=== PATIENT | female | born 1950 | race Caucasian/White ===

== ENCOUNTER 2017-06-08 11:15 | Inpatient (IN) ==
[2017-06-08] MEDS ORDERED: 0.9 % Sodium Chloride 500 ML IVC ONE (11:37)
--- NOTE | 2017-06-08 11:42 | Emergency Department Note ---
Disposition Clinical Impression: Dysphagia Qualifiers: Dysphagia type: unspecified Qualified Code(s): R13.10 - Dysphagia, unspecified Pneumonia Qualifiers: Pneumonia type: due to unspecified organism Laterality: right Lung location: lower lobe of lung Qualified Code(s): J18.1 - Lobar pneumonia, unspecified organism Protein calorie malnutrition Qualifiers: Protein-calorie malnutrition severity: unspecified severity Qualified Code(s): E46 - Unspecified protein-calorie malnutrition Failure to thrive Qualifiers: Failure to thrive age range: in adult Qualified Code(s): R62.7 - Adult failure to thrive Disposition: Admitted As Inpatient Condition: Fair Referrals: Natalya Vasquez MD [Primary Care Provider] - Forms: ED Satisfaction Letter, Work/School Release General Adult HPI - General Chief complaint: ED General Medical Stated complaint: Hypotension Time Seen by Provider: 06/08/17 11:20 Source: patient Limitations: no limitations Nursing Notes Reviewed: Yes Vital Signs Reviewed: Yes - History of Present Illness HPI Narrative: 67 year old female with a past medical history of COPD. She reports generalized fatigue and difficulty swallowing and significant weight loss over the last multiple months. She reports it is getting especially severe and that she had difficulty getting out of her chair today because of her fatigue. She has a long history of smoking and has had a chronic cough now for some time. She reports that when she is tries to swallow things she regurgitates it back up into her nose. Due to this she says that she is not eating. She denies any area of pain aside from a small part of her right upper back where some ribs are now sticking out that are uncomfortable to lay on. She denies any known fever. Her cough is nonproductive. She has lost over 50 pounds over the last few months. She does not have a history of cancer that she is aware of. She does not have any abdominal pain. She reports that she took her blood pressure home yesterday and that her systolic blood pressure was 90. Pain Scale: 0 Improves with: nothing Worsens with: nothing Associated symptoms: Reports: denies other symptoms Treatments Prior to Arrival: none - Related Data Home Medications Medication Instructions Recorded Confirmed Albuterol Neb [Proventil Neb] 2.5 mg IH Q4H PRN 12/22/15 07/23/16 Albuterol Sulfate [Proair Hfa] 2 puff IH Q4H PRN 12/22/15 07/23/16 Fluticasone/Salmeterol [Advair 1 puff IH BID 12/22/15 07/23/16 250-50 Diskus] Tiotropium [Spiriva] 18 mcg IH 0700 12/22/15 07/23/16 Previous Rx's Medication Instructions Recorded Lactobacillus [Culturelle] 1 each PO BID #6 cap.sprink 07/26/16 Loratadine [Claritin] 10 mg PO DAILY PRN #0 07/26/16 Allergies Allergy/AdvReac Type Severity Reaction Status Date / Time NSAIDS (Non-Steroidal AdvReac unknown Verified 06/08/17 13:26 Anti-Inflamma All systems ED: reviewed and negative except as stated. Constitutional: Denies: fever ENT ED: Denies: throat pain Cardiovascular: Denies: chest pain Respiratory: Reports: cough, dyspnea Musculoskeletal: Reports: back pain (right upper back) Neurological: Denies: headache Endocrine: Reports: fatigue Past Medical History - Past Medical History Attestation: Yes The following information was validated with the patient. Source: patient Medical history: Reports: non-contributory Surgical history: Reports: other Psychiatric history: Reports: anxiety [employer] history: Reports: bilateral tubal ligation - Social History Smoking Status: Current every day smoker Smokeless Tobacco Status: No Alcohol use: Reports: none Drug use: Reports: none Physical Exam - General Limitations: no limitations General appearance: alert, in no apparent distress, cachectic - Head Head exam: atraumatic - Eye Eye exam: Present: normal appearance, PERRL - ENT ENT exam: normal exam - Neck Neck exam: Present: normal inspection - Chest Chest inspection: Present: normal inspection, other (Posterior ribs are very prominent. The angles of rib on the right side is more prominent in the angle rib on the left which is the area that she says is uncomfortable to lay on. No gross deformity is noted). Absent: rash - Respiratory Respiratory exam: Present: other (diminished breath sounds throughout. Mild occasional wheezes present) - Cardiovascular Cardiovascular exam: Present: regular rate, normal rhythm - Abdominal Exam Abdominal exam: Present: soft, Non-Tender - Extremities Exam Extremities exam: Present: normal inspection - Neurological Exam Neurological exam: Present: alert, oriented X3 - Psychiatric Psychiatric exam: Present: normal affect, normal mood - Skin Skin exam: Present: warm, dry Course Course Narrative: No mass is seen on imaging. CT abdomen shows nothing acute. CTA chest shows pneumonia. CT neck negative. Will give antibiotics and IVF and admit. Pre- albumin is low. Unclear etiology of difficulty swallowing. Vital Signs Temperature 98.6 F 06/08/17 11:16 Pulse Rate 106 06/08/17 11:16 Respiratory Rate 16 06/08/17 11:16 Blood Pressure 126/83 06/08/17 11:16 O2 Sat by Pulse Oximetry 98 06/08/17 11:16 Temperature 98.6 F 06/08/17 11:16 Pulse Rate 97 06/08/17 14:42 Respiratory Rate 20 06/08/17 14:42 Blood Pressure 125/79 06/08/17 14:42 O2 Sat by Pulse Oximetry 92 06/08/17 14:42 Oxygen Delivery Oxygen Delivery Nasal Cannula Medical Decision Making - Medical Records Medical records reviewed: Yes I reviewed the patient's medical records. - Lab Data Lab results reviewed: Yes I reviewed the patient's lab results. Result diagrams: 06/08/17 12:00 06/08/17 12:00 Lab Results 06/08/17 06/08/17 06/08/17 Range/Units 12:00 12:00 12:00 WBC 12.1 H (4.3-11.1) K/mcL RBC 5.22 H (3.82-4.97) M/mcL Hgb 17.0 H (11.5-15.4) g/dL Hct 48.8 H (35.3-44.9) % MCV 93.5 (83.0-100.0) fL MCH 32.6 (28.0-33.3) pg MCHC 34.8 (31.6-35.5) g/dL RDW 12.2 (11.5-14.5) % Plt Count 150 (140-400) K/mcL MPV 10.0 (9.4-12.4) fL Immature Gran % 0.6 (0-4) % Seg Neutrophils % 82.5 % Lymphocytes % 12.1 % Monocytes % 4.6 % Eosinophils % 0.0 % Basophils % 0.2 % Neutrophils # 9.9 H (1.6-8.9) K/mcL Lymphocytes # 1.5 (0.6-4.6) K/mcL Monocytes # 0.6 (0.0-1.3) K/mcL Eosinophils # 0.0 (0.0-0.6) K/mcL Basophils # 0.0 (0.0-0.2) K/mcL Sodium 133 L (136-145) mEq/L Potassium 4.2 (3.5-5.1) mEq/L Chloride 99 (98-107) mEq/L Carbon Dioxide 28 (23-29) mEq/L BUN 8 (8-23) mg/dL Creatinine 0.49 L (0.60-1.20) mg/dL Est GFR ( Amer) > 60 (> 60) Est GFR (Non-Af Amer) > 60 (> 60) BUN/Creatinine Ratio 16 (6-26) Glucose 118 H (70-105) mg/dL Calculated Osmolality 275 L (280-300) Calcium 9.5 (8.6-10.3) mg/dL Phosphorus 3.7 (2.7-4.5) mg/dL Magnesium 1.8 (1.6-2.6) mg/dL Total Bilirubin 0.8 (0.3-1.0) mg/dL Direct Bilirubin 0.2 (0.0-0.2) mg/dL Indirect Bilirubin 0.6 (0.0-1.2) mg/dL AST 23 (13-39) Units/L ALT 19 (7-52) Units/L Alkaline Phosphatase 78 (34-104) Units/L Troponin I (< 0.04) ng/mL Serum Total Protein 7.1 (6.4-8.9) g/dL Albumin 3.8 (3.5-5.7) g/dL Globulin 3.3 (2.4-3.5) g/dL Albumin/Globulin Ratio 1.2 (1.1-2.2) Prealbumin 8.6 L (17.0-34.0) mg/dL Lipase 3 L (11-82) Units/L TSH (0.340-5.600) mcIU/mL Urine Color (Yellow) Urine Clarity (Clear) Urine pH (5.0-8.0) pH Units Ur Specific [place] (1.010-1.025) Urine Protein (Neg-Trace) mg/dL Urine Glucose (UA) (Normal) mg/dL Urine Ketones (Negative) mg/dL Urine Blood (Negative) Urine Nitrite (Negative) Urine Bilirubin (Negative) Urine Urobilinogen (Normal) mg/dL Ur Leukocyte Esterase (Negative) Ur Culture Indicated? (NO) 06/08/17 06/08/17 06/08/17 Range/Units 12:00 12:00 14:45 WBC (4.3-11.1) K/mcL RBC (3.82-4.97) M/mcL Hgb (11.5-15.4) g/dL Hct (35.3-44.9) % MCV (83.0-100.0) fL MCH (28.0-33.3) pg MCHC (31.6-35.5) g/dL RDW (11.5-14.5) % Plt Count (140-400) K/mcL MPV (9.4-12.4) fL Immature Gran % (0-4) % Seg Neutrophils % % Lymphocytes % % Monocytes % % Eosinophils % % Basophils % % Neutrophils # (1.6-8.9) K/mcL Lymphocytes # (0.6-4.6) K/mcL Monocytes # (0.0-1.3) K/mcL Eosinophils # (0.0-0.6) K/mcL Basophils # (0.0-0.2) K/mcL Sodium (136-145) mEq/L Potassium (3.5-5.1) mEq/L Chloride (98-107) mEq/L Carbon Dioxide (23-29) mEq/L BUN (8-23) mg/dL Creatinine (0.60-1.20) mg/dL Est GFR ( Amer) (> 60) Est GFR (Non-Af Amer) (> 60) BUN/Creatinine Ratio (6-26) Glucose (70-105) mg/dL Calculated Osmolality (280-300) Calcium (8.6-10.3) mg/dL Phosphorus (2.7-4.5) mg/dL Magnesium (1.6-2.6) mg/dL Total Bilirubin (0.3-1.0) mg/dL Direct Bilirubin (0.0-0.2) mg/dL Indirect Bilirubin (0.0-1.2) mg/dL AST (13-39) Units/L ALT (7-52) Units/L Alkaline Phosphatase (34-104) Units/L Troponin I 0.03 (< 0.04) ng/mL Serum Total Protein (6.4-8.9) g/dL Albumin (3.5-5.7) g/dL Globulin (2.4-3.5) g/dL Albumin/Globulin Ratio (1.1-2.2) Prealbumin (17.0-34.0) mg/dL Lipase (11-82) Units/L TSH 1.113 (0.340-5.600) mcIU/mL Urine Color Yellow (Yellow) Urine Clarity Clear (Clear) Urine pH 7.0 (5.0-8.0) pH Units Ur Specific [place] 1.021 (1.010-1.025) Urine Protein Negative (Neg-Trace) mg/dL Urine Glucose (UA) Normal (Normal) mg/dL Urine Ketones Negative (Negative) mg/dL Urine Blood Negative (Negative) Urine Nitrite Negative (Negative) Urine Bilirubin Negative (Negative) Urine Urobilinogen Normal (Normal) mg/dL Ur Leukocyte Esterase Negative (Negative) Ur Culture Indicated? NO (NO) - Radiology Data Radiology results reviewed: Yes I reviewed the patient's radiology results. - EKG Data EKG #1 EKG attestation: Yes I reviewed and interpreted this EKG. EKG shows normal: sinus rhythm Rate: normal Rhythm: NSR [place]/QRS: normal Interpretation: no acute changes Attestation Statement - Attestation Attestation: I, Liban Hopkins, examined this patient and my medical decision-making was reviewed with the CUSTOMER SERVICE SALES CONSULTANT/PA/Advanced Practice Nurse/Resident Physician. I agree with the documented findings, disposition and treatment plan as described except to the extent set forth below. 67-year-old female presents emergency Department with concerns of difficulty swallowing. Patient spoke with her PCP over the phone this morning who recommended she be evaluated in emergency department. Patient states she has difficulty swallowing solids and liquids over the past few weeks. She has had a significant amount of weight loss over the past 2 months. Patient states she feels fatigued and dehydrated with a very dry tongue. Denies other recent trauma, chest pain, shortness of breath. Evaluation in the emergency Department she had O2 saturation of 90% on room air. Patient will be evaluated for possible cancer secondary to weight loss and dysphagia. CTA ordered to eval for cancer as well as to rule out PE.
[2017-06-08 12:38] LABS: Basophils % 0.2 %; Hematocrit 48.8 % (35.3-44.9); Immature Granulocytes % 0.6 % (0-4); Lymphocytes # 1.5 K/mcL (0.6-4.6); Lymphocytes % 12.1 %; Mean Corpuscular HGB Conc 34.8 g/dL (31.6-35.5); Mean Corpuscular Hemoglobin 32.6 pg (28.0-33.3); Mean Corpuscular Volume 93.5 fL (83.0-100.0); Monocytes # 0.6 K/mcL (0.0-1.3); Monocytes % 4.6 %; Neutrophils # 9.9 K/mcL (1.6-8.9); Platelet Count 150 K/mcL (140-400); Red Blood Count 5.22 M/mcL (3.82-4.97); Red Cell Distribution Width 12.2 % (11.5-14.5); Segmented Neutrophils % 82.5 %
[2017-06-08 13:33] LABS: Alanine Aminotransferase 19 Units/L (7-52); Albumin 3.8 g/dL (3.5-5.7); Albumin/Globulin Ratio 1.2 (1.1-2.2); Alkaline Phosphatase 78 Units/L (34-104); Aspartate Amino Transferase 23 Units/L (13-39); BUN/Creatinine Ratio 16 (6-26); Bilirubin,Direct 0.2 mg/dL (0.0-0.2); Bilirubin,Indirect 0.6 mg/dL (0.0-1.2); Bilirubin,Total 0.8 mg/dL (0.3-1.0); Blood Urea Nitrogen 8 mg/dL (8-23); Calcium 9.5 mg/dL (8.6-10.3); Carbon Dioxide 28 mEq/L (23-29); Chloride 99 mEq/L (98-107); Globulin 3.3 g/dL (2.4-3.5); Glucose 118 mg/dL (70-105); Lipase 3 Units/L (11-82); Magnesium 1.8 mg/dL (1.6-2.6); Osmolality,Calculated 275 (280-300); Phosphorous 3.7 mg/dL (2.7-4.5); Potassium 4.2 mEq/L (3.5-5.1); Sodium 133 mEq/L (136-145); Total Protein 7.1 g/dL (6.4-8.9); eGFR For African Americans > 60 (> 60); eGFR For Non-African Americans > 60 (> 60)
[2017-06-08] MEDS ORDERED: Levofloxacin 750 MG/150 ML 750 MG/150 ML BAG IVPB ONE (15:05)
[2017-06-08 15:09] LABS: Bilirubin,Urine Negative (Negative); Blood,Urine Negative (Negative); Clarity,Urine Clear (Clear); Color,Urine Yellow (Yellow); Glucose,Urine (UA) Normal (Normal); Ketones,Urine Negative (Negative); Leukocyte Esterase,Urine Negative (Negative); Nitrite,Urine Negative (Negative); Protein,Urine Negative (Neg-Trace); Specific Gravity,Urine 1.021 (1.010-1.025); Urobilinogen,Urine Normal (Normal)
[2017-06-08] MEDS ORDERED: *HR* HYDROcodone/Acet 5/325 mg TABLET PO PRN (21:12)
[2017-06-08] MEDS ORDERED: Acetaminophen 325 MG TABLET PO PRN (21:12)
[2017-06-08] MEDS ORDERED: Ondansetron ODT 4 MG TAB.RAPDIS SL PRN (21:12)
[2017-06-08] MEDS ORDERED: Naloxone 0.4 MG/ML INJ IVP PRN (21:12)
--- NOTE | 2017-06-08 22:09 | Internal Med History&Physical ---
<Devin Elam - Last Filed: 06/08/17 23:21> Date of Encounter: 06/08/17 Time of Encounter: 21:30 Assessment and Plan (1) Aspiration pneumonia Current visit: Yes Status: Acute History of oropharyngeal dysphagia with aspiration involves RML & RLL Patient on 2LpM O2 via NC Orders for IS, nebs, & Zosyn Further work up for oropharyngeal dysphagia as below Qualifiers: Aspiration pneumonia type: unspecified Laterality: right Lung location: unspecified part of lung Qualified Code(s): J69.0 - Pneumonitis due to inhalation of food and vomit (2) Oropharyngeal dysphagia Current visit: Yes Status: Acute significant weight loss concerning for underlying malignancy though can be attributed to the poor intake DDx includes malignancy, Sjogren's failed RN bedside swallow study will pursue further work up including ST swallow study, barium swallow, SSA-SSB- RF, and GI consult for consideration of EGD will keep patient NPO in the meantime with IVF (3) Failure to thrive Current visit: Yes Status: Acute secondary to dysphagia and markedly reduce PO intake consider nutrition consult once patient is no longer NPO Qualifiers: Failure to thrive age range: in adult Qualified Code(s): R62.7 - Adult failure to thrive (4) Xerostomia Current visit: Yes Status: Acute plan as above (5) Xerophthalmia Current visit: Yes Status: Acute artificial tears ordered (6) COPD (chronic obstructive pulmonary disease) Current visit: No Status: Chronic PRN O2 & neb tx ordered do not suspect acute exacerbation due to lack of wheezing or sputum Qualifiers: COPD type: unspecified COPD Qualified Code(s): J44.9 - Chronic obstructive pulmonary disease, unspecified (7) Tobacco abuse Current visit: No Status: Chronic nicotine patch TD (8) DVT prophylaxis Current visit: Yes Status: Acute SCDs, ambulate with assist, subQ heparin Internal Medicine - H&P: HPI Admitted From: Home Plans for Post Hospital Care: Home History of present illness: Ms. Lindo is a 67 year old female with history of COPD (non-O2 dependent) who presents to the ED today with CC of SOA, fatigue, and ongoing weight loss. These problems have been gradual and ongoing for several months. Patient also cites dry eyes, dry mouth, difficulty swallowing stating food gift, and her throat, and about a 50 pound weight loss over the last for 5 months. When asked specifically whether probation in today, patient tells me that she felt like she was so weak today that if she just stated that she would . Patient states that when she eats, she feels like the food gets tracking the throat and she often costs immediately after eating or drinking anything. Patient states that if she takes her time, she is able to swallow food it does not have any trouble keeping it down; specifically, patient is not have any regurgitation when she swallows passed her throat. Patient states that her eyes are often dry and that when she sleeps, she will wake up with her tongue feeling like the skin of an elephant. Denies any swelling and tenderness in her cheeks, changes in her voice, or throat pain. Patient also elaborates on a tension that she feels in her neck that spreads up into her bilateral ears, but has difficulty specifically characterizing beyond to say that much. Patient denies any other known medical conditions beside COPD. Patient does smoke a significant amount of tobacco rolling her own cigarettes, and does drink alcohol but denies any street drugs. No new medications recently. No fevers, syncope, lightheadedness, visual disturbances, confusion, chest pain, worsening cough or sputum production, nausea, vomiting, diarrhea, constipation, blood in stool, melena, dysuria, vaginal bleeding, or like swelling. Emergency department workup was overall normal with the exception of mild hyponatremia, mild leukocytosis, and chest imaging which revealed right middle lobe right lower lobe consolidation consistent with multi-lobular pneumonia. CTA was done and negative. All other labs were virtually within normal limits; borderline hemoconcentration on CBC is noted as well. Past Med Surg Social Fam HX - Past Medical History Attestation: Yes The following information was validated with the patient. Medical history: non-contributory, COPD Psychiatric history: anxiety - Past Surgical History Surgical History: other - Social History Smoking Status: Current every day smoker Smokeless Tobacco Status: No Alcohol use: none, occasionally (Patient rolls are on cigarettes) Drug use: none Current living situation: Home - Independent, Home Activity Level: Independent ambulation Recent Out of Country Travel Within the Last 8 Weeks: No Exposure or Possible Exposure to Illness During Travel: No - Family History Mother Adopted: No Family Member Ethnicity: Non- Living Status: Still Living Hx Family Cardiac Disorders: Yes (Unknown) Hx Family Cancer: Yes (Uterine) Hx Family Endocrine Disorder: Yes Father Adopted: No Family Member Ethnicity: Non- Living Status: Hx Family Cardiac Disorders: Yes (Angina) Hx Family GI Disorders: Yes Hx Family Endocrine Disorder: Yes Hx Family Neuromuscular Disorders: Yes (Multiple Sclerosis) Hx Family Neurologic Disorders: Yes Internal Medicine - H&P: Meds Albuterol Neb [Proventil Neb] 2.5 mg IH Q4H PRN 12/22/15 [History] Albuterol Sulfate [Proair Hfa] 2 puff IH Q4H PRN 12/22/15 [History] Fluticasone/Salmeterol [Advair 250-50 Diskus] 1 puff IH BID 12/22/15 [History] Tiotropium [Spiriva] 18 mcg IH 0700 12/22/15 [History] Lactobacillus [Culturelle] 1 each PO BID #6 cap.sprink 07/26/16 [Rx] Loratadine [Claritin] 10 mg PO DAILY PRN #0 07/26/16 [Rx] 3 Allergy/AdvReac Type Severity Reaction Status Date / Time NSAIDS (Non-Steroidal AdvReac unknown Verified 06/08/17 13:26 Anti-Inflamma All Systems PM: A 10-system review of systems was performed and is negative for pertinent findings except as documented above in the HPI. Review of systems: As per HPI - Constitutional Vitals: Temp Pulse Resp BP Pulse Ox 98.1 F 105 15 130/91 96 06/08/17 17:49 06/08/17 17:49 06/08/17 17:49 06/08/17 17:49 06/08/17 18:22 Exam: CONSTITUTIONAL: Alert and oriented X3, on nasal O2, calm/conversational, significant thoracic kyphosis, mild-moderate cachexia HEAD: Normocephalic; atraumatic. EYES: PERRL, no scleral icterus, no drainage, no conjunctival injection NOSE: The nose is normal in appearance without rhinorrhea Oropharynx: dry mucosa without any apparent glandular swelling RESP: NRD without use of accessory musculature, CTA b/l with no wheezes/rales/ rhonchi CARD: Regular rhythm, without murmurs, rubs, or gallop ABD: grossly normal, soft, non-tender, no guarding/distention/rigidity SKIN: normal appearance, no pallor/diaphoresis,mottling,jaundice,cyanosis EXT: DP/Rad pulses 2+ and symmetrical; no pedal edema; no other lesions seen PSYCH: appropriate mood/affect Internal Med - H&P Results - Labs CBC & Chem 7: 06/08/17 12:00 06/08/17 12:00 <Martha Don - Last Filed: 06/09/17 05:38> Date of Encounter: 06/09/17 Internal Medicine - H&P: HPI History of present illness: Ms. Lindo is a 67 year old female All Systems PM: A 10-system review of systems was performed and is negative for pertinent findings except as documented above in the HPI. - Constitutional Vitals: Temp Pulse Resp BP Pulse Ox 97.4 F L 84 15 113/73 96 06/09/17 02:35 06/09/17 02:35 06/09/17 02:35 06/09/17 02:35 06/09/17 02:35 Internal Med - H&P Results - Labs CBC & Chem 7: 06/09/17 04:27 06/09/17 04:27 Labs: Short CBC 06/09/17 Range/Units 04:27 WBC 7.8 (4.3-11.1) K/mcL Hgb 14.6 D (11.5-15.4) g/dL Hct 43.3 (35.3-44.9) % Plt Count 146 (140-400) K/mcL Neutrophils # 5.4 (1.6-8.9) K/mcL BMP 06/09/17 04:27 Sodium 134 L Potassium 3.8 Chloride 103 Carbon Dioxide 30 H BUN 6 L Creatinine 0.45 L Glucose 99 Calcium 8.8 Liver Function 06/09/17 Range/Units 04:27 Total Bilirubin 0.7 (0.3-1.0) mg/dL AST 12 L (13-39) Units/L ALT 12 (7-52) Units/L Alkaline Phosphatase 52 (34-104) Units/L Albumin 3.1 L (3.5-5.7) g/dL - Attending Attestation I have seen and examined this patient independently. I have discussed with resident physician Dr. Elam regarding the management plan. Agree with the documentation.
[2017-06-08] MEDS ORDERED: Methocarbamol 500 MG TABLET PO PRN (22:16)
[2017-06-08] MEDS ORDERED: Albuterol 2.5 MG/3 ML NEBULIZER IH PRN (22:24)
[2017-06-08] MEDS ORDERED: Ipratropium/Albuterol Neb 3 ML IH PRN (22:24)
[2017-06-08] MEDS: *HR* LORazepam 2 MG/ML VIAL IVP PRN (22:41)
[2017-06-08] MEDS: *HR* Heparin 5,000 UNIT/ML VIAL SQ SCH (22:41)
[2017-06-08] MEDS: Nicotine 21 MG PATCH.TD24 TD SCH (22:41)
[2017-06-08] MEDS: 0.9 % Sodium Chloride 1,000 ML IVC SCH (23:22)
[2017-06-09] MEDS: Piperacillin/Tazobactam 3.375 GM/200 ML BAG IVPB SCH ×3 (01:58→17:08)
[2017-06-09 05:09] LABS: Basophils % 0.3 %; Eosinophils % 0.4 %; Hematocrit 43.3 % (35.3-44.9); Immature Granulocytes % 0.3 % (0-4); Lymphocytes # 1.9 K/mcL (0.6-4.6); Lymphocytes % 24.1 %; Mean Corpuscular HGB Conc 33.7 g/dL (31.6-35.5); Mean Corpuscular Hemoglobin 32.2 pg (28.0-33.3); Mean Corpuscular Volume 95.6 fL (83.0-100.0); Monocytes # 0.5 K/mcL (0.0-1.3); Monocytes % 5.9 %; Neutrophils # 5.4 K/mcL (1.6-8.9); Platelet Count 146 K/mcL (140-400); Red Blood Count 4.53 M/mcL (3.82-4.97); Red Cell Distribution Width 12.3 % (11.5-14.5)
[2017-06-09 05:15] LABS: Hemoglobin 14.6 g/dL (11.5-15.4)
[2017-06-09 05:27] LABS: Alanine Aminotransferase 12 Units/L (7-52); Albumin 3.1 g/dL (3.5-5.7); Albumin/Globulin Ratio 1.2 (1.1-2.2); Alkaline Phosphatase 52 Units/L (34-104); Aspartate Amino Transferase 12 Units/L (13-39); BUN/Creatinine Ratio 13 (6-26); Bilirubin,Total 0.7 mg/dL (0.3-1.0); Blood Urea Nitrogen 6 mg/dL (8-23); Calcium 8.8 mg/dL (8.6-10.3); Carbon Dioxide 30 mEq/L (23-29); Chloride 103 mEq/L (98-107); Globulin 2.6 g/dL (2.4-3.5); Glucose 99 mg/dL (70-105); Osmolality,Calculated 276 (280-300); Potassium 3.8 mEq/L (3.5-5.1); Sodium 134 mEq/L (136-145); Total Protein 5.7 g/dL (6.4-8.9); eGFR For African Americans > 60 (> 60); eGFR For Non-African Americans > 60 (> 60)
[2017-06-09] MEDS: *HR* Heparin 5,000 UNIT/ML VIAL SQ SCH ×2 (05:30→17:12)
[2017-06-09] MEDS: Nicotine 21 MG PATCH.TD24 TD SCH (07:59)
[2017-06-09] MEDS: 0.9 % Sodium Chloride 1,000 ML IVC SCH (08:58)
--- NOTE | 2017-06-09 10:09 | Internal Med Progress Note ---
Date of Encounter: 06/09/17 Time of Encounter: 10:07 - Assessment and plan (1) Aspiration pneumonia Current Visit: Yes Status: Acute Assessment and plan: Continue with antibiotics with Zosyn. Follow up on cultures. Continue with IV fluids. Nebs treatments. Check urine strep and Legionella. Check sputum cultures. Qualifiers: Aspiration pneumonia type: unspecified Laterality: right Lung location: unspecified part of lung Qualified Code(s): J69.0 - Pneumonitis due to inhalation of food and vomit (2) Dysphagia Current Visit: Yes Status: Acute Assessment and plan: This is causing weight loss. She has other symptoms including dry eyes dry mouth. TSH is normal. Antibodies for Sjogren's syndrome has been sent. Speech to see. GI evaluation. Nothing by mouth. Qualifiers: Dysphagia type: oropharyngeal phase Qualified Code(s): R13.12 - Dysphagia, oropharyngeal phase (3) COPD (chronic obstructive pulmonary disease) Current Visit: No Status: Chronic Assessment and plan: 9 exacerbation. Continue inhalers. Qualifiers: COPD type: unspecified COPD Qualified Code(s): J44.9 - Chronic obstructive pulmonary disease, unspecified (4) Xerostomia Current Visit: Yes Status: Acute Assessment and plan: Symptomatic treatment. (5) Xerophthalmia Current Visit: Yes Status: Acute Assessment and plan: Symptomatic treatment. (6) Tobacco abuse Current Visit: No Status: Chronic Assessment and plan: Nicotine patch (7) DVT prophylaxis Current Visit: Yes Status: Acute Assessment and plan: Heparin subcutaneous - Subjective Interval history: Patient was seen and examined. She was admitted yesterday with multiple complaints. She is being treated for aspiration pneumonia here. Says that she has been losing weight and has been troubled with swallowing difficulties causing weight loss. She does mention dry eyes, dry mouth, and fatigue. She has been afebrile - Constitutional Vitals: Temp Pulse Resp BP Pulse Ox 97.8 F 90 16 133/80 93 06/09/17 07:16 06/09/17 07:16 06/09/17 07:16 06/09/17 07:16 06/09/17 07:16 Exam: GEN: NAD CVS: RRR. S1, S2, No m/r/g RESP: Diminished. Coarse breath sounds at the bases. ABD: Soft, NT, ND, +BS EXT: No edema. 2+ DP. No rashes NEURO: Nonfocal Internal Medicine: Result - Labs CBC & Chem 7: 06/09/17 04:27 06/09/17 04:27 Consult Discharge Plan - Plan Referrals: Natalya Vasquez MD [Primary Care Provider] -
[2017-06-09] MEDS: *HR* LORazepam 2 MG/ML VIAL IVP PRN (20:44)
[2017-06-10] MEDS: Piperacillin/Tazobactam 3.375 GM/200 ML BAG IVPB SCH ×2 (00:53→09:50)
[2017-06-10] MEDS: OxyCODONE CONC 5 MG/0.25 ML ORAL.SYG PO PRN ×2 (03:32→22:02)
[2017-06-10] MEDS: *HR* Heparin 5,000 UNIT/ML VIAL SQ SCH ×2 (03:33→18:41)
[2017-06-10 07:59] LABS: BUN/Creatinine Ratio 9 (6-26); Blood Urea Nitrogen 5 mg/dL (8-23); Calcium 8.9 mg/dL (8.6-10.3); Carbon Dioxide 29 mEq/L (23-29); Chloride 104 mEq/L (98-107); Glucose 97 mg/dL (70-105); Osmolality,Calculated 279 (280-300); Sodium 136 mEq/L (136-145); eGFR For African Americans > 60 (> 60); eGFR For Non-African Americans > 60 (> 60)
[2017-06-10 08:01] LABS: Basophils % 0.3 %; Eosinophils # 0.1 K/mcL (0.0-0.6); Eosinophils % 1.2 %; Hematocrit 48.8 % (35.3-44.9); Immature Granulocytes % 0.3 % (0-4); Lymphocytes # 1.5 K/mcL (0.6-4.6); Lymphocytes % 24.8 %; Mean Corpuscular HGB Conc 33.4 g/dL (31.6-35.5); Mean Corpuscular Hemoglobin 31.8 pg (28.0-33.3); Mean Corpuscular Volume 95.3 fL (83.0-100.0); Mean Platelet Volume 9.3 fL (9.4-12.4); Monocytes # 0.4 K/mcL (0.0-1.3); Platelet Count 171 K/mcL (140-400); Red Blood Count 5.12 M/mcL (3.82-4.97); Segmented Neutrophils % 67.4 %
[2017-06-10 08:04] LABS: Hemoglobin 16.3 g/dL (11.5-15.4)
--- NOTE | 2017-06-10 09:04 | Electrocardiograph Report ---
[facility] Test Date: 2017-06-08 Pat Name: Denise Lindo Department: 102 Room: 2A33 Gender: F Cooper Helper: Elizabeth : 1950 Requested By: William Camejo Order Number: [id number] Reading MD: Enrique Desir DO Measurements Intervals [place] Rate: 105 P: 64 AR: 164 QRS: 23 QRSD: 71 T: 51 QT: 310 QTc: 371 Interpretive Statements SINUS TACHYCARDIA LOW QRS VOLTAGE IN EXTREMITY LEADS [QRS DEFLECTION < 0.5 mV IN LIMB LEADS] SEPTAL MYOCARDIAL INFARCTION [40+ ms Q WAVE IN V1/V2], PROBABLY OLD Electronically Signed On 06-10-2017 9:03:28 EST by Enrique Desir DO
[2017-06-10] MEDS: Nicotine 21 MG PATCH.TD24 TD SCH (09:50)
--- NOTE | 2017-06-10 12:06 | Internal Med Progress Note ---
Date of Encounter: 06/10/17 Time of Encounter: 12:04 - Assessment and plan (1) Aspiration pneumonia Current Visit: Yes Status: Acute Assessment and plan: Change antibiotics to Unasyn. Nebs treatments. Wean down oxygen as tolerated. Negative urine strep and Legionella.. Sputum cultures pending. Qualifiers: Aspiration pneumonia type: unspecified Laterality: right Lung location: unspecified part of lung Qualified Code(s): J69.0 - Pneumonitis due to inhalation of food and vomit (2) Dysphagia Current Visit: Yes Status: Acute Assessment and plan: This is causing weight loss. She has other symptoms including dry eyes dry mouth. TSH is normal. Antibodies for Sjogren's syndrome has been sent. MBS ordered. On Modify diet. GI evaluation. Nothing by mouth after midnight in case GI decides to do an EGD Qualifiers: Dysphagia type: oropharyngeal phase Qualified Code(s): R13.12 - Dysphagia, oropharyngeal phase (3) COPD (chronic obstructive pulmonary disease) Current Visit: No Status: Chronic Assessment and plan: Not an exacerbation. Continue inhalers. Qualifiers: COPD type: unspecified COPD Qualified Code(s): J44.9 - Chronic obstructive pulmonary disease, unspecified (4) Xerostomia Current Visit: Yes Status: Acute Assessment and plan: Symptomatic treatment. (5) Xerophthalmia Current Visit: Yes Status: Acute Assessment and plan: Symptomatic treatment. (6) Tobacco abuse Current Visit: No Status: Chronic Assessment and plan: Nicotine patch (7) DVT prophylaxis Current Visit: Yes Status: Acute Assessment and plan: Heparin subcutaneous - Subjective Interval history: Patient was seen and examined. No acute events. She is feeling better. Afebrile. She was admitted with multiple complaints. She is being treated for aspiration pneumonia here. Has been losing weight and has been troubled with swallowing difficulties causing weight loss. She does mention dry eyes, dry mouth, and fatigue. She has been afebrile - Constitutional Vitals: Temp Pulse Resp BP Pulse Ox 98.1 F 97 16 131/81 98 06/10/17 10:57 06/10/17 10:57 06/10/17 10:57 06/10/17 10:57 06/10/17 10:57 Exam: GEN: NAD CVS: RRR. S1, S2, No m/r/g RESP: Diminished. Coarse breath sounds at the bases. ABD: Soft, NT, ND, +BS EXT: No edema. 2+ DP. No rashes NEURO: Nonfocal Internal Medicine: Result - Labs CBC & Chem 7: 06/10/17 07:31 06/10/17 07:31 Labs: Short CBC 06/10/17 Range/Units 07:31 WBC 5.9 (4.3-11.1) K/mcL Hgb 16.3 H D (11.5-15.4) g/dL Hct 48.8 H (35.3-44.9) % Plt Count 171 (140-400) K/mcL Neutrophils # 4.0 (1.6-8.9) K/mcL BMP 06/10/17 07:31 Sodium 136 Potassium 4.0 Chloride 104 Carbon Dioxide 29 BUN 5 L Creatinine 0.53 L Glucose 97 Calcium 8.9 Consult Discharge Plan - Plan Referrals: Natalya Vasquez MD [Primary Care Provider] -
[2017-06-10] MEDS: Ampicillin/Sulbactam 3,000 MG in 0.9 % Sodium Chloride Mini Bag 100 ML IVPB SCH (18:41)
[2017-06-10] MEDS: *HR* LORazepam 2 MG/ML VIAL IVP PRN (22:02)
[2017-06-11] MEDS: Ampicillin/Sulbactam 3,000 MG in 0.9 % Sodium Chloride Mini Bag 100 ML IVPB SCH ×4 (00:33→18:10)
[2017-06-11] MEDS: *HR* Heparin 5,000 UNIT/ML VIAL SQ SCH ×2 (05:58→17:59)
--- NOTE | 2017-06-11 11:29 | Gastroenterology Consult Note ---
Date of Encounter: 06/11/17 Time of Encounter: 10:15 - Assessment and plan (1) Dysphagia Current Visit: Yes Status: Acute Assessment and plan: Barium swallow completed today, deep penetration was seen without evidence of aspiration, reflux of contrast was noted into the nasal cavity. Encourage fluid intake today. Plan for EGD tomorrow with possible dilation, keep NPO at midnight. Qualifiers: Dysphagia type: oropharyngeal phase Qualified Code(s): R13.12 - Dysphagia, oropharyngeal phase (2) Weight loss Current Visit: Yes Status: Acute Assessment and plan: Weight over the past year: 98.1 lbs on 06/10/2017 98.2 lbs on 04/30/2017 111.6 lbs on 11/30/2016 110 lbs on 11/02/2016 110 lbs on 08/09/2016 Plan for EGD tomorrow. - Time Spent With Patient Total time spent is greater than 50% in coordination of care (as documented) at patient's floor/unit and/or counseling patient: GI History of Present Illness - Data of Consult Patient: new to practice Consult date: 06/11/17 Requesting Physician: Josef Austin - Consult Narrative Reason for consult: Dysphagia, weight loss History of present illness: Ms. Lindo is a 67 year old female with PMHx of COPD who presented to the ED with difficulty swallowing and reports weight loss of 50 lbs over the last few months. Patient states that when she eats, she feels like the food gets stuck in the throat and she often coughs immediately after eating or drinking anything. Patient states that if she takes her time, she is able to swallow food and does not have any trouble keeping it down. CT A/P with no acute process , chest CTA showed pneumonia, and CT neck was negative. She denies fever, chills , chest pain, nausea, vomiting, constipation, diarrhea, melena, or hematochezia. Procedures: None NSAIDs: None Anticoagulation: None Past Med Surg Social Fam HX - Past Medical History Medical history: non-contributory, COPD Psychiatric history: anxiety - Past Surgical History Surgical History: other - Social History Smoking Status: Current every day smoker Smokeless Tobacco Status: No Alcohol use: none, occasionally (Patient rolls are on cigarettes) Drug use: none - Family History Mother Adopted: No Family Member Ethnicity: Non- Living Status: Still Living Hx Family Cardiac Disorders: Yes (Unknown) Hx Family Cancer: Yes (Uterine) Hx Family Endocrine Disorder: Yes Father Adopted: No Family Member Ethnicity: Non- Living Status: Hx Family Cardiac Disorders: Yes (Angina) Hx Family GI Disorders: Yes Hx Family Endocrine Disorder: Yes Hx Family Neuromuscular Disorders: Yes (Multiple Sclerosis) Hx Family Neurologic Disorders: Yes - Gastrointestinal Gastrointestinal: Present: as per HPI - Constitutional Constitutional: as per HPI - EENT Eyes: as per HPI Ears: Present: as per HPI Nose, mouth and throat: Present: as per HPI - Cardiovascular Cardiovascular ROS: Present: as per HPI - Respiratory Respiratory IM: Present: as per HPI - Genitourinary Genitourinary: Absent: change in color, Urinary frequency - Neurological ROS Neurological GI: Present: as per HPI - Hematologic/Lymphatic Hematologic/Lymphatic pediatric: Present: as per HPI - Musculoskeletal Musculoskeletal ROS GI: Present: as per HPI - Integumentary Integumentary GI: Present: as per HPI - Psychiatric ROS Psychiatric GI: Present: as per HPI - Endocrine Endocrine IM: Present: as per HPI - Constitutional Vitals: Temp Pulse Resp BP Pulse Ox 98.0 F 93 17 132/81 99 06/11/17 08:49 06/11/17 08:49 06/11/17 08:49 06/11/17 08:49 06/11/17 08:49 General appearance: Present: cooperative, A&O X 3, no acute distress, answers questions appropriately - Head Head exam: Present: atraumatic, normocephalic - Eye Eye exam: Present: normal appearance, sclera anicteric - ENT ENT exam: Present: mucous membranes dry - Neck Neck exam general surgery: Present: normal inspection, trachea midline - Respiratory Respiratory exam: Present: decreased breath sounds, CTAB. Absent: rales, rhonchi - Cardiovascular Cardiovascular exam: Present: RRR, +S1, +S2 - GI/Abdominal GI/Abdominal exam: Present: soft, no peritoneal signs. Absent: distended, firm , guarding, tenderness - Rectal Rectal exam: Present: deferred - Extremities Exam Extremities exam: Present: warm - Neurological Exam Neurological exam: Present: no focal deficits - Psychiatric Psychiatric exam: Present: normal affect, normal mood - Skin Skin exam: Present: dry, intact, normal color, warm Results - Labs CBC & Chem 7: 01/21/18 07:31 06/10/17 07:31 Labs: Last Result Calcium 8.9 mg/dL (8.6-10.3) 06/10/17 07:31 Troponin I 0.03 ng/mL (< 0.04) 06/08/17 12:00 Entire Visit Hgb 16.3 g/dL (11.5-15.4) H D 06/10/17 07:31 Hct 48.8 % (35.3-44.9) H 06/10/17 07:31 Total Bilirubin 0.7 mg/dL (0.3-1.0) 06/09/17 04:27 AST 12 Units/L (13-39) L 06/09/17 04:27 ALT 12 Units/L (7-52) 06/09/17 04:27 Lipase 3 Units/L (11-82) L 06/08/17 12:00 - Impressions Impressions Videofluoroscopic Swallow 06/11/17 17:07 IMPRESSION: 1. Deep penetration without evidence of aspiration. Please see separate speech pathology report for full discussion of findings and recommendations. D/ / 06/11/2017 09:30:39 Danie Felipe MD / cristiano Interpreting Provider: Danie Felipe MD Consult Discharge Plan - Plan Referrals: Natalya Vasquez MD [Primary Care Provider] -
[2017-06-11] MEDS: Nicotine 21 MG PATCH.TD24 TD SCH (13:09)
--- NOTE | 2017-06-11 13:19 | Internal Med Progress Note ---
Date of Encounter: 06/11/17 Time of Encounter: 11:25 - Assessment and plan (1) Aspiration pneumonia Current Visit: Yes Status: Acute Assessment and plan: Continue with Unasyn. Nebs treatments. Wean down oxygen as tolerated. Negative urine strep and Legionella.. Sputum cultures pending. Qualifiers: Aspiration pneumonia type: unspecified Laterality: right Lung location: unspecified part of lung Qualified Code(s): J69.0 - Pneumonitis due to inhalation of food and vomit (2) Dysphagia Current Visit: Yes Status: Acute Assessment and plan: This is causing weight loss. She has other symptoms including dry eyes dry mouth. TSH is normal. Antibodies for Sjogren's syndrome has been sent. MBS ordered. On Modify diet. I spoke to GI will plan on doing an EGD this afternoon. She failed swallow study. Qualifiers: Dysphagia type: oropharyngeal phase Qualified Code(s): R13.12 - Dysphagia, oropharyngeal phase (3) COPD (chronic obstructive pulmonary disease) Current Visit: No Status: Chronic Assessment and plan: Not an exacerbation. Continue inhalers. Qualifiers: COPD type: unspecified COPD Qualified Code(s): J44.9 - Chronic obstructive pulmonary disease, unspecified (4) Xerostomia Current Visit: Yes Status: Acute Assessment and plan: Symptomatic treatment. (5) Xerophthalmia Current Visit: Yes Status: Acute Assessment and plan: Symptomatic treatment. (6) Tobacco abuse Current Visit: No Status: Chronic Assessment and plan: Nicotine patch (7) Severe protein-calorie malnutrition Current Visit: Yes Status: Acute Assessment and plan: Diabetes consulted. (8) DVT prophylaxis Current Visit: Yes Status: Acute Assessment and plan: Heparin subcutaneous - Subjective Interval history: Patient was seen and examined. No acute events. She failed barium swallow study. Continues to feel lethargic. Afebrile. She was admitted with multiple complaints. She is being treated for aspiration pneumonia here. Has been losing weight and has been troubled with swallowing difficulties causing weight loss. She does mention dry eyes, dry mouth, and fatigue. She has been afebrile - Constitutional Vitals: Temp Pulse Resp BP Pulse Ox 97.6 F 87 18 124/77 97 06/11/17 12:35 06/11/17 12:35 06/11/17 12:35 06/11/17 12:35 06/11/17 12:35 Exam: GEN: NAD CVS: RRR. S1, S2, No m/r/g RESP: Diminished. Coarse breath sounds at the bases. ABD: Soft, NT, ND, +BS EXT: No edema. 2+ DP. No rashes NEURO: Nonfoc Internal Medicine: Result - Labs CBC & Chem 7: 06/10/17 07:31 06/10/17 07:31 - Impressions Impressions Videofluoroscopic Swallow 06/11/17 17:07 IMPRESSION: 1. Deep penetration without evidence of aspiration. Please see separate speech pathology report for full discussion of findings and recommendations. D/ / 06/11/2017 09:30:39 Danie Felipe MD / cristiano Interpreting Provider: Danie Felipe MD Consult Discharge Plan - Plan Referrals: Natalya Vasquez MD [Primary Care Provider] -
[2017-06-11] MEDS: *HR* LORazepam 2 MG/ML VIAL IVP PRN (21:59)
[2017-06-12] MEDS: Ampicillin/Sulbactam 3,000 MG in 0.9 % Sodium Chloride Mini Bag 100 ML IVPB SCH ×4 (00:15→17:31)
[2017-06-12] MEDS: 0.9 % Sodium Chloride 1,000 ML IVC SCH ×2 (01:18→12:24)
[2017-06-12 04:50] LABS: Basophils % 0.7 %; Eosinophils # 0.1 K/mcL (0.0-0.6); Eosinophils % 2.9 %; Hematocrit 49.1 % (35.3-44.9); Hemoglobin 16.3 g/dL (11.5-15.4); Immature Granulocytes % 0.5 % (0-4); Lymphocytes # 1.5 K/mcL (0.6-4.6); Lymphocytes % 37.5 %; Mean Corpuscular HGB Conc 33.2 g/dL (31.6-35.5); Mean Corpuscular Hemoglobin 31.6 pg (28.0-33.3); Mean Corpuscular Volume 95.2 fL (83.0-100.0); Mean Platelet Volume 9.2 fL (9.4-12.4); Monocytes # 0.4 K/mcL (0.0-1.3); Platelet Count 200 K/mcL (140-400); Red Blood Count 5.16 M/mcL (3.82-4.97); Red Cell Distribution Width 11.9 % (11.5-14.5); Segmented Neutrophils % 48.4 %
[2017-06-12 04:51] LABS: BUN/Creatinine Ratio 9 (6-26); Blood Urea Nitrogen 4 mg/dL (8-23); Calcium 9.2 mg/dL (8.6-10.3); Carbon Dioxide 34 mEq/L (23-29); Chloride 102 mEq/L (98-107); Glucose 103 mg/dL (70-105); Osmolality,Calculated 285 (280-300); Potassium 4.3 mEq/L (3.5-5.1); Sodium 139 mEq/L (136-145); eGFR For African Americans > 60 (> 60); eGFR For Non-African Americans > 60 (> 60)
[2017-06-12 05:17] LABS: Platelet Estimate Normal (Normal); Reactive Lymphocytes Present (Not Present)
[2017-06-12] MEDS: *HR* Heparin 5,000 UNIT/ML VIAL SQ SCH ×2 (06:10→18:44)
[2017-06-12 08:31] LABS: SSA 52 (Anti-RO) Antibody 2 AU/mL (0-40); SSA 60 (Anti-RO) Antibody 0 AU/mL (0-40)
[2017-06-12] MEDS: Nicotine 21 MG PATCH.TD24 TD SCH (10:00)
--- NOTE | 2017-06-12 12:50 | Anesthesia Evaluation PreOp ---
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 HX Other Medical History: Denies Any Significant HX Anesthesia History: No Prior Anesthetic Complications, Past Anesthesia ( Exploratory Lap, Tubal) : No Alcohol Use: none, heavy (3 "tall boys" daily) Drug use: none Medications and Allergies Albuterol Neb [Proventil Neb] 2.5 mg IH Q4H PRN 12/22/15 [History] Albuterol Sulfate [Proair Hfa] 2 puff IH Q4H PRN 12/22/15 [History] Fluticasone/Salmeterol [Advair 250-50 Diskus] 1 puff IH BID 12/22/15 [History] Tiotropium [Spiriva] 18 mcg IH 0700 12/22/15 [History] Lactobacillus [Culturelle] 1 each PO BID #6 cap.sprink 07/26/16 [Rx] Loratadine [Claritin] 10 mg PO DAILY PRN #0 07/26/16 [Rx] 3 Allergy/AdvReac Type Severity Reaction Status Date / Time NSAIDS (Non-Steroidal AdvReac unknown Verified 06/08/17 13:26 Anti-Inflamma - Meds/Allergy Pre-op Review Medications Reviewed: Yes Allergies Reviewed: Yes Beta Blockers on Current Med List: No Anesthesia Results - Labs 06/12/17 04:08 06/12/17 04:08 Anesthesia Exam Vital Signs/O2 Sat, Most Current Temp Pulse Resp BP Pulse Ox 97.8 F 94 16 134/81 91 06/12/17 11:46 06/12/17 11:46 06/12/17 11:46 06/12/17 11:46 06/12/17 11:46 NPO (# of Hours): > 8 Hrs Pain Scale: 0 Pain Scale Used: Numeric (1 - 10) - HEENT Pupil (Motor): Pupils equal, EOMI Mallampati: II Teeth: Edentulous Oral Opening: Greater than 3 - 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
--- NOTE | 2017-06-12 13:48 | Internal Med Progress Note ---
Date of Encounter: 06/12/17 Time of Encounter: 13:45 - Assessment and plan (1) Aspiration pneumonia Current Visit: Yes Status: Acute Assessment and plan: Continue with Unasyn. Nebs treatments. Wean down oxygen as tolerated. Negative urine strep and Legionella. Sputum cultures negative Qualifiers: Aspiration pneumonia type: unspecified Laterality: right Lung location: unspecified part of lung Qualified Code(s): J69.0 - Pneumonitis due to inhalation of food and vomit (2) Dysphagia Current Visit: Yes Status: Acute Assessment and plan: This is causing weight loss. She has other symptoms including dry eyes dry mouth. TSH is normal. Antibodies for Sjogren's syndrome negative. Failed MBS. EGD could not be done yesterday as there was contrast from the MBS. This is planned for today now. Speech and nutrition are consulted Qualifiers: Dysphagia type: oropharyngeal phase Qualified Code(s): R13.12 - Dysphagia, oropharyngeal phase (3) COPD (chronic obstructive pulmonary disease) Current Visit: No Status: Chronic Assessment and plan: Not an exacerbation. Continue inhalers. Qualifiers: COPD type: unspecified COPD Qualified Code(s): J44.9 - Chronic obstructive pulmonary disease, unspecified (4) Xerostomia Current Visit: Yes Status: Acute Assessment and plan: Symptomatic treatment. (5) Xerophthalmia Current Visit: Yes Status: Acute Assessment and plan: Symptomatic treatment. (6) Tobacco abuse Current Visit: No Status: Chronic Assessment and plan: Nicotine patch (7) Severe protein-calorie malnutrition Current Visit: Yes Status: Acute Assessment and plan: Diabetes consulted. (8) DVT prophylaxis Current Visit: Yes Status: Acute Assessment and plan: Heparin subcutaneous - Subjective Interval history: Patient was seen and examined. No acute events. She failed barium swallow study with plans for EGD today.. Continues to feel lethargic. Afebrile. She was admitted with multiple complaints. She is being treated for aspiration pneumonia here. Has been losing weight and has been troubled with swallowing difficulties causing weight loss. She does mention dry eyes, dry mouth, and fatigue. - Constitutional Vitals: Temp Pulse Resp BP Pulse Ox 97.8 F 94 16 134/81 91 06/12/17 11:46 06/12/17 11:46 06/12/17 11:46 06/12/17 11:46 06/12/17 11:46 Internal Medicine: Result - Labs CBC & Chem 7: 06/12/17 04:08 06/12/17 04:08 Labs: Short CBC 06/12/17 Range/Units 04:08 WBC 4.1 L (4.3-11.1) K/mcL Hgb 16.3 H (11.5-15.4) g/dL Hct 49.1 H (35.3-44.9) % Plt Count 200 (140-400) K/mcL Neutrophils # 2.0 (1.6-8.9) K/mcL BMP 06/12/17 04:08 Sodium 139 Potassium 4.3 Chloride 102 Carbon Dioxide 34 H BUN 4 L Creatinine 0.44 L Glucose 103 Calcium 9.2 Consult Discharge Plan - Plan Referrals: Natalya Vasquez MD [Primary Care Provider] -
[2017-06-13] MEDS: Ampicillin/Sulbactam 3,000 MG in 0.9 % Sodium Chloride Mini Bag 100 ML IVPB SCH ×5 (00:45→23:34)
[2017-06-13] MEDS: *HR* LORazepam 2 MG/ML VIAL IVP PRN ×2 (00:45→22:11)
[2017-06-13 04:56] LABS: Basophils % 0.4 %; Eosinophils # 0.1 K/mcL (0.0-0.6); Eosinophils % 1.8 %; Hematocrit 43.9 % (35.3-44.9); Hemoglobin 14.8 g/dL (11.5-15.4); Immature Granulocytes % 0.6 % (0-4); Lymphocytes # 1.4 K/mcL (0.6-4.6); Lymphocytes % 25.3 %; Mean Corpuscular HGB Conc 33.7 g/dL (31.6-35.5); Mean Corpuscular Hemoglobin 31.6 pg (28.0-33.3); Mean Corpuscular Volume 93.8 fL (83.0-100.0); Mean Platelet Volume 9.2 fL (9.4-12.4); Monocytes # 0.4 K/mcL (0.0-1.3); Monocytes % 7.6 %; Neutrophils # 3.5 K/mcL (1.6-8.9); Platelet Count 199 K/mcL (140-400); Red Blood Count 4.68 M/mcL (3.82-4.97); Red Cell Distribution Width 11.9 % (11.5-14.5); Segmented Neutrophils % 64.3 %
[2017-06-13 05:38] LABS: BUN/Creatinine Ratio 9 (6-26); Blood Urea Nitrogen 3 mg/dL (8-23); Calcium 8.7 mg/dL (8.6-10.3); Carbon Dioxide 33 mEq/L (23-29); Chloride 102 mEq/L (98-107); Glucose 92 mg/dL (70-105); Osmolality,Calculated 284 (280-300); Potassium 3.2 mEq/L (3.5-5.1); Sodium 139 mEq/L (136-145); eGFR For African Americans > 60 (> 60); eGFR For Non-African Americans > 60 (> 60)
[2017-06-13] MEDS: 0.9 % Sodium Chloride 1,000 ML IVC SCH ×2 (06:24→18:05)
[2017-06-13] MEDS: *HR* Heparin 5,000 UNIT/ML VIAL SQ SCH ×2 (06:27→18:14)
[2017-06-13] MEDS: Nicotine 21 MG PATCH.TD24 TD SCH (08:51)
--- NOTE | 2017-06-13 13:23 | Anesthesia Evaluation PreOp ---
Date of Encounter: 06/13/17 Time of Encounter: 13:21 - Past History Planned Operation: PEG Cardiac History: Denies any Significant Hx, Angina (reports occasional chest discomfort at night 2-3x/month that comes/goes without any precipitating factors. 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: Denies Any Significant HX Other Medical History: Denies Any Significant HX Anesthesia History: No Prior Anesthetic Complications, Past Anesthesia (Tubal, Expl Lap) Alcohol Use: none, heavy (3 "tall boys" daily) Drug use: none Medications and Allergies Albuterol Neb [Proventil Neb] 2.5 mg IH Q4H PRN 12/22/15 [History] Albuterol Sulfate [Proair Hfa] 2 puff IH Q4H PRN 12/22/15 [History] Fluticasone/Salmeterol [Advair 250-50 Diskus] 1 puff IH BID 12/22/15 [History] Tiotropium [Spiriva] 18 mcg IH 0700 12/22/15 [History] Lactobacillus [Culturelle] 1 each PO BID #6 cap.sprink 07/26/16 [Rx] Loratadine [Claritin] 10 mg PO DAILY PRN #0 07/26/16 [Rx] 3 Allergy/AdvReac Type Severity Reaction Status Date / Time NSAIDS (Non-Steroidal AdvReac unknown Verified 06/08/17 13:26 Anti-Inflamma - Meds/Allergy Pre-op Review Medications Reviewed: Yes Allergies Reviewed: Yes Beta Blockers on Current Med List: No Anesthesia Results - Labs 06/13/17 04:20 06/13/17 04:20 Laboratory Results WBC 5.4 K/mcL (4.3-11.1) 06/13/17 04:20 RBC 4.68 M/mcL (3.82-4.97) 06/13/17 04:20 Hgb 14.8 g/dL (11.5-15.4) D 06/13/17 04:20 Hct 43.9 % (35.3-44.9) 06/13/17 04:20 MCV 93.8 fL (83.0-100.0) 06/13/17 04:20 MCH 31.6 pg (28.0-33.3) 06/13/17 04:20 MCHC 33.7 g/dL (31.6-35.5) 06/13/17 04:20 RDW 11.9 % (11.5-14.5) 06/13/17 04:20 Plt Count 199 K/mcL (140-400) 06/13/17 04:20 MPV 9.2 fL (9.4-12.4) L 06/13/17 04:20 Immature Gran % 0.6 % (0-4) 06/13/17 04:20 Seg Neutrophils % 64.3 % 06/13/17 04:20 Lymphocytes % 25.3 % 06/13/17 04:20 Monocytes % 7.6 % 06/13/17 04:20 Eosinophils % 1.8 % 06/13/17 04:20 Basophils % 0.4 % 06/13/17 04:20 Neutrophils # 3.5 K/mcL (1.6-8.9) 06/13/17 04:20 Lymphocytes # 1.4 K/mcL (0.6-4.6) 06/13/17 04:20 Monocytes # 0.4 K/mcL (0.0-1.3) 06/13/17 04:20 Eosinophils # 0.1 K/mcL (0.0-0.6) 06/13/17 04:20 Basophils # 0.0 K/mcL (0.0-0.2) 06/13/17 04:20 Reactive Lymphocytes Present (Not Present) A 06/12/17 04:08 Platelet Estimate Normal (Normal) 06/12/17 04:08 Sodium 139 mEq/L (136-145) 06/13/17 04:20 Potassium 3.2 mEq/L (3.5-5.1) L 06/13/17 04:20 Chloride 102 mEq/L (98-107) 06/13/17 04:20 Carbon Dioxide 33 mEq/L (23-29) H 06/13/17 04:20 BUN 3 mg/dL (8-23) L 06/13/17 04:20 Creatinine 0.33 mg/dL (0.60-1.20) L 06/13/17 04:20 Est GFR ( Amer) > 60 (> 60) 06/13/17 04:20 Est GFR (Non-Af Amer) > 60 (> 60) 06/13/17 04:20 BUN/Creatinine Ratio 9 (6-26) 06/13/17 04:20 Glucose 92 mg/dL (70-105) 06/13/17 04:20 POC Glucose 99 (58-89) H 06/13/17 07:05 Calculated Osmolality 284 (280-300) 06/13/17 04:20 Calcium 8.7 mg/dL (8.6-10.3) 06/13/17 04:20 Phosphorus 3.7 mg/dL (2.7-4.5) 06/08/17 12:00 Magnesium 1.7 mg/dL (1.6-2.6) 06/12/17 04:08 Total Bilirubin 0.7 mg/dL (0.3-1.0) 06/09/17 04:27 Direct Bilirubin 0.2 mg/dL (0.0-0.2) 06/08/17 12:00 Indirect Bilirubin 0.6 mg/dL (0.0-1.2) 06/08/17 12:00 AST 12 Units/L (13-39) L 06/09/17 04:27 ALT 12 Units/L (7-52) 06/09/17 04:27 Alkaline Phosphatase 52 Units/L (34-104) 06/09/17 04:27 Troponin I 0.03 ng/mL (< 0.04) 06/08/17 12:00 Serum Total Protein 5.7 g/dL (6.4-8.9) L 06/09/17 04:27 Albumin 3.1 g/dL (3.5-5.7) L 06/09/17 04:27 Globulin 2.6 g/dL (2.4-3.5) 06/09/17 04:27 Albumin/Globulin Ratio 1.2 (1.1-2.2) 06/09/17 04:27 Prealbumin 8.6 mg/dL (17.0-34.0) L 06/08/17 12:00 Lipase 3 Units/L (11-82) L 06/08/17 12:00 TSH 1.113 mcIU/mL (0.340-5.600) 06/08/17 12:00 Urine Color Yellow (Yellow) 06/08/17 14:45 Urine Clarity Clear (Clear) 06/08/17 14:45 Urine pH 7.0 pH Units (5.0-8.0) 06/08/17 14:45 Ur Specific [place] 1.021 (1.010-1.025) 06/08/17 14:45 Urine Protein Negative mg/dL (Neg-Trace) 06/08/17 14:45 Urine Glucose (UA) Normal mg/dL (Normal) 06/08/17 14:45 Urine Ketones Negative mg/dL (Negative) 06/08/17 14:45 Urine Blood Negative (Negative) 06/08/17 14:45 Urine Nitrite Negative (Negative) 06/08/17 14:45 Urine Bilirubin Negative (Negative) 06/08/17 14:45 Urine Urobilinogen Normal mg/dL (Normal) 06/08/17 14:45 Ur Leukocyte Esterase Negative (Negative) 06/08/17 14:45 Ur Culture Indicated? NO (NO) 06/08/17 14:45 Rheumatoid Factor 14 IU/mL (Less than 14) H 06/09/17 04:27 SS-A/Ro 52 kDa Ab 2 AU/mL (0-40) 06/09/17 04:27 SS-A Ro 60 kDa Ab 0 AU/mL (0-40) 06/09/17 04:27 SS-B/La Antibody 1 AU/mL (0-40) 06/09/17 04:27 Impressions Abdomen/Pelvis CT 06/08/17 12:05 IMPRESSION: 1. No acute abdominopelvic process demonstrated 2. Cholelithiasis 3. Distention of the urinary bladder should be correlated with any history of difficulty voiding D/ / Oscar Mc MD / Oscar Mc MD Interpreting Provider: Oscar Mc MD Soft Tissue Neck CT 06/08/17 12:05 IMPRESSION: No acute abnormality of the soft tissue structures of the neck. D/ / 06/08/2017 14:42:13 Gonzales Munoz MD / trip Interpreting Provider: Gonzales Munoz MD Chest CTA 06/08/17 12:09 IMPRESSION: No evidence of acute pulmonary embolism. Patchy airspace disease in the right middle and lower lobes consistent with pneumonia. There is opacification of right lower lobe airways, indicating mucous plugging or possibly aspiration. Right hilar and subcarinal adenopathy, progressed from 2017 may be reactive. Near complete interval clearing of previously demonstrated right upper lobe consolidation. D/ / Luke Hinton MD / Luke Hinton MD Interpreting Provider: Luke Hinton MD Videofluoroscopic Swallow 06/11/17 17:07 IMPRESSION: 1. Deep penetration without evidence of aspiration. Please see separate speech pathology report for full discussion of findings and recommendations. D/ / 06/11/2017 09:30:39 Danie Felipe MD / cristiano Interpreting Provider: Danie Felipe MD - Imaging EKG: image reviewed (EKG dated 06/08/2017 - 105bpm ST. SINUS TACHYCARDIA LOW QRS VOLTAGE IN EXTREMITY LEADS [QRS DEFLECTION < 0.5 mV IN LIMB LEADS] SEPTAL MYOCARDIAL INFARCTION [40+ ms Q WAVE IN V1/V2], PROBABLY OLD Electronically Signed On 06-10-2017 9:03:28 EST by Enrique Desir DO) Anesthesia Exam Vital Signs Temp Pulse Resp BP Pulse Ox 06/13/17 11:10 97.6 F 83 18 134/85 98 06/13/17 07:09 97.7 F 86 18 137/82 99 06/13/17 04:30 98.8 F 84 18 134/86 100 06/13/17 00:53 97.6 F 86 16 138/85 98 06/12/17 19:39 97.9 F 80 16 134/83 98 06/12/17 16:10 98.0 F 85 16 135/84 99 Intake and Output 06/12/17 06/13/1706/13/18 23:59 07:59 15:59 Intake Total 1100 / 1100 200 / 200 100 / 100 Output Total 200 / 200 150 / 150 Balance 900 / 900 200 / 200 -50 / -50 Intake: IV Fluids 1100 / 1100 200 / 200 100 / 100 0.9 % Sodium Chloride 1,000 ML 1000 / 1000 @ 100 mls/hr IVC .Q10H [facility] Rx#: [id number] Unasyn 3,000 MG In 0.9 % Sodium 100 / 100 200 / 200 Chloride (Mini-Bag +) 100 ML @ 200 mls/hr IVPB Q6HR [facility] Rx#: [id number] Potassium Chloride 10 mEq/100mL 100 / 100 10 meq In 100 ml @ 100 mls/hr IVPB Q1H [facility] Rx#:[id number] Output: Urine 200 / 200 150 / 150 Other: Meal NPO NPO Percent of Meal Consumed 0% 0% # Voids 1 # Urine Diapers 1 Weight 43.1 kg Blood Glucose* 94 99 84 Patient Weight 06/13/17 23:59 Weight 43.1 kg Height: 5'3" Weight: 95# BMI = 17 NPO (# of Hours): Mn[place] - HEENT Pupil (Motor): Pupils equal, EOMI Mallampati: II Teeth: Edentulous Oral Opening: Greater than 3 - BIOLOGY TUTOR LOC: Oriented BIOLOGY TUTOR Motor: Normal RUE, Normal LUE, Normal RLE, Normal LLE, Normal Face BIOLOGY TUTOR Sensory: Normal: RUE, LUE, RLE, LLE, Face - Cardiac Rhythm: Regular Murmur: None - Pulmonary Breath Sounds: bilateral Clear Respiratory Effort: Symmetrical Anesthesia Assess/Plan ASA Score: 3 (Failure to thrive, Smoker, COPD, EtOH) Modified Shakila Scale for Level of Consciousness: Cooperative, oriented, and tranquil Anesthetic Plan: MAC Monitoring Plan: Standard Monitors Recovery Plan: Other Anes Supervising Prov Stmt: Pt seen/evaluated, R&B Discussed, questions answered and consent obtained. Eugenie Serrano MD
[2017-06-13] MEDS ORDERED: Propofol 500 MG/50 ML INFUS..BTL ONE (14:08)
[2017-06-13] MEDS ORDERED: Lidocaine -MPF 2% 2 ML VIAL ONE (14:08)
[2017-06-13] MEDS ORDERED: Tetracaine/Benzocaine/Butamben 200MG/SPRAY (100SPY/BOT) MM ONE (14:26)
--- NOTE | 2017-06-13 15:58 | Internal Med Progress Note ---
Date of Encounter: 06/13/17 Time of Encounter: 14:45 - Assessment and plan (1) Pneumonia Current Visit: Yes Status: Acute Assessment and plan: Presented with dysphagia, weight loss, noted to have mild leukocytosis. CT angiogram chest showed right middle and lower lobe patchy opacities along with mucus plugging suggestive of aspiration. Continue IV Unasyn for possible aspiration pneumonia. Aspiration precautions. Received PEG tube placement today. Continue supplemental oxygen and supportive care. Sputum culture with no significant growth. Urine Legionella and strep pneumoniae antigen negative. Qualifiers: Pneumonia type: aspiration pneumonia Aspiration pneumonia type: unspecified Laterality: right Lung location: lower lobe of lung Qualified Code(s): J69.0 - Pneumonitis due to inhalation of food and vomit (2) Tobacco abuse Current Visit: Yes Status: Chronic (3) COPD (chronic obstructive pulmonary disease) Current Visit: Yes Status: Chronic Assessment and plan: Does not appear to be in acute exacerbation. Continue when necessary bronchodilators and supplemental oxygen. Qualifiers: COPD type: unspecified COPD Qualified Code(s): J44.9 - Chronic obstructive pulmonary disease, unspecified (4) Dysphagia Current Visit: Yes Status: Acute Assessment and plan: Patient failed bedside swallow evaluation. Modified barium swallow showed no aspiration, deep penetration, large amount of vallecular residue, aspiration into nasal cavity; GI consulted, patient underwent EGD today, showed normal esophagus and stomach, nonbleeding cratered duodenal ulcer, received externally removable PEG tube; Fountain Worker on board to initiate tube feeding; free water tonight; aspiration precautions, supportive care. Qualifiers: Dysphagia type: oropharyngeal phase Qualified Code(s): R13.12 - Dysphagia, oropharyngeal phase (5) Protein calorie malnutrition Current Visit: Yes Status: Chronic Assessment and plan: Secondary to dysphagia and poor oral intake. Qualifiers: Protein-calorie malnutrition severity: severe Qualified Code(s): E43 - Unspecified severe protein-calorie malnutrition - Subjective Interval history: Returned from PEG tube placement. Reports pain at the site of PEG tube placement. Noted to have a moist cough. No chest pain, fever, chills, difficulty breathing. - Constitutional Vitals: Temp Pulse Resp BP Pulse Ox 97.6 F 82 18 146/90 100 06/13/17 14:00 06/13/17 15:31 06/13/17 15:31 06/13/17 15:31 06/13/17 15:31 General appearance: Present: cachectic, A&O X 3 (Chronically ill) - Respiratory Respiratory exam: Present: CTAB (Coarse breath sounds bilaterally). Absent: accessory muscle use, rales, rhonchi, wheezes - Cardiovascular Cardiovascular exam: Present: RRR, +S1, +S2. Absent: diastolic murmur, gallop, rubs, systolic murmur - GI/Abdominal GI/Abdominal exam: Present: normal bowel sounds, soft (PEG tube in place in left upper abdomen, no bleeding), no peritoneal signs. Absent: distended, tenderness - Extremities Exam Extremities exam: Present: full ROM, warm, radial pulses palpable and symmetrical. Absent: calf tenderness, cyanotic, pedal edema Internal Medicine: Result - Labs CBC & Chem 7: 06/13/17 04:20 06/13/17 04:20 Labs: Short CBC 06/13/17 Range/Units 04:20 WBC 5.4 (4.3-11.1) K/mcL Hgb 14.8 D (11.5-15.4) g/dL Hct 43.9 (35.3-44.9) % Plt Count 199 (140-400) K/mcL Neutrophils # 3.5 (1.6-8.9) K/mcL BMP 06/13/17 04:20 Sodium 139 Potassium 3.2 L Chloride 102 Carbon Dioxide 33 H BUN 3 L Creatinine 0.33 L Glucose 92 Calcium 8.7 - Impressions Impressions Videofluoroscopic Swallow 06/11/17 17:07 IMPRESSION: 1. Deep penetration without evidence of aspiration. Please see separate speech pathology report for full discussion of findings and recommendations. D/ / 06/11/2017 09:30:39 Danie Felipe MD / cristiano Interpreting Provider: Danie Felipe MD Consult Discharge Plan - Plan Referrals: Natalya Vasquez MD [Primary Care Provider] -
[2017-06-13] MEDS: OxyCODONE CONC 5 MG/0.25 ML ORAL.SYG PO PRN (23:46)
[2017-06-14] MEDS: Ampicillin/Sulbactam 3,000 MG in 0.9 % Sodium Chloride Mini Bag 100 ML IVPB SCH ×5 (06:03→23:50)
[2017-06-14] MEDS: *HR* Heparin 5,000 UNIT/ML VIAL SQ SCH ×2 (06:06→17:55)
[2017-06-14] MEDS: 0.9 % Sodium Chloride 1,000 ML IVC SCH (07:55)
[2017-06-14] MEDS: Nicotine 21 MG PATCH.TD24 TD SCH (07:56)
[2017-06-14 09:00] LABS: Basophils # 0.1 K/mcL (0.0-0.2); Basophils % 0.8 %; Eosinophils # 0.2 K/mcL (0.0-0.6); Eosinophils % 2.3 %; Hematocrit 47.8 % (35.3-44.9); Immature Granulocytes % 0.8 % (0-4); Lymphocytes # 1.2 K/mcL (0.6-4.6); Lymphocytes % 18.6 %; Mean Corpuscular HGB Conc 33.5 g/dL (31.6-35.5); Mean Corpuscular Hemoglobin 31.5 pg (28.0-33.3); Mean Corpuscular Volume 94.1 fL (83.0-100.0); Mean Platelet Volume 9.4 fL (9.4-12.4); Monocytes # 0.4 K/mcL (0.0-1.3); Monocytes % 5.6 %; Neutrophils # 4.8 K/mcL (1.6-8.9); Nucleated Red Blood Cells 0.3 /100 WBC (0); Platelet Count 220 K/mcL (140-400); Red Blood Count 5.08 M/mcL (3.82-4.97); Red Cell Distribution Width 11.9 % (11.5-14.5); Segmented Neutrophils % 71.9 %
[2017-06-14 09:26] LABS: Potassium 4.2 mEq/L (3.5-5.1)
[2017-06-14 09:30] LABS: BUN/Creatinine Ratio 10 (6-26); Blood Urea Nitrogen 4 mg/dL (8-23); Calcium 8.8 mg/dL (8.6-10.3); Carbon Dioxide 27 mEq/L (23-29); Chloride 101 mEq/L (98-107); Glucose 69 mg/dL (70-105); Magnesium 1.6 mg/dL (1.6-2.6); Osmolality,Calculated 279 (280-300); Sodium 137 mEq/L (136-145); eGFR For African Americans > 60 (> 60); eGFR For Non-African Americans > 60 (> 60)
--- NOTE | 2017-06-14 11:31 | Event Note ---
<Colt Farrar - Last Filed: 06/14/17 11:27> Date of Encounter: 06/14/17 Time of Encounter: 11:15 PEG tube site checked. PEG tube moves in/out and spins without difficulty. <Ann Jama - Last Filed: 06/14/17 14:49> Date of Encounter: 06/14/17 Time of Encounter: 14:15 Patient seen at the bedside PEG tube site checked. No exudate or discharge. Impression: Dysphagia status post PEG placement. Patient has been started on PEG tube feeds and she is tolerating them well. Rec; patient will need to continue speach therapy treatment to help with her oropharyngeal dysphagia
[2017-06-14] MEDS: Budesonide/Formoterol 80/4.5 MDI IH SCH (13:03)
[2017-06-14] MEDS: *HR* Morphine 2 MG/ML SYRINGE IVP PRN ×2 (13:26→20:22)
--- NOTE | 2017-06-14 13:57 | Internal Med Progress Note ---
Date of Encounter: 06/14/17 Time of Encounter: 13:57 - Assessment and plan (1) Dysphagia Current Visit: Yes Status: Acute Assessment and plan: Patient failed bedside swallow evaluation. Modified barium swallow showed no aspiration, deep penetration, large amount of vallecular residue, aspiration into nasal cavity; GI consulted, patient underwent EGD, showed normal esophagus and stomach, nonbleeding cratered duodenal ulcer, received externally removable PEG tube; Veneer Jointer Helper on board, started tube feeding and free water; hold IV hydration. aspiration precautions, supportive care. Physical and occupational therapy; to continue speech therapy as outpatient; Qualifiers: Dysphagia type: oropharyngeal phase Qualified Code(s): R13.12 - Dysphagia, oropharyngeal phase (2) Pneumonia Current Visit: Yes Status: Acute Assessment and plan: Presented with dysphagia, weight loss, noted to have mild leukocytosis. CT angiogram chest showed right middle and lower lobe patchy opacities along with mucus plugging suggestive of aspiration. Continue IV Unasyn- day 5, for possible aspiration pneumonia. Aspiration precautions. Continue supplemental oxygen and supportive care. Sputum culture with no significant growth. Urine Legionella and strep pneumoniae antigen negative. Qualifiers: Pneumonia type: aspiration pneumonia Aspiration pneumonia type: unspecified Laterality: right Lung location: lower lobe of lung Qualified Code(s): J69.0 - Pneumonitis due to inhalation of food and vomit (3) Tobacco abuse Current Visit: Yes Status: Chronic (4) COPD (chronic obstructive pulmonary disease) Current Visit: Yes Status: Chronic Assessment and plan: Does not appear to be in acute exacerbation. Continue when necessary bronchodilators and supplemental oxygen. Qualifiers: COPD type: unspecified COPD Qualified Code(s): J44.9 - Chronic obstructive pulmonary disease, unspecified (5) Protein calorie malnutrition Current Visit: Yes Status: Chronic Assessment and plan: plan as above; Qualifiers: Protein-calorie malnutrition severity: severe Qualified Code(s): E43 - Unspecified severe protein-calorie malnutrition - Subjective Interval history: Feels better; improved abdominal pain; no nausea, vomiting, diarrhea; started on tube feeds today; - Constitutional Vitals: Temp Pulse Resp BP Pulse Ox 98.3 F 81 16 138/86 96 06/14/17 11:17 06/14/17 11:17 06/14/17 13:10 06/14/17 11:17 06/14/17 13:10 General appearance: Present: cachectic, A&O X 3, answers questions appropriately - Respiratory Respiratory exam: Present: CTAB. Absent: accessory muscle use, rales, rhonchi, wheezes - Cardiovascular Cardiovascular exam: Present: RRR, +S1, +S2. Absent: diastolic murmur, gallop, rubs, systolic murmur - GI/Abdominal GI/Abdominal exam: Present: normal bowel sounds, soft (PEG in place), no peritoneal signs. Absent: distended, tenderness Internal Medicine: Result - Labs CBC & Chem 7: 06/14/17 08:24 06/14/17 08:24 Labs: Short CBC 06/14/17 Range/Units 08:24 WBC 6.6 (4.3-11.1) K/mcL Hgb 16.0 H (11.5-15.4) g/dL Hct 47.8 H (35.3-44.9) % Plt Count 220 (140-400) K/mcL Neutrophils # 4.8 (1.6-8.9) K/mcL BMP 06/14/17 08:24 Sodium 137 Potassium 4.2 Chloride 101 Carbon Dioxide 27 BUN 4 L Creatinine 0.39 L Glucose 69 L Calcium 8.8 Consult Discharge Plan - Plan Referrals: Natalya Vasquez MD [Primary Care Provider] -
[2017-06-14] MEDS ORDERED: Saliva Stimulant 100ml BOTTLE PO PRN (16:39)
[2017-06-14] MEDS: *HR* LORazepam 2 MG/ML VIAL IVP PRN (20:22)
[2017-06-15] MEDS: Budesonide/Formoterol 80/4.5 MDI IH SCH ×3 (05:41→21:27)
[2017-06-15] MEDS: *HR* Heparin 5,000 UNIT/ML VIAL SQ SCH ×2 (06:14→16:32)
[2017-06-15] MEDS: Ampicillin/Sulbactam 3,000 MG in 0.9 % Sodium Chloride Mini Bag 100 ML IVPB SCH ×3 (06:15→16:30)
[2017-06-15] MEDS: Tiotropium 18 MCG inhalation IH SCH (08:03)
[2017-06-15] MEDS: Nicotine 21 MG PATCH.TD24 TD SCH (08:17)
[2017-06-15] MEDS: *HR* LORazepam 2 MG/ML VIAL IVP PRN ×2 (08:18→21:16)
[2017-06-15] MEDS: OxyCODONE CONC 5 MG/0.25 ML ORAL.SYG PO PRN (08:37)
[2017-06-15] MEDS ORDERED: Saliva Stimulant 100ml BOTTLE PO SCH (13:45)
[2017-06-15] MEDS ORDERED: Ondansetron ODT 4 MG TAB.RAPDIS GTUBE PRN (16:00)
[2017-06-15] MEDS ORDERED: Docusate Oral Soln 100 MG/10 ML UDC PO PRN (16:02)
[2017-06-15] MEDS ORDERED: Methocarbamol 500 MG TABLET GTUBE PRN (16:03)
[2017-06-15] MEDS ORDERED: Saliva Stimulant 100ml BOTTLE PO PRN (16:19)
--- NOTE | 2017-06-15 17:46 | Internal Med Progress Note ---
Date of Encounter: 06/15/17 Time of Encounter: 13:30 - Assessment and plan (1) Dysphagia Current Visit: Yes Status: Acute Assessment and plan: Patient failed bedside swallow evaluation. Modified barium swallow showed no aspiration, deep penetration, large amount of vallecular residue, aspiration into nasal cavity; GI consulted, patient underwent EGD, showed normal esophagus and stomach, nonbleeding cratered duodenal ulcer, received externally removable PEG tube; Car Pick Up Driver on board, continue tube feeding and free water, increase rate as tolerated, now at 40cc/hr; aspiration precautions, supportive care. Physical and occupational therapy pending; to continue speech therapy as outpatient; Medically stable for discharge; Qualifiers: Dysphagia type: oropharyngeal phase Qualified Code(s): R13.12 - Dysphagia, oropharyngeal phase (2) Pneumonia Current Visit: Yes Status: Acute Assessment and plan: Improving clinically. CT angiogram chest showed right middle and lower lobe patchy opacities along with mucus plugging suggestive of aspiration. Continue IV Unasyn- day 6, for possible aspiration pneumonia. Aspiration precautions. Continue supplemental oxygen and supportive care. Sputum culture with no significant growth. Urine Legionella and strep pneumoniae antigen negative. Qualifiers: Pneumonia type: aspiration pneumonia Aspiration pneumonia type: unspecified Laterality: right Lung location: lower lobe of lung Qualified Code(s): J69.0 - Pneumonitis due to inhalation of food and vomit (3) Tobacco abuse Current Visit: Yes Status: Chronic Assessment and plan: Nicotine patch (4) COPD (chronic obstructive pulmonary disease) Current Visit: Yes Status: Chronic Assessment and plan: Does not appear to be in acute exacerbation. Continue when necessary bronchodilators and supplemental oxygen. Qualifiers: COPD type: unspecified COPD Qualified Code(s): J44.9 - Chronic obstructive pulmonary disease, unspecified (5) Protein calorie malnutrition Current Visit: Yes Status: Chronic Qualifiers: Protein-calorie malnutrition severity: severe Qualified Code(s): E43 - Unspecified severe protein-calorie malnutrition - Subjective Interval history: Feels better; has generalized weakness; tolerates tube feeds well; reports bowel movements; PT pending; no nausea, vomiting, improving abdominal pain; - Constitutional Vitals: Temp Pulse Resp BP Pulse Ox 98.3 F 90 16 145/91 93 06/15/17 17:40 06/15/17 17:40 06/15/17 17:40 06/15/17 17:40 06/15/17 17:40 General appearance: Present: cachectic, A&O X 3, answers questions appropriately - Respiratory Respiratory exam: Present: CTAB (B/L anterolaterally). Absent: accessory muscle use, rales, rhonchi, wheezes - Cardiovascular Cardiovascular exam: Present: RRR, +S1, +S2. Absent: diastolic murmur, gallop, rubs, systolic murmur - GI/Abdominal GI/Abdominal exam: Present: normal bowel sounds, soft (PEG tube in place, site clean and dry), no peritoneal signs. Absent: distended, tenderness - Extremities Exam Extremities exam: Present: full ROM, warm, radial pulses palpable and symmetrical. Absent: calf tenderness, cyanotic, pedal edema Internal Medicine: Result - Labs CBC & Chem 7: 06/14/17 08:24 06/16/17 03:33 Consult Discharge Plan - Plan Referrals: Natalya Vasquez MD [Primary Care Provider] -
[2017-06-16] MEDS: Ampicillin/Sulbactam 3,000 MG in 0.9 % Sodium Chloride Mini Bag 100 ML IVPB SCH ×5 (00:14→23:45)
[2017-06-16] MEDS: OxyCODONE CONC 5 MG/0.25 ML ORAL.SYG GTUBE PRN ×3 (00:21→19:56)
[2017-06-16 04:43] LABS: BUN/Creatinine Ratio 13 (6-26); Blood Urea Nitrogen 6 mg/dL (8-23); Calcium 9.1 mg/dL (8.6-10.3); Carbon Dioxide 38 mEq/L (23-29); Chloride 101 mEq/L (98-107); Glucose 109 mg/dL (70-105); Osmolality,Calculated 292 (280-300); Phosphorous 4.5 mg/dL (2.7-4.5); Potassium 4.6 mEq/L (3.5-5.1); Sodium 142 mEq/L (136-145); eGFR For African Americans > 60 (> 60); eGFR For Non-African Americans > 60 (> 60)
[2017-06-16] MEDS: *HR* Heparin 5,000 UNIT/ML VIAL SQ SCH ×2 (04:50→19:01)
[2017-06-16] MEDS: *HR* LORazepam 2 MG/ML VIAL IVP PRN ×2 (09:16→19:57)
[2017-06-16] MEDS: Nicotine 21 MG PATCH.TD24 TD SCH (09:22)
[2017-06-16] MEDS: Budesonide/Formoterol 80/4.5 MDI IH SCH ×2 (11:11→21:44)
[2017-06-16] MEDS: Tiotropium 18 MCG inhalation IH SCH (11:11)
--- NOTE | 2017-06-16 17:07 | Internal Med Progress Note ---
Date of Encounter: 06/16/17 Time of Encounter: 17:07 - Assessment and plan (1) Dysphagia Current Visit: Yes Status: Acute Assessment and plan: Patient failed bedside swallow evaluation. Modified barium swallow showed no aspiration, deep penetration, large amount of vallecular residue, aspiration into nasal cavity; GI consulted, patient underwent EGD, showed normal esophagus and stomach, nonbleeding cratered duodenal ulcer, received externally removable PEG tube; Journeyman Welder on board, continue tube feeding and free water; aspiration precautions , supportive care. Physical and occupational therapy evaluation noted- recommend ECF placement; to continue speech therapy as outpatient; Medically stable for discharge; awaiting delinquency prevention social worker evaluation and placement; Qualifiers: Dysphagia type: oropharyngeal phase Qualified Code(s): R13.12 - Dysphagia, oropharyngeal phase (2) Pneumonia Current Visit: Yes Status: Acute Assessment and plan: Improving clinically. CT angiogram chest showed right middle and lower lobe patchy opacities along with mucus plugging suggestive of aspiration. Continue IV Unasyn- day 7, for possible aspiration pneumonia. Aspiration precautions. Continue supplemental oxygen and supportive care. Sputum culture with no significant growth. Urine Legionella and strep pneumoniae antigen negative. Qualifiers: Pneumonia type: aspiration pneumonia Aspiration pneumonia type: unspecified Laterality: right Lung location: lower lobe of lung Qualified Code(s): J69.0 - Pneumonitis due to inhalation of food and vomit (3) Tobacco abuse Current Visit: Yes Status: Chronic (4) COPD (chronic obstructive pulmonary disease) Current Visit: Yes Status: Chronic Assessment and plan: Does not appear to be in acute exacerbation. Continue when necessary bronchodilators and supplemental oxygen. Qualifiers: COPD type: unspecified COPD Qualified Code(s): J44.9 - Chronic obstructive pulmonary disease, unspecified (5) Protein calorie malnutrition Current Visit: Yes Status: Chronic Qualifiers: Protein-calorie malnutrition severity: severe Qualified Code(s): E43 - Unspecified severe protein-calorie malnutrition - Subjective Interval history: Feels better; has generalized weakness; tolerates tube feeds well; reports dry mouth; no nausea, vomiting; no bowel movements yet; - Constitutional Vitals: Temp Pulse Resp BP Pulse Ox 98 F 81 16 144/89 93 06/16/17 14:57 06/16/17 14:57 06/16/17 14:57 06/16/17 14:57 06/16/17 14:57 General appearance: Present: cachectic, A&O X 3, answers questions appropriately - Respiratory Respiratory exam: Present: CTAB. Absent: accessory muscle use, rales, rhonchi, wheezes - Cardiovascular Cardiovascular exam: Present: RRR, +S1, +S2. Absent: diastolic murmur, gallop, rubs, systolic murmur - GI/Abdominal GI/Abdominal exam: Present: normal bowel sounds, soft (PEG in place, no bleeding ), no peritoneal signs. Absent: distended, tenderness Internal Medicine: Result - Labs CBC & Chem 7: 06/14/17 08:24 06/16/17 03:33 Labs: BMP 06/16/17 03:33 Sodium 142 Potassium 4.6 Chloride 101 Carbon Dioxide 38 H BUN 6 L Creatinine 0.48 L Glucose 109 H Calcium 9.1 Consult Discharge Plan - Plan Referrals: Natalya Vasquez MD [Primary Care Provider] -
[2017-06-17] MEDS: Ampicillin/Sulbactam 3,000 MG in 0.9 % Sodium Chloride Mini Bag 100 ML IVPB SCH ×2 (05:14→12:40)
[2017-06-17] MEDS: *HR* Heparin 5,000 UNIT/ML VIAL SQ SCH ×2 (05:14→17:45)
[2017-06-17] MEDS: Tiotropium 18 MCG inhalation IH SCH (07:54)
[2017-06-17] MEDS: Budesonide/Formoterol 80/4.5 MDI IH SCH ×2 (07:54→21:44)
[2017-06-17] MEDS: Nicotine 21 MG PATCH.TD24 TD SCH (10:04)
[2017-06-17] MEDS: *HR* LORazepam 2 MG/ML VIAL IVP PRN ×2 (10:05→21:24)
[2017-06-17] MEDS: OxyCODONE CONC 5 MG/0.25 ML ORAL.SYG GTUBE PRN ×2 (10:05→21:23)
[2017-06-17] MEDS: Lacri-Lube 3.5 GM TUBE BOTH EYES PRN ×2 (16:29→21:24)
--- NOTE | 2017-06-17 17:18 | Internal Med Progress Note ---
Date of Encounter: 06/17/17 Time of Encounter: 12:00 - Assessment and plan (1) Dysphagia Current Visit: Yes Status: Acute Assessment and plan: Patient failed bedside swallow evaluation. Modified barium swallow showed no aspiration, deep penetration, large amount of vallecular residue, aspiration into nasal cavity; GI consulted, patient underwent EGD, showed normal esophagus and stomach, nonbleeding cratered duodenal ulcer, received externally removable PEG tube; Senior Technical Support Analyst on board, continue tube feeding and free water; aspiration precautions , supportive care. Will start Senna plus and PRN Miralax for constipation; Physical and occupational therapy evaluation noted- recommend ECF placement; to continue speech therapy as outpatient; Medically stable for discharge; awaiting social work therapist evaluation and placement; Qualifiers: Dysphagia type: oropharyngeal phase Qualified Code(s): R13.12 - Dysphagia, oropharyngeal phase (2) Pneumonia Current Visit: Yes Status: Acute Assessment and plan: Improving clinically. CT angiogram chest showed right middle and lower lobe patchy opacities along with mucus plugging suggestive of aspiration. Continue IV Unasyn- day 8, for possible aspiration pneumonia. Completed 8 days, will discontinue antibiotics after today's dose. Aspiration precautions. Continue supplemental oxygen and supportive care. Sputum culture with no significant growth. Urine Legionella and strep pneumoniae antigen negative. Qualifiers: Pneumonia type: aspiration pneumonia Aspiration pneumonia type: unspecified Laterality: right Lung location: lower lobe of lung Qualified Code(s): J69.0 - Pneumonitis due to inhalation of food and vomit (3) Tobacco abuse Current Visit: Yes Status: Chronic (4) COPD (chronic obstructive pulmonary disease) Current Visit: Yes Status: Chronic Qualifiers: COPD type: unspecified COPD Qualified Code(s): J44.9 - Chronic obstructive pulmonary disease, unspecified (5) Protein calorie malnutrition Current Visit: Yes Status: Chronic Qualifiers: Protein-calorie malnutrition severity: severe Qualified Code(s): E43 - Unspecified severe protein-calorie malnutrition - Subjective Interval history: Feels better; has generalized weakness; tolerates tube feeds well; no nausea, vomiting; no bowel movements yet; - Constitutional Vitals: Temp Pulse Resp BP Pulse Ox 98.2 F 97 16 144/94 93 06/17/17 15:32 06/17/17 15:32 06/17/17 15:32 06/17/17 15:32 06/17/17 15:32 General appearance: Present: cachectic, A&O X 3, answers questions appropriately - Respiratory Respiratory exam: Present: CTAB. Absent: accessory muscle use, rales, rhonchi, wheezes - Cardiovascular Cardiovascular exam: Present: RRR, +S1, +S2. Absent: diastolic murmur, gallop, rubs, systolic murmur - GI/Abdominal GI/Abdominal exam: Present: normal bowel sounds, soft, no peritoneal signs. Absent: distended, tenderness Internal Medicine: Result - Labs CBC & Chem 7: 06/14/17 08:24 06/16/17 03:33 Consult Discharge Plan - Plan Referrals: Natalya Vasquez MD [Primary Care Provider] -
[2017-06-17] MEDS: Sennosides/Docusate Sodium TABLET PO SCH (21:23)
[2017-06-18] MEDS: *HR* Heparin 5,000 UNIT/ML VIAL SQ SCH ×2 (04:51→17:24)
[2017-06-18] MEDS: Nicotine 21 MG PATCH.TD24 TD SCH (08:01)
[2017-06-18] MEDS: Sennosides/Docusate Sodium TABLET PO SCH ×2 (08:03→21:46)
[2017-06-18] MEDS: OxyCODONE CONC 5 MG/0.25 ML ORAL.SYG GTUBE PRN ×2 (08:05→17:25)
[2017-06-18] MEDS: *HR* LORazepam 2 MG/ML VIAL IVP PRN ×2 (08:18→21:45)
[2017-06-18] MEDS ORDERED: *HR* OxyCODONE Immed Rel 5 MG TABLET PO PRN (10:00)
[2017-06-18] MEDS: Budesonide/Formoterol 80/4.5 MDI IH SCH ×2 (10:39→22:00)
[2017-06-18] MEDS: Tiotropium 18 MCG inhalation IH SCH (10:44)
[2017-06-18] MEDS: Lacri-Lube 3.5 GM TUBE BOTH EYES PRN (11:59)
--- NOTE | 2017-06-18 17:39 | Discharge Summary ---
Date of Encounter: 06/18/17 Time of Encounter: 15:00 - Discharge Diagnosis (1) Dysphagia Priority: Primary Status: Acute Qualifiers: Dysphagia type: oropharyngeal phase Qualified Code(s): R13.12 - Dysphagia, oropharyngeal phase (2) Pneumonia Priority: Primary Status: Acute Qualifiers: Pneumonia type: aspiration pneumonia Aspiration pneumonia type: unspecified Laterality: right Lung location: lower lobe of lung Qualified Code(s): J69.0 - Pneumonitis due to inhalation of food and vomit (3) Tobacco abuse Priority: Secondary Status: Chronic (4) COPD (chronic obstructive pulmonary disease) Priority: Secondary Status: Chronic Qualifiers: COPD type: unspecified COPD Qualified Code(s): J44.9 - Chronic obstructive pulmonary disease, unspecified (5) Protein calorie malnutrition Priority: Primary Status: Chronic Qualifiers: Protein-calorie malnutrition severity: severe Qualified Code(s): E43 - Unspecified severe protein-calorie malnutrition - Discharge Medications Prescriptions: OxyCODONE CONC 5 mg GTUBE Q6HR PRN 10 Days oral.syg PRN Reason: Moderate to Severe Pain (4-10) Polyvinyl Alcohol [Artificial Tears] 15 ml OP Q4H 10 Days drops Home Medications: Albuterol Neb [Proventil Neb] 2.5 mg IH Q4H PRN 12/22/15 [History] Albuterol Sulfate [Proair Hfa] 2 puff IH Q4H PRN 12/22/15 [History] Fluticasone/Salmeterol [Advair 250-50 Diskus] 1 puff IH BID 12/22/15 [History] Tiotropium [Spiriva] 18 mcg IH 0700 12/22/15 [History] Lactobacillus [Culturelle] 1 each PO BID #6 cap.sprink 07/26/16 [Rx] Loratadine [Claritin] 10 mg PO DAILY PRN #0 07/26/16 [Rx] Acetaminophen [Tylenol] 650 mg PO Q6HR PRN tablet 06/18/17 [Rx] Ipratropium/Albuterol Neb [Duoneb] 3 ml IH [id number] PRN inhsol 06/18/17 [Rx] Metoprolol [Lopressor] 12.5 mg GTUBE BID tablet 06/18/17 [Rx] Nicotine Patch [Nicoderm] 21 mg TD DAILY patch.td24 06/18/17 [Rx] OxyCODONE CONC 5 mg GTUBE Q6HR PRN 10 Days oral.syg 06/18/17 [Rx] Polyethylene Glycol 3350 [MiraLAX] 17 gm PO DAILY PRN powd.pack 06/18/17 [Rx] Polyvinyl Alcohol [Artificial Tears] 15 ml OP Q4H 10 Days drops 06/18/17 [Rx] Saliva Stimulant [Biotene Moisturizing Rinse] 1 spray PO Q2H PRN bottle [Rx] Sennosides/Docusate Sodium [Senna Plus] 1 each PO BID tablet 06/18/17 [Rx] Allergies/Adverse Reactions: 3 Allergy/AdvReac Type Severity Reaction Status Date / Time NSAIDS (Non-Steroidal AdvReac unknown Verified 06/08/17 13:26 Anti-Inflamma Date of admission: 06/09/17 06:06 Primary care physician: Natalya Vasquez Consults: 06/09/17 10:22 Consult to Speech Therapy [CONS] Routine Comment: Evaluate, develop and implement POC Reason for Consult: swallow eval Call Completed: No 06/14/17 13:55 Consult to Occupational Therapy [CONS] Routine Comment: Evaluate, develop and implement POC Reason for Consult: Generalized weakness, PEG placement Consult to Physical Therapy [CONS] Routine Comment: Evaluate, develop and implement POC Reason for Consult: Generalized weakness, PEG placement 06/16/17 16:54 Consult to [place] [CONS] Routine Reason for SW Consult: ECF placement Discharging clinician: Martha Andrews Anticipated date of discharge: 06/18/17 - Patient Status Disposition: Transfer SNF Condition: Fair Functional capacity at discharge: uses cane/walker Overall status at discharge: patient is progressing back to baseline - Discharge Instructions Follow Up With: Natalya Vasquez MD [Primary Care Provider] - Forms: Inpatient Work/School Release Additional Instructions: F/up with PCP in 1-2 weeks - Diet and Activity Activity: as per physical therapy Diet: other (tube feeds with Jevity 1.2) Hospital course: Ms. Lindo is a 67 year old female with the above medical problems, who was admitted with dysphagia, shortness of breath. CT angiogram chest showed right middle and lower lobe patchy opacities along with mucus plugging suggestive of aspiration. She was started on IV Unasyn for possible aspiration Pneumonia. Blood cultures remained negative. Due to dysphagia, PASTING INSPECTOR was consulted, Patient failed bedside swallow evaluation. Modified barium swallow showed no aspiration, deep penetration, large amount of vallecular residue, aspiration into nasal cavity- oropharyngeal dysphagia; GI consulted, patient underwent EGD, showed normal esophagus and stomach, nonbleeding cratered duodenal ulcer, received externally removable PEG tube; Aviation Safety Technician has been on board and patient was started on continuous tube feeds with Jevity 1.5 and free water. PT/OT evaluation recommend ECF placement and patient is currently medically stable for this transfer, pending rehab placement. She will also work with speech therapy as an outpatient to improve dysphagia. - Time Spent with Patient Total time spent providing and/or coordinating discharge services: Greater than 30 minutes (45 min) - Constitutional Vitals: Temp Pulse Resp BP Pulse Ox 97.8 F 97 15 158/85 92 06/18/17 16:44 06/18/17 16:44 06/18/17 16:44 06/18/17 16:44 06/18/17 16:44 General appearance: Present: cachectic, A&O X 3, answers questions appropriately - Respiratory Respiratory exam: Present: CTAB. Absent: accessory muscle use, rales, rhonchi, wheezes
--- NOTE | 2017-06-18 17:49 | Physician Discharge Referral ---
ExtendedCare Referral Info Transfer To: [place] Provider in Charge: Martha Andrews Provider in Charge after Transfer: PCP Institutional Level of Care: Skilled - Diagnosis (1) Dysphagia Priority: Primary Status: Acute (2) Pneumonia Priority: Primary Status: Acute (3) Tobacco abuse Priority: Secondary Status: Chronic (4) COPD (chronic obstructive pulmonary disease) Priority: Secondary Status: Chronic (5) Protein calorie malnutrition Priority: Primary Status: Chronic Expected Duration of Placement: 3 weeks Prognosis: Fair Aware of Diagnosis: Patient Aware of Prognosis: Patient - Transfer Medications Prescriptions: OxyCODONE CONC 5 mg GTUBE Q6HR PRN 10 Days oral.syg PRN Reason: Moderate to Severe Pain (4-10) Polyvinyl Alcohol [Artificial Tears] 15 ml OP Q4H 10 Days drops Home Medications: Albuterol Neb [Proventil Neb] 2.5 mg IH Q4H PRN 12/22/15 [History] Albuterol Sulfate [Proair Hfa] 2 puff IH Q4H PRN 12/22/15 [History] Fluticasone/Salmeterol [Advair 250-50 Diskus] 1 puff IH BID 12/22/15 [History] Tiotropium [Spiriva] 18 mcg IH 0700 12/22/15 [History] Lactobacillus [Culturelle] 1 each PO BID #6 cap.sprink 07/26/16 [Rx] Loratadine [Claritin] 10 mg PO DAILY PRN #0 07/26/16 [Rx] Acetaminophen [Tylenol] 650 mg PO Q6HR PRN tablet 06/18/17 [Rx] Ipratropium/Albuterol Neb [Duoneb] 3 ml IH [id number] PRN inhsol 06/18/17 [Rx] Metoprolol [Lopressor] 12.5 mg GTUBE BID tablet 06/18/17 [Rx] Nicotine Patch [Nicoderm] 21 mg TD DAILY patch.td24 06/18/17 [Rx] OxyCODONE CONC 5 mg GTUBE Q6HR PRN 10 Days oral.syg 06/18/17 [Rx] Polyethylene Glycol 3350 [MiraLAX] 17 gm PO DAILY PRN powd.pack 06/18/17 [Rx] Polyvinyl Alcohol [Artificial Tears] 15 ml OP Q4H 10 Days drops 06/18/17 [Rx] Saliva Stimulant [Biotene Moisturizing Rinse] 1 spray PO Q2H PRN bottle [Rx] Sennosides/Docusate Sodium [Senna Plus] 1 each PO BID tablet 06/18/17 [Rx] Allergies/Adverse Reactions: 3 Allergy/AdvReac Type Severity Reaction Status Date / Time NSAIDS (Non-Steroidal AdvReac unknown Verified 06/08/17 13:26 Anti-Inflamma - Respiratory Orders Smoking Cessation: Smoking cessation has been advised. For more information, call the [place] Tobacco Quit Line at 7-968-RBZTNOW. - Advance Directives Code Status: Full Code - Rehabiliation Orders Rehab Potential: Fair Rehab Orders: ROM Exercises, Evaluation for Physical Therapy, Evaluation for Occupational Therapy, Evaluation for Speech Therapy - Diet Orders Tube Feedings (type/amount/rate): Jevity 1.5 continuous, at 40cc/hr Free water 150cc Q6hrly CERTIFICATION: I certify that the transfer of the above named patient to an Extended Care Facility is necessary for the continuing treatment of the diagnosis listed. The above information is true and accurate reflection of patient's current condition. Confidential - Redisclosure prohibited without a patient's written consent.
[2017-06-18] MEDS: *HR* OxyCODONE Immed Rel 5 MG TABLET GTUBE PRN (21:47)
[2017-06-19] MEDS: *HR* Heparin 5,000 UNIT/ML VIAL SQ SCH ×2 (06:03→18:16)
[2017-06-19] MEDS: Sennosides/Docusate Sodium TABLET PO SCH ×2 (08:56→20:45)
[2017-06-19] MEDS: Nicotine 21 MG PATCH.TD24 TD SCH (08:56)
[2017-06-19] MEDS: Budesonide/Formoterol 80/4.5 MDI IH SCH ×2 (09:01→21:46)
[2017-06-19] MEDS: Tiotropium 18 MCG inhalation IH SCH (09:01)
[2017-06-19] MEDS: *HR* OxyCODONE Oral Soln 5 MG/5 ML UD.LIQ GTUBE PRN ×2 (09:09→20:45)
[2017-06-19] MEDS: Lacri-Lube 3.5 GM TUBE BOTH EYES PRN ×2 (09:56→22:40)
[2017-06-19] MEDS: *HR* LORazepam 0.5 MG TABLET PO PRN ×2 (09:56→22:36)
--- NOTE | 2017-06-19 15:46 | Internal Med Progress Note ---
Date of Encounter: 06/19/17 Time of Encounter: 10:10 - Assessment and plan (1) Dysphagia Current Visit: Yes Status: Acute Assessment and plan: Patient failed bedside swallow evaluation. Modified barium swallow showed no aspiration, deep penetration, large amount of vallecular residue, aspiration into nasal cavity; GI consulted, patient underwent EGD, showed normal esophagus and stomach, nonbleeding cratered duodenal ulcer, received externally removable PEG tube; Corporate Vp Advertising & Online on board, continue tube feeding and free water; aspiration precautions , supportive care. She denies abdominal pain. Continue stool softener and Miralax prn for constipation; Pt going to [facility] for rehab, continue to monitor. Currently waiting on insurance acceptance. Qualifiers: Dysphagia type: oropharyngeal phase Qualified Code(s): R13.12 - Dysphagia, oropharyngeal phase (2) Pneumonia Current Visit: Yes Status: Acute Assessment and plan: Per CTA chest on 06/08/17, patient had patchy airspace disease, right middle and lower lobes consistent with pneumonia. The patient was treated with Unasyn and Zosyn IV for 8 days. Lungs are clear and diminished throughout. She is in no distress is not requiring supplemental oxygen at this time. Sputum culture with no significant growth, urine Legionella and strep pneumo antigens are negative. Continue aspiration precautions O2 as needed to maintain sats greater than 92%. Qualifiers: Pneumonia type: aspiration pneumonia Aspiration pneumonia type: unspecified Laterality: right Lung location: lower lobe of lung Qualified Code(s): J69.0 - Pneumonitis due to inhalation of food and vomit (3) Severe protein-calorie malnutrition Current Visit: Yes Status: Acute Assessment and plan: He should have a PEG tube placement on 06/13. Continue Jevity 1.5 at 20 mL's per hour, increased by 10 pounds per hour every 12 until goal rate of 40 was achieved. (4) COPD (chronic obstructive pulmonary disease) Current Visit: Yes Status: Chronic Assessment and plan: No acute exacerbation. Lungs are clear and diminished throughout. Patient is on room air. Continue albuterol nebulizers, DuoNeb nebs, Symbicort, and Spiriva. Oxygen as needed to maintain sats greater than 92%. Qualifiers: COPD type: unspecified COPD Qualified Code(s): J44.9 - Chronic obstructive pulmonary disease, unspecified (5) Tobacco abuse Current Visit: Yes Status: Chronic Assessment and plan: Continue nicotine patch. (6) DVT prophylaxis Current Visit: Yes Status: Acute Assessment and plan: Heparin subcutaneous twice a day. - Time Spent With Patient less than 15 minutes - Subjective Interval history: Pt was seen and assessed at bedside at 1010 this a.m. She is alert and awake and states that she is ready to go to the ECF. She states that she is better and breathing more easily. She denies chest pain, sob, n/v, or headache. She is aware that we are waiting on insurance approval prior to sending her to ECF. - Constitutional Vitals: Temp Pulse Resp BP Pulse Ox 98.0 F 77 15 113/78 93 06/19/17 10:27 06/19/17 10:27 06/19/17 10:06/19/17 10:06/19/17 10:27 General appearance: Present: cachectic, cooperative, A&O X 3, pleasant, no acute distress, answers questions appropriately - Head Head exam: Present: atraumatic, normal inspection, normocephalic - Eye Eye exam: Present: normal appearance, conjuntiva pink, sclera anicteric - Neck Neck exam general surgery: Present: normal inspection, supple, trachea midline. Absent: lymphadenopathy, tenderness - Respiratory Respiratory exam: Present: chest wall tenderness, CTAB. Absent: accessory muscle use, rales, respiratory distress, rhonchi, wheezes - Cardiovascular Cardiovascular exam: Present: RRR, +S1, +S2. Absent: diastolic murmur, gallop, rubs, systolic murmur - GI/Abdominal GI/Abdominal exam: Present: normal bowel sounds, soft. Absent: distended, hepatomegaly, tenderness - Extremities Exam Extremities exam: Present: normal capillary refill, normal inspection, warm, radial pulses palpable and symmetrical. Absent: calf tenderness, cyanotic, pedal edema, tenderness - Neurological Exam Neurological exam: Present: alert, oriented X3, no focal deficits, strengths equal and symetr throughout, pronater drift. Absent: facial droop, speech deficit - Skin Skin exam: Present: dry, intact, normal color, warm. Absent: rash Internal Medicine: Result - Labs CBC & Chem 7: 06/14/17 08:24 06/16/17 03:33 Consult Discharge Plan - Plan Additional Instructions: F/up with PCP in 1-2 weeks Referrals: Natalya Vasquez MD [Primary Care Provider] - Prescriptions: OxyCODONE CONC 5 mg GTUBE Q6HR PRN 10 Days oral.syg PRN Reason: Moderate to Severe Pain (4-10) Polyvinyl Alcohol [Artificial Tears] 15 ml OP Q4H 10 Days drops
[2017-06-20] MEDS: *HR* Heparin 5,000 UNIT/ML VIAL SQ SCH ×2 (05:30→15:13)
[2017-06-20] MEDS: Sennosides/Docusate Sodium TABLET PO SCH ×2 (08:47→20:52)
[2017-06-20] MEDS: Lacri-Lube 3.5 GM TUBE BOTH EYES PRN ×2 (08:47→15:14)
[2017-06-20] MEDS: Nicotine 21 MG PATCH.TD24 TD SCH (08:48)
[2017-06-20] MEDS: *HR* OxyCODONE Immed Rel 5 MG TABLET GTUBE PRN (09:00)
[2017-06-20] MEDS: *HR* LORazepam 0.5 MG TABLET PO PRN ×2 (09:00→20:52)
[2017-06-20] MEDS: Budesonide/Formoterol 80/4.5 MDI IH SCH ×2 (11:45→21:42)
[2017-06-20] MEDS: Tiotropium 18 MCG inhalation IH SCH (11:46)
--- NOTE | 2017-06-20 17:29 | Internal Med Progress Note ---
Date of Encounter: 06/20/17 Time of Encounter: 15:10 - Assessment and plan (1) Dysphagia Current Visit: Yes Status: Acute Assessment and plan: Patient failed bedside swallow evaluation. Modified barium swallow showed no aspiration, deep penetration, large amount of vallecular residue, aspiration into nasal cavity; GI consulted, patient underwent EGD, showed normal esophagus and stomach, nonbleeding cratered duodenal ulcer, received externally removable PEG tube, feeding through PEG. Meteorological Observer on board, continue tube feeding and free water; aspiration precautions , supportive care. She denies abdominal pain. Continue stool softener and Miralax prn for constipation; Pt going to [facility] for rehab, continue to monitor. Currently waiting on insurance acceptance. Qualifiers: Dysphagia type: oropharyngeal phase Qualified Code(s): R13.12 - Dysphagia, oropharyngeal phase (2) Pneumonia Current Visit: Yes Status: Acute Assessment and plan: Per CTA chest on 06/08/17, patient had patchy airspace disease, right middle and lower lobes consistent with pneumonia. The patient was treated with Unasyn and Zosyn IV for 8 days, no antibiotics currently. Lungs are clear and diminished throughout. She is in no distress is not requiring supplemental oxygen at this time. Sputum culture with no significant growth, urine Legionella and strep pneumo antigens are negative. Continue aspiration precautions O2 as needed to maintain sats greater than 92%. Qualifiers: Pneumonia type: aspiration pneumonia Aspiration pneumonia type: unspecified Laterality: right Lung location: lower lobe of lung Qualified Code(s): J69.0 - Pneumonitis due to inhalation of food and vomit (3) Severe protein-calorie malnutrition Current Visit: Yes Status: Acute Assessment and plan: Pt has PEG tube. Continue Jevity 1.5 at 20 mL's per hour, increased by 10 pounds per hour every 12 until goal rate of 40 was achieved. (4) COPD (chronic obstructive pulmonary disease) Current Visit: Yes Status: Chronic Assessment and plan: No acute exacerbation. Lungs are clear and diminished throughout. Patient is on room air. Continue albuterol nebulizers, DuoNeb nebs, Symbicort, and Spiriva home doses. Oxygen if needed to maintain sats greater than 92%. Qualifiers: COPD type: unspecified COPD Qualified Code(s): J44.9 - Chronic obstructive pulmonary disease, unspecified (5) Tobacco abuse Current Visit: Yes Status: Chronic Assessment and plan: Pt has a nicotine patch in place. Continue. Rx for ECF. (6) DVT prophylaxis Current Visit: Yes Status: Acute Assessment and plan: Heparin subcutaneous BID. Pt has been [place] [facility] [place]. - Subjective Interval history: Pt was seen and assessed at bedside at 1510 this a.m. She is alert and awake and states that she is ready to go to the ECF and reports marcelino eye burning, no drainage or vision changes. She denies chest pain, sob, n/v, or headache, no abdominal pain, n/v/d, or dizziness. SW has not heard back from ECF regarding accepting pt, pt is aware. - Constitutional Vitals: Temp Pulse Resp BP Pulse Ox 98.3 F 85 17 105/87 91 06/20/17 15:57 06/20/17 15:57 06/20/17 15:57 06/20/17 15:57 06/20/17 15:57 General appearance: Present: cachectic, cooperative, A&O X 3, pleasant, no acute distress, answers questions appropriately - Head Head exam: Present: atraumatic, normal inspection, normocephalic - Eye Eye exam: Present: normal appearance, conjuntiva pink, sclera anicteric - Neck Neck exam general surgery: Present: normal inspection, supple, trachea midline. Absent: lymphadenopathy, tenderness - Respiratory Respiratory exam: Present: decreased breath sounds, CTAB. Absent: accessory muscle use, rales, rhonchi, wheezes - Cardiovascular Cardiovascular exam: Present: RRR, +S1, +S2. Absent: diastolic murmur, gallop, rubs, systolic murmur - GI/Abdominal GI/Abdominal exam: Present: normal bowel sounds, soft, no peritoneal signs. Absent: distended, hepatomegaly, tenderness - Extremities Exam Extremities exam: Present: normal capillary refill, normal inspection, warm, radial pulses palpable and symmetrical. Absent: calf tenderness, cyanotic, pedal edema, tenderness - Neurological Exam Neurological exam: Present: alert, oriented X3, no focal deficits. Absent: motor sensory deficit, facial droop, speech deficit - Skin Skin exam: Present: dry, intact, normal color, warm. Absent: rash Internal Medicine: Result - Labs CBC & Chem 7: 06/14/17 08:24 06/16/17 03:33 Consult Discharge Plan - Plan Additional Instructions: F/up with PCP in 1-2 weeks Referrals: Natalya Vasquez MD [Primary Care Provider] - Prescriptions: OxyCODONE CONC 5 mg GTUBE Q6HR PRN 10 Days oral.syg PRN Reason: Moderate to Severe Pain (4-10) Polyvinyl Alcohol [Artificial Tears] 15 ml OP Q4H 10 Days drops
[2017-06-21] MEDS: Lacri-Lube 3.5 GM TUBE BOTH EYES PRN (04:06)
[2017-06-21] MEDS: *HR* Heparin 5,000 UNIT/ML VIAL SQ SCH ×2 (04:09→17:06)
[2017-06-21] MEDS: Tiotropium 18 MCG inhalation IH SCH (08:05)
[2017-06-21] MEDS: Budesonide/Formoterol 80/4.5 MDI IH SCH ×2 (08:05→22:47)
[2017-06-21] MEDS: Sennosides/Docusate Sodium TABLET PO SCH ×2 (09:13→20:38)
[2017-06-21] MEDS: Nicotine 21 MG PATCH.TD24 TD SCH (09:13)
[2017-06-21] MEDS: *HR* LORazepam 0.5 MG TABLET PO PRN ×2 (09:20→17:07)
--- NOTE | 2017-06-21 15:14 | Discharge Summary ---
Date of Encounter: 06/21/17 Time of Encounter: 09:30 - Discharge Diagnosis (1) Dysphagia Priority: Primary Status: Acute Comments: Continue Jevity and free water via PEG tube. Continue aspiration precautions and supportive care. Her abdomen is soft and nontender, bowel sounds present. Continue stool softener and MiraLAX as needed for constipation. Qualifiers: Dysphagia type: oropharyngeal phase Qualified Code(s): R13.12 - Dysphagia, oropharyngeal phase (2) Pneumonia Priority: Secondary Status: Resolved Comments: Detected on chest CTA. Patient has completed her IV antibiotics. Her lungs are clear and diminished throughout. She is in no respiratory distress and is not requiring supplemental oxygen. Sputum culture, urine Legionella and strep pneumo antigens were negative. Continue aspiration precautions and add O2 and titrate as needed to maintain sats greater than 92%. Qualifiers: Pneumonia type: aspiration pneumonia Aspiration pneumonia type: unspecified Laterality: right Lung location: lower lobe of lung Qualified Code(s): J69.0 - Pneumonitis due to inhalation of food and vomit (3) Severe protein-calorie malnutrition Priority: Secondary Status: Acute Comments: Continue Jevity by PEG. (4) COPD (chronic obstructive pulmonary disease) Priority: Secondary Status: Chronic Comments: Patient no acute exacerbation. Lungs are clear no wheezing or rhonchi, no rales or respiratory distress. Patient is on room air not requiring supplemental oxygen. Continue nebulizers, Symbicort, and Spiriva 02 as needed to maintain sats > 92% Qualifiers: COPD type: unspecified COPD Qualified Code(s): J44.9 - Chronic obstructive pulmonary disease, unspecified (5) Tobacco abuse Priority: Secondary Status: Chronic Comments: Continue nicotine patches. (6) DVT prophylaxis Priority: Secondary Status: Acute Comments: Heparin SQ twice daily, pt is ambulatory in the room. - Discharge Medications Prescriptions: OxyCODONE CONC 5 mg GTUBE Q6HR PRN 10 Days oral.syg PRN Reason: Moderate to Severe Pain (4-10) Polyvinyl Alcohol [Artificial Tears] 15 ml OP Q4H 10 Days drops Home Medications: Albuterol Neb [Proventil Neb] 2.5 mg IH Q4H PRN 12/22/15 [History] Albuterol Sulfate [Proair Hfa] 2 puff IH Q4H PRN 12/22/15 [History] Fluticasone/Salmeterol [Advair 250-50 Diskus] 1 puff IH BID 12/22/15 [History] Tiotropium [Spiriva] 18 mcg IH 0700 12/22/15 [History] Lactobacillus [Culturelle] 1 each PO BID #6 cap.sprink 07/26/16 [Rx] Loratadine [Claritin] 10 mg PO DAILY PRN #0 07/26/16 [Rx] Acetaminophen [Tylenol] 650 mg PO Q6HR PRN tablet 06/18/17 [Rx] Ipratropium/Albuterol Neb [Duoneb] 3 ml IH [id number] PRN inhsol 06/18/17 [Rx] Metoprolol [Lopressor] 12.5 mg GTUBE BID tablet 06/18/17 [Rx] Nicotine Patch [Nicoderm] 21 mg TD DAILY patch.td24 06/18/17 [Rx] OxyCODONE CONC 5 mg GTUBE Q6HR PRN 10 Days oral.syg 06/18/17 [Rx] Polyethylene Glycol 3350 [MiraLAX] 17 gm PO DAILY PRN powd.pack 06/18/17 [Rx] Polyvinyl Alcohol [Artificial Tears] 15 ml OP Q4H 10 Days drops 06/18/17 [Rx] Saliva Stimulant [Biotene Moisturizing Rinse] 1 spray PO Q2H PRN bottle [Rx] Sennosides/Docusate Sodium [Senna Plus] 1 each PO BID tablet 06/18/17 [Rx] Allergies/Adverse Reactions: 3 Allergy/AdvReac Type Severity Reaction Status Date / Time NSAIDS (Non-Steroidal AdvReac unknown Verified 06/08/17 13:26 Anti-Inflamma Date of admission: 06/09/17 06:06 Primary care physician: Natalya Vasquez Consults: 06/09/17 10:22 Consult to Speech Therapy [CONS] Routine Comment: Evaluate, develop and implement POC Reason for Consult: swallow eval Call Completed: No 06/14/17 13:55 Consult to Occupational Therapy [CONS] Routine Comment: Evaluate, develop and implement POC Reason for Consult: Generalized weakness, PEG placement Consult to Physical Therapy [CONS] Routine Comment: Evaluate, develop and implement POC Reason for Consult: Generalized weakness, PEG placement 06/16/17 16:54 Consult to Technology Trainer [CONS] Routine Reason for SW Consult: ECF placement Discharging clinician: Lexi Bell Anticipated date of discharge: 06/21/17 - Patient Status Disposition: Transfer SNF Condition: Good Functional capacity at discharge: independent ambulation Overall status at discharge: patient is progressing back to baseline - Discharge Instructions Follow Up With: Natalya Vasquez MD [Primary Care Provider] - Forms: Inpatient Work/School Release Additional Instructions: F/up with PCP in 1-2 weeks - Diet and Activity Activity: as per physical therapy, increase activity as tolerated Hospital course: Ms. Lindo is a 67 year old female who is admitted with dysphagia, shortness of breath. CTA chest showed right middle and lower lobe patchy opacities along with mucus plugging suggestive of aspiration. Patient was started on IV Unasyn for possible aspiration pneumonia blood cultures remain negative. She had no signs of sepsis throughout the visit. Speech was consulted due to dysphasia, she failed a bedside swallow evaluation. The modified barium swallow showed no aspiration, GI was consultation patient underwent an EGD that showed normal esophagus and stomach, nonbleeding cratered duodenal ulcer and she recently received externally removable PEG tube. Dietitian has been on board and she has been started on Jevity 1.5 with free water. PT and OT have recommended ECF placement for rehabilitation, patient is currently stable and appropriate for discharge. We have been waiting multiple days for [facility] in insurance companies. Per health social work professor, patient will be ready to go either tonight or tomorrow morning. Labs and vitals are also stable and within normal limits. - Time Spent with Patient Total time spent providing and/or coordinating discharge services: - Constitutional Vitals: Temp Pulse Resp BP Pulse Ox 98.4 F 81 17 113/69 94 06/21/17 10:52 06/21/17 10:52 06/21/17 10:52 06/21/17 10:52 06/21/17 10:52 General appearance: Present: cachectic, cooperative, A&O X 3, pleasant, no acute distress, answers questions appropriately - Head Head exam: Present: atraumatic, normal inspection, normocephalic - Eye Eye exam: Present: normal appearance, conjuntiva pink, sclera anicteric - Neck Neck exam general surgery: Present: supple, trachea midline. Absent: lymphadenopathy, tenderness - Respiratory Respiratory exam: Present: CTAB. Absent: accessory muscle use, chest wall tenderness, decreased breath sounds, rales, rhonchi, wheezes - Cardiovascular Cardiovascular exam: Present: RRR, +S1, +S2. Absent: diastolic murmur, gallop, rubs, systolic murmur - GI/Abdominal GI/Abdominal exam: Present: normal bowel sounds, soft, no peritoneal signs. Absent: distended, hepatomegaly, tenderness - Extremities Exam Extremities exam: Present: normal capillary refill, normal inspection, warm, radial pulses palpable and symmetrical. Absent: calf tenderness, cyanotic, pedal edema, tenderness - Neurological Exam Neurological exam: Present: alert, oriented X3, no focal deficits. Absent: facial droop, speech deficit - Skin Skin exam: Present: dry, intact, normal color, warm. Absent: rash
[2017-06-21] MEDS: *HR* OxyCODONE Immed Rel 5 MG TABLET GTUBE PRN (17:07)
[2017-06-22] MEDS: *HR* OxyCODONE Oral Soln 5 MG/5 ML UD.LIQ GTUBE PRN (04:44)
[2017-06-22] MEDS: *HR* Heparin 5,000 UNIT/ML VIAL SQ SCH (04:44)
[2017-06-22 06:56] VITALS: BP 100/70
[2017-06-22] MEDS: Sennosides/Docusate Sodium TABLET PO SCH (08:15)
[2017-06-22] MEDS: Nicotine 21 MG PATCH.TD24 TD SCH (08:15)
[2017-06-22] MEDS: *HR* OxyCODONE Immed Rel 5 MG TABLET GTUBE PRN (08:19)
[2017-06-22] MEDS: Tiotropium 18 MCG inhalation IH SCH (08:40)
[2017-06-22] MEDS: Budesonide/Formoterol 80/4.5 MDI IH SCH (08:40)
--- NOTE | 2017-06-22 10:44 | Internal Med Progress Note ---
Date of Encounter: 06/22/17 Time of Encounter: 09:25 - Assessment and plan (1) Dysphagia Current Visit: Yes Status: Acute Assessment and plan: Patient failed bedside swallow evaluation. Modified barium swallow showed no aspiration, deep penetration, large amount of vallecular residue, aspiration into nasal cavity; GI consulted, patient underwent EGD, showed normal esophagus and stomach, nonbleeding cratered duodenal ulcer, received externally removable PEG tube, feeding through PEG. Hobbies [employer] Crafts Sales Representative on board, continue tube feeding and free water; aspiration precautions , supportive care. She denies abdominal pain. Continue stool softener and Miralax prn for constipation; Pt going to [facility] for rehab, continue to monitor. Currently waiting on insurance acceptance. Qualifiers: Dysphagia type: oropharyngeal phase Qualified Code(s): R13.12 - Dysphagia, oropharyngeal phase (2) Pneumonia Current Visit: Yes Status: Resolved Qualifiers: Pneumonia type: aspiration pneumonia Aspiration pneumonia type: unspecified Laterality: right Lung location: lower lobe of lung Qualified Code(s): J69.0 - Pneumonitis due to inhalation of food and vomit (3) Severe protein-calorie malnutrition Current Visit: Yes Status: Acute (4) COPD (chronic obstructive pulmonary disease) Current Visit: Yes Status: Chronic Qualifiers: COPD type: unspecified COPD Qualified Code(s): J44.9 - Chronic obstructive pulmonary disease, unspecified (5) Tobacco abuse Current Visit: Yes Status: Chronic (6) DVT prophylaxis Current Visit: Yes Status: Acute - Subjective Interval history: Pt was seen and assessed at bedside at 0925 this a.m. She is alert and awake, pleasant and conversive. She denies chest pain, sob, n/v, or headache, no abdominal pain, n/v/d, or dizziness. Pt has been accepted to [facility] and is ready for discharge. - Constitutional Vitals: Temp Pulse Resp BP Pulse Ox 97.8 F 83 16 100/70 93 06/22/17 06:54 06/22/17 06:54 06/22/17 08:43 06/22/17 06:54 06/22/17 08:43 General appearance: Present: cachectic, cooperative, A&O X 3, pleasant, no acute distress, answers questions appropriately - Head Head exam: Present: atraumatic, normal inspection, normocephalic - Eye Eye exam: Present: normal appearance, conjuntiva pink, sclera anicteric - Neck Neck exam general surgery: Present: supple, trachea midline. Absent: lymphadenopathy, tenderness - Respiratory Respiratory exam: Present: decreased breath sounds, CTAB. Absent: accessory muscle use, chest wall tenderness, rales, respiratory distress, rhonchi, wheezes - Cardiovascular Cardiovascular exam: Present: RRR, +S1, +S2. Absent: diastolic murmur, gallop, rubs, systolic murmur - GI/Abdominal GI/Abdominal exam: Present: normal bowel sounds, soft, no peritoneal signs. Absent: distended, hepatomegaly, tenderness - Extremities Exam Extremities exam: Present: normal capillary refill, normal inspection, warm, radial pulses palpable and symmetrical. Absent: calf tenderness, cyanotic, pedal edema, tenderness - Neurological Exam Neurological exam: Present: alert, oriented X3, no focal deficits. Absent: altered, facial droop, speech deficit - Skin Skin exam: Present: dry, intact, normal color, warm. Absent: rash Internal Medicine: Result - Labs CBC & Chem 7: 06/14/17 08:24 06/16/17 03:33 Consult Discharge Plan - Plan Additional Instructions: F/up with PCP in 1-2 weeks Referrals: Natalya Vasquez MD [Primary Care Provider] - Prescriptions: OxyCODONE CONC 5 mg GTUBE Q6HR PRN 10 Days oral.syg PRN Reason: Moderate to Severe Pain (4-10) Polyvinyl Alcohol [Artificial Tears] 15 ml OP Q4H 10 Days drops
== END 2017-06-22 13:00 | DRG 177 ==
LOC: 2ANU 11:15 → EMEROO 11:15 → 2ANU 17:27 → SUATTDRO 06-09 06:06 → 1NENUPED 06-11 09:49 → 3BNU 06-15 17:37
PROVIDERS: ADMIT Hospitalist; ATTEND Internal Medicine

== ENCOUNTER 2017-08-07 07:21 | Inpatient (IN) ==
[2017-08-07] MEDS ORDERED: 0.9 % Sodium Chloride 1,000 ML IVC ONE (07:33)
--- NOTE | 2017-08-07 07:56 | Emergency Department Note ---
Disposition Clinical Impression: Pneumonia Qualifiers: Pneumonia type: due to unspecified organism Laterality: unspecified laterality Lung location: unspecified part of lung Qualified Code(s): J18.9 - Pneumonia, unspecified organism Disposition: Admitted As Inpatient Condition: Fair Referrals: Natalya Vasquez MD [Primary Care Provider] - General Adult HPI - General Stated complaint: fever, "feeding tube infection" Time Seen by Provider: 08/07/17 07:30 Source: patient, family Mode of arrival: private vehicle Limitations: no limitations Nursing Notes Reviewed: Yes Vital Signs Reviewed: Yes - History of Present Illness Pt Subjective Complaint: Fever, weak and achey all over Onset (ago): week(s) (1) Location: other (generalized - "Achy all over") Radiation: non-radiation Pain Scale: 6 Quality: aching Consistency: intermittent Improves with: nothing Worsens with: nothing Associated symptoms: Reports: cough, fever/chills ("Low grade fevers all week." No chills), malaise. Denies: headaches, loss of appetite Treatments Prior to Arrival: none - Related Data Home Medications Medication Instructions Recorded Confirmed Albuterol Neb [Proventil Neb] 2.5 mg IH Q4H PRN 12/22/15 06/08/17 Albuterol Sulfate [Proair Hfa] 2 puff IH Q4H PRN 12/22/15 06/08/17 Fluticasone/Salmeterol [Advair 1 puff IH BID 12/22/15 06/08/17 250-50 Diskus] Tiotropium [Spiriva] 18 mcg IH 0700 12/22/15 06/08/17 LORazepam [Ativan] 0.5 mg GTUBE TID PRN 08/07/17 08/07/17 Loratadine [Claritin] 10 mg GTUBE DAILY PRN 08/07/17 08/07/17 Metoprolol [Lopressor] 25 mg GTUBE BID 08/07/17 08/07/17 Oxycodone HCl [Oxaydo] 5 mg GTUBE Q8H PRN 08/07/17 08/07/17 Polyethylene Glycol 3350 [MiraLAX] 17 gm GTUBE DAILY PRN 08/07/17 08/07/17 Polyvinyl Alcohol [Artificial 1 drop OP Q4H 08/07/17 08/07/17 Tears] Ranitidine HCl [Acid Inner Tube Inserter] 150 mg GTUBE BID 08/07/17 08/07/17 Sennosides/Docusate Sodium [Senna 1 tab GTUBE BID 08/07/17 08/07/17 Plus] Previous Rx's Medication Instructions Recorded Acetaminophen [Tylenol] 650 mg PO Q6HR PRN tablet 06/18/17 Ipratropium/Albuterol Neb [Duoneb] 3 ml IH [id number] PRN inhsol 06/18/17 Nicotine Patch [Nicoderm] 21 mg TD DAILY patch.td24 06/18/17 Allergies Allergy/AdvReac Type Severity Reaction Status Date / Time NSAIDS (Non-Steroidal AdvReac unknown Verified 08/07/17 07:29 Anti-Inflamma All systems ED: reviewed and negative except as stated. Review of Systems: As Per HPI Constitutional: Reports: weakness ("All over"). Denies: fever, chills, night sweats Eyes: Reports: other ("Chronic dry eyes" Patient also states that 2 days ago her eyes looked yellow. Back to normal yesterday). Denies: eye pain, eye discharge, vision change ENT ED: Reports: dysphagia (Chronic, diagnosed in May 2017. "Flap thing in throat not working." per patient). Denies: ear pain, throat pain, congestion Cardiovascular: Denies: chest pain, palpitations, dyspnea on exertion, orthopnea , edema, syncope, paroxysmal nocturnal dyspnea Respiratory: Reports: cough ("More frequent and more phlegm"). Denies: dyspnea , wheezes, hemoptysis, stridor Gastrointestinal: Reports: other ("Feeding tube is a little sore at times"). Denies: abdominal pain, nausea, vomiting, diarrhea, constipation Genitourinary: Denies: urgency, dysuria, frequency, hematuria Musculoskeletal: Reports: myalgia (muscle spasm). Denies: back pain, neck pain , joint swelling, arthralgia Integumentary: Denies: rash, lesions Neurological: Denies: headache, weakness, numbness, paresthesias, confusion, abnormal gait, vertigo Endocrine: Reports: fatigue Hematological/Lymphatic: Denies: easy bleeding, easy bruising, lymphadenopathy Allergic/Immunologic: Denies: facial swelling, urticaria Past Medical History - Past Medical History Attestation: Yes The following information was validated with the patient. 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 Absent: scleral icterus, periorbital swelling - ENT ENT exam: mucous membranes dry - Neck Neck exam: Present: normal inspection, full ROM, trachea midline. Absent: meningismus - Chest Chest inspection: Present: normal inspection, symmetric chest wall rise - Respiratory Respiratory exam: Present: normal lung sounds bilaterally. Absent: respiratory distress, wheezes, stridor, accessory muscle use, prolonged expiratory phase - Cardiovascular Cardiovascular exam: Present: normal rhythm, tachycardia, normal heart sounds. Absent: systolic murmur, diastolic murmur - Abdominal Exam Abdominal exam: Present: soft, Non-Tender, normal bowel sounds, other (PEG tube in LUQ with clean dressing, no erythema, no drainage). Absent: distention, guarding, rebound, rigidity, organomegaly, ascites, mass, pulsatile mass - Extremities Exam Extremities exam: Present: normal inspection, full ROM. Absent: pedal edema, calf tenderness - Neurological Exam Neurological exam: Present: alert, oriented X3, CN II-XII intact - Psychiatric Psychiatric exam: Present: normal affect, normal mood - Skin Skin exam: Present: warm, dry, intact, normal color Course Course Narrative: Patient presents from home with her son for evaluation of generalized malaise, fever, cough and weakness for about a week. She describes fever as high as 102 at home. She has history of dysphagia which was diagnosed in May of this year. She has had aspiration pneumonia, also in May. She had a feeding tube placed and went to a rehabilitation facility. She was discharged on the eighth of this month and did well for a week. She appears uncomfortable but nontoxic. She was initially mildly tachycardic and tachypneic, which may have been partly due to anxiety. Mucous membranes are dry. Neck is supple without meningeal signs. Breath sounds are clear and she has no retractions. Heart rate is mildly tachycardic and rhythm is regular without murmur. Abdomen is soft and nontender. Feeding tube does not appear to have any signs of infection surrounding it. She has no peripheral edema. Extremities are warm and well perfused. EKG shows a sinus tachycardia rate of 101, normal intervals , normal axis, no ST elevation or depression noted. EKG appears unchanged compared to previous from June 08 of this year. Chest x-ray shows retrocardiac infiltrate, most likely consistent with pneumonia. Lactate is normal. White blood cell count is 14.6 with a prevalence of neutrophils. Renal panel and liver function tests are essentially normal with exception of glucose 120. Patient has received IV fluids. Antibiotics have been ordered. Hospitalist has been contacted for admission - Consultations Consultation #1: Case was discussed with Dr. Liao. He states that the patient most likely has aspiration pneumonia not hospital-acquired pneumonia and initially recommended changing the antibiotics. He then suggested that we go ahead with the vancomycin and Zosyn and stated that he would continue with single coverage unasyn once the patient is admitted Vital Signs Temperature 98.7 F 08/07/17 07:26 Pulse Rate 120 08/07/17 07:26 Respiratory Rate 16 08/07/17 07:26 Blood Pressure 133/87 08/07/17 07:26 O2 Sat by Pulse Oximetry 93 08/07/17 07:26 Temperature 98.7 F 08/07/17 07:26 Pulse Rate 107 08/07/17 07:51 Respiratory Rate 22 08/07/17 07:51 Blood Pressure 116/83 08/07/17 07:51 O2 Sat by Pulse Oximetry 96 08/07/17 07:51 Oxygen Delivery Oxygen Delivery Room Air Medical Decision Making - Medical Records Medical records reviewed: Yes I reviewed the patient's medical records. - Lab Data Lab results reviewed: Yes I reviewed the patient's lab results. Lab results narrative: Laboratory Last Values WBC 14.6 K/mcL (4.3-11.1) H 08/07/17 08:00 RBC 4.86 M/mcL (3.82-4.97) 08/07/17 08:00 Hgb 15.2 g/dL (11.5-15.4) 08/07/17 08:00 Hct 45.7 % (35.3-44.9) H 08/07/17 08:00 MCV 94.0 fL (83.0-100.0) 08/07/17 08:00 MCH 31.3 pg (28.0-33.3) 08/07/17 08:00 MCHC 33.3 g/dL (31.6-35.5) 08/07/17 08:00 RDW 11.8 % (11.5-14.5) 08/07/17 08:00 Plt Count 253 K/mcL (140-400) 08/07/17 08:00 MPV 9.8 fL (9.4-12.4) 08/07/17 08:00 Immature Gran % 0.6 % (0-4) 08/07/17 08:00 Seg Neutrophils % 83.9 % 08/07/17 08:00 Lymphocytes % 9.9 % 08/07/17 08:00 Monocytes % 5.3 % 08/07/17 08:00 Eosinophils % 0.1 % 08/07/17 08:00 Basophils % 0.2 % 08/07/17 08:00 Neutrophils # 12.3 K/mcL (1.6-8.9) H 08/07/17 08:00 Lymphocytes # 1.5 K/mcL (0.6-4.6) 08/07/17 08:00 Monocytes # 0.8 K/mcL (0.0-1.3) 08/07/17 08:00 Eosinophils # 0.0 K/mcL (0.0-0.6) 08/07/17 08:00 Basophils # 0.0 K/mcL (0.0-0.2) 08/07/17 08:00 PT 9.8 Seconds (9.4-12.1) 08/07/17 08:00 INR 0.9 08/07/17 08:00 APTT 30.1 Seconds (26.0-36.0) 08/07/17 08:00 Sodium 135 mEq/L (136-145) L 08/07/17 08:00 Potassium 4.4 mEq/L (3.5-5.1) 08/07/17 08:00 Chloride 98 mEq/L (98-107) 08/07/17 08:00 Carbon Dioxide 30 mEq/L (23-29) H 08/07/17 08:00 BUN 13 mg/dL (8-23) 08/07/17 08:00 Creatinine 0.42 mg/dL (0.60-1.20) L 08/07/17 08:00 Est GFR ( Amer) > 60 (> 60) 08/07/17 08:00 Est GFR (Non-Af Amer) > 60 (> 60) 08/07/17 08:00 BUN/Creatinine Ratio 31 (6-26) H 08/07/17 08:00 Glucose 120 mg/dL (70-105) H 08/07/17 08:00 Calculated Osmolality 281 (280-300) 08/07/17 08:00 Lactic Acid 1.8 mmol/L (0.5-2.2) 08/07/17 08:00 Calcium 10.0 mg/dL (8.6-10.3) 08/07/17 08:00 Phosphorus 3.9 mg/dL (2.7-4.5) 08/07/17 08:00 Magnesium 1.9 mg/dL (1.6-2.6) 08/07/17 08:00 Total Bilirubin 0.5 mg/dL (0.3-1.0) 08/07/17 08:00 Direct Bilirubin 0.1 mg/dL (0.0-0.2) 08/07/17 08:00 Indirect Bilirubin 0.4 mg/dL (0.0-1.2) 08/07/17 08:00 AST 21 Units/L (13-39) 08/07/17 08:00 ALT 28 Units/L (7-52) 08/07/17 08:00 Alkaline Phosphatase 72 Units/L (34-104) 08/07/17 08:00 Troponin I < 0.03 ng/mL (< 0.04) 08/07/17 08:00 Serum Total Protein 8.0 g/dL (6.4-8.9) 08/07/17 08:00 Albumin 4.0 g/dL (3.5-5.7) 08/07/17 08:00 Globulin 4.0 g/dL (2.4-3.5) H 08/07/17 08:00 Albumin/Globulin Ratio 1.0 (1.1-2.2) L 08/07/17 08:00 Urine Color Yellow (Yellow) 08/07/17 08:10 Urine Clarity Clear (Clear) 08/07/17 08:10 Urine pH 8.0 pH Units (5.0-8.0) 08/07/17 08:10 Ur Specific [place] 1.014 (1.010-1.025) 08/07/17 08:10 Urine Protein Negative mg/dL (Neg-Trace) 08/07/17 08:10 Urine Glucose (UA) Normal mg/dL (Normal) 08/07/17 08:10 Urine Ketones Negative mg/dL (Negative) 08/07/17 08:10 Urine Blood Negative (Negative) 08/07/17 08:10 Urine Nitrite Negative (Negative) 08/07/17 08:10 Urine Bilirubin Negative (Negative) 08/07/17 08:10 Urine Urobilinogen Normal mg/dL (Normal) 08/07/17 08:10 Ur Leukocyte Esterase Negative (Negative) 08/07/17 08:10 Ur Culture Indicated? NO (NO) 08/07/17 08:10 Result diagrams: 08/07/17 08:00 Lab Results 08/07/17 Range/Units 08:00 WBC 14.6 H (4.3-11.1) K/mcL RBC 4.86 (3.82-4.97) M/mcL Hgb 15.2 (11.5-15.4) g/dL Hct 45.7 H (35.3-44.9) % MCV 94.0 (83.0-100.0) fL MCH 31.3 (28.0-33.3) pg MCHC 33.3 (31.6-35.5) g/dL RDW 11.8 (11.5-14.5) % Plt Count 253 (140-400) K/mcL MPV 9.8 (9.4-12.4) fL Immature Gran % 0.6 (0-4) % Seg Neutrophils % 83.9 % Lymphocytes % 9.9 % Monocytes % 5.3 % Eosinophils % 0.1 % Basophils % 0.2 % Neutrophils # 12.3 H (1.6-8.9) K/mcL Lymphocytes # 1.5 (0.6-4.6) K/mcL Monocytes # 0.8 (0.0-1.3) K/mcL Eosinophils # 0.0 (0.0-0.6) K/mcL Basophils # 0.0 (0.0-0.2) K/mcL - Radiology Data Radiology results reviewed: Yes I reviewed the patient's radiology results. Chest X-Ray 08/07/17 07:48 IMPRESSION: 1. Mild retrocardiac airspace disease, most compatible with pneumonia, better seen on the lateral view. 2. COPD. D/ / Valentino Treviño MD / Valentino Treviño MD Interpreting Provider: Valentino Treviño MD - EKG Data EKG #1 EKG attestation: Yes I reviewed and interpreted this EKG. EKG shows normal: sinus rhythm Rate: tachycardia Rhythm: NSR [place]/QRS: normal When compared to previous EKG there are: no significant changes Interpretation: unchanged when compared to prior tracing (date)
[2017-08-07 08:13] LABS: Basophils % 0.2 %; Eosinophils % 0.1 %; Hematocrit 45.7 % (35.3-44.9); Hemoglobin 15.2 g/dL (11.5-15.4); Immature Granulocytes % 0.6 % (0-4); Lymphocytes # 1.5 K/mcL (0.6-4.6); Lymphocytes % 9.9 %; Mean Corpuscular HGB Conc 33.3 g/dL (31.6-35.5); Mean Corpuscular Hemoglobin 31.3 pg (28.0-33.3); Mean Platelet Volume 9.8 fL (9.4-12.4); Monocytes # 0.8 K/mcL (0.0-1.3); Monocytes % 5.3 %; Neutrophils # 12.3 K/mcL (1.6-8.9); Platelet Count 253 K/mcL (140-400); Red Blood Count 4.86 M/mcL (3.82-4.97); Red Cell Distribution Width 11.8 % (11.5-14.5); Segmented Neutrophils % 83.9 %
[2017-08-07 08:19] LABS: INR 0.9; Prothrombin Time 9.8 Seconds (9.4-12.1)
[2017-08-07 08:22] LABS: Activated Partial Thrombo Time 30.1 Seconds (26.0-36.0)
[2017-08-07 08:23] LABS: Bilirubin,Urine Negative (Negative); Blood,Urine Negative (Negative); Clarity,Urine Clear (Clear); Color,Urine Yellow (Yellow); Glucose,Urine (UA) Normal (Normal); Ketones,Urine Negative (Negative); Leukocyte Esterase,Urine Negative (Negative); Nitrite,Urine Negative (Negative); Protein,Urine Negative (Neg-Trace); Specific Gravity,Urine 1.014 (1.010-1.025); Urobilinogen,Urine Normal (Normal)
[2017-08-07 08:34] LABS: Alanine Aminotransferase 28 Units/L (7-52); Alkaline Phosphatase 72 Units/L (34-104); Aspartate Amino Transferase 21 Units/L (13-39); BUN/Creatinine Ratio 31 (6-26); Bilirubin,Direct 0.1 mg/dL (0.0-0.2); Bilirubin,Indirect 0.4 mg/dL (0.0-1.2); Bilirubin,Total 0.5 mg/dL (0.3-1.0); Blood Urea Nitrogen 13 mg/dL (8-23); Carbon Dioxide 30 mEq/L (23-29); Chloride 98 mEq/L (98-107); Glucose 120 mg/dL (70-105); Magnesium 1.9 mg/dL (1.6-2.6); Osmolality,Calculated 281 (280-300); Potassium 4.4 mEq/L (3.5-5.1); Sodium 135 mEq/L (136-145); eGFR For African Americans > 60 (> 60); eGFR For Non-African Americans > 60 (> 60)
[2017-08-07] MEDS ORDERED: Piperacillin/Tazobactam 4.5 GM in 0.9 % Sodium Chloride Mini Bag 100 ML IVPB ONE (08:55)
[2017-08-07 09:11] LABS: Troponin I < 0.03 ng/mL (< 0.04)
--- NOTE | 2017-08-07 09:27 | Emergency Department Note ---
START Narrative - START START: For this encounter, I have reviewed the PROJECT DESIGN ENGINEER or PA documentation, treatment plan, and medical decision making; and I have had face to face time with this patient. 67 year old female presents wit fever and chills and recent hospitalization. She has a feeding tube that she thought may be infected. She is cachetic appearing female, tachycardiac and tachypnic (+) SIRS criteria. HCAP on CXR. Will admit to mediince with IV ABC And 30m/kg thearpy
[2017-08-07] MEDS ORDERED: Piperacillin/Tazobactam 3.375 GM in 0.9 % Sodium Chloride Mini Bag 100 ML IVPB ONE (09:45)
--- NOTE | 2017-08-07 10:29 | Internal Med History&Physical ---
Date of Encounter: 08/07/17 Time of Encounter: 09:45 Assessment and Plan (1) Aspiration pneumonia Current visit: Yes Status: Suspected Patient presenting with retrocardiac infiltrate. Most likely aspiration related. Patient has been started on broad-spectrum antibiotics since she was hospitalized within the past 3 months. Continue antibiotics. Follow culture results. Moderate risk for complications. Aspiration precautions. Qualifiers: Aspiration pneumonia type: unspecified Laterality: right Lung location: lower lobe of lung Qualified Code(s): J69.0 - Pneumonitis due to inhalation of food and vomit (2) Oropharyngeal dysphagia Current visit: Yes Status: Acute Continue tube feeds. Aspiration precautions. We will consult nutrition to help manage tube feeds. We will also consult speech therapy to reevaluate her dysphagia. (3) COPD (chronic obstructive pulmonary disease) Current visit: Yes Status: Chronic Patient does have COPD.not in respiratory distress at this time. Will continue bronchodilators. Use O2 supplementation if needed. Qualifiers: COPD type: emphysema Emphysema type: other Qualified Code(s): J43.8 - Other emphysema (4) Tobacco abuse Current visit: No Status: Chronic Counseled about cessation. (5) DVT prophylaxis Current visit: Yes Status: Acute With subcutaneous heparin Internal Medicine - H&P: HPI Chief complaint: Fever, pain the PEG tube insertion site Admitted From: Emergency Dept Plans for Post Hospital Care: Home History of present illness: Ms. Lindo is a 67 year old female patient with a history of oropharyngeal dysphagia of - etiology uncertain, on chronic tube feeds, COPD, rheumatoid arthritis presented to the ER with complaints of pain at site of PEG tube insertion. She was also having increased cough and fevers at home over the past week. She denies any discharge or redness around her PEG tube site. She does have chronic cough and is a chronic smoker. She does makes sputum but has not been able to cough up much. She denies any shortness of breath at this time but has been having intermittent shortness of breath mainly related to increased anxiety. Patient was hospitalized here in May and was then discharged to skilled rehabilitation. She was then discharged back home from the skilled rehabilitation. She was previously on Ativan and has not been getting her Ativan recently as her primary care provider did not prescribe it for her. She feels increasingly anxious as a result. She denies any episodes of choking but does feel like something is stuck in her throat all the time. Past Med Surg Social Fam HX - Past Medical History Attestation: Yes The following information was validated with the patient. Source: patient Medical history: COPD, RA, other (dysphagia) Psychiatric history: anxiety - Past Surgical History Surgical History: other - Social History Smoking Status: Current every day smoker Smokeless Tobacco Status: No Alcohol use: none Drug use: none - Family History Mother Adopted: No Family Member Ethnicity: Non- Living Status: Still Living Hx Family Cardiac Disorders: Yes (Unknown) Hx Family Cancer: Yes (Uterine) Hx Family Endocrine Disorder: Yes Father Adopted: No Family Member Ethnicity: Non- Living Status: Hx Family Cardiac Disorders: Yes (Angina) Hx Family GI Disorders: Yes Hx Family Endocrine Disorder: Yes Hx Family Neuromuscular Disorders: Yes (Multiple Sclerosis) Hx Family Neurologic Disorders: Yes Internal Medicine - H&P: Meds Albuterol Neb [Proventil Neb] 2.5 mg IH Q4H PRN 12/22/15 [History] Albuterol Sulfate [Proair Hfa] 2 puff IH Q4H PRN 12/22/15 [History] Fluticasone/Salmeterol [Advair 250-50 Diskus] 1 puff IH BID 12/22/15 [History] Tiotropium [Spiriva] 18 mcg IH 0700 12/22/15 [History] Acetaminophen [Tylenol] 650 mg PO Q6HR PRN tablet 06/18/17 [Rx] Ipratropium/Albuterol Neb [Duoneb] 3 ml IH [id number] PRN inhsol 06/18/17 [Rx] Nicotine Patch [Nicoderm] 21 mg TD DAILY patch.td24 06/18/17 [Rx] LORazepam [Ativan] 0.5 mg GTUBE TID PRN 08/07/17 [History] Loratadine [Claritin] 10 mg GTUBE DAILY PRN 08/07/17 [History] Metoprolol [Lopressor] 25 mg GTUBE BID 08/07/17 [History] Oxycodone HCl [Oxaydo] 5 mg GTUBE Q8H PRN 08/07/17 [History] Polyethylene Glycol 3350 [MiraLAX] 17 gm GTUBE DAILY PRN 08/07/17 [History] Polyvinyl Alcohol [Artificial Tears] 1 drop OP Q4H 08/07/17 [History] Ranitidine HCl [Acid Deburring Machine Operator] 150 mg GTUBE BID 08/07/17 [History] Sennosides/Docusate Sodium [Senna Plus] 1 tab GTUBE BID 08/07/17 [History] 3 Allergy/AdvReac Type Severity Reaction Status Date / Time NSAIDS (Non-Steroidal AdvReac unknown Verified 08/07/17 07:29 Anti-Inflamma All Systems PM: A 10-system review of systems was performed and is negative for pertinent findings except as documented above in the HPI. - Constitutional Constitutional: no chills, no fever(s), no night sweats - EENT Eyes: no change in vision, no discharge, no pain, no photophobia Ears: no ear discharge, no ear pain, no tinnitus Nose, mouth and throat: no dysphagia, no nasal discharge, no neck pain, no sore throat - Cardiovascular Cardiovascular ROS IM: no chest pain, no diaphoresis, no dyspnea, no lightheadedness, no palpitations, no syncope - Respiratory Respiratory: cough, no chest congestion, no excessive phlegm production, no change in phlegm color - Gastrointestinal Gastrointestinal: no abdominal pain, no diarrhea, no hematemesis, no hematochezia, no melena, no nausea, no vomiting - Genitourinary Genitourinary: no change in urinary stream, no dysuria, no flank pain, no hematuria - Musculoskeletal Musculoskeletal ROS IM: no numbness, no tingling - Integumentary Integumentary IM: no rash, no unusual bruising - Neurological Neurological ROS: no confusion, no convulsions, no focal weakness, no numbness, no tingling, no tremor(s) - Hematologic/Lymphatic Hematologic/Lymphatic: no easy bruising - Constitutional Vitals: Temp Pulse Resp BP Pulse Ox 98.7 F 90 20 119/76 94 08/07/17 07:26 08/07/17 10:21 08/07/17 10:21 08/07/17 10:21 08/07/17 10:21 General appearance: Present: cooperative, mild distress, A&O X 3, answers questions appropriately - Respiratory Respiratory exam: Present: prolonged expiratory phase, wheezes. Absent: accessory muscle use, rales, rhonchi - Cardiovascular Cardiovascular exam: Present: RRR, +S1, +S2. Absent: diastolic murmur, gallop, rubs, systolic murmur - GI/Abdominal GI/Abdominal exam: Present: normal bowel sounds, soft, no peritoneal signs. Absent: distended, tenderness Additional comments: PEG tube in place. No erythema or discharge around PEG tube - Extremities Exam Extremities exam: Present: warm, radial pulses palpable and symmetrical. Absent : calf tenderness, cyanotic, pedal edema - Neurological Exam Neurological exam: Present: alert, CN II-XII intact, oriented X3, no focal deficits. Absent: facial droop, speech deficit - Skin Skin exam: Present: dry, intact Internal Med - H&P Results - Labs CBC & Chem 7: 08/07/17 08:00 08/07/17 08:00 Labs: Short CBC 08/07/17 Range/Units 08:00 WBC 14.6 H (4.3-11.1) K/mcL Hgb 15.2 (11.5-15.4) g/dL Hct 45.7 H (35.3-44.9) % Plt Count 253 (140-400) K/mcL Neutrophils # 12.3 H (1.6-8.9) K/mcL BMP 08/07/17 08:00 Sodium 135 L Potassium 4.4 Chloride 98 Carbon Dioxide 30 H BUN 13 Creatinine 0.42 L Glucose 120 H Calcium 10.0 Cardiac Enzymes 08/07/17 Range/Units 08:00 Troponin I < 0.03 (< 0.04) ng/mL Liver Function 08/07/17 Range/Units 08:00 Total Bilirubin 0.5 (0.3-1.0) mg/dL Direct Bilirubin 0.1 (0.0-0.2) mg/dL AST 21 (13-39) Units/L ALT 28 (7-52) Units/L Alkaline Phosphatase 72 (34-104) Units/L Albumin 4.0 (3.5-5.7) g/dL Urine 08/07/17 Range/Units 08:10 Urine Color Yellow (Yellow) Urine Clarity Clear (Clear) Urine pH 8.0 (5.0-8.0) pH Units Ur Specific [place] 1.014 (1.010-1.025) Urine Protein Negative (Neg-Trace) mg/dL Urine Glucose (UA) Normal (Normal) mg/dL - Impressions ITS Impressions Chest X-Ray 08/07/17 07:48 IMPRESSION: 1. Mild retrocardiac airspace disease, most compatible with pneumonia, better seen on the lateral view. 2. COPD. D/ / Valentino Treviño MD / Valentino Treviño MD Interpreting Provider: Valentino Treviño MD
[2017-08-07] MEDS ORDERED: Naloxone 0.4 MG/ML INJ IVP PRN (10:39)
[2017-08-07] MEDS ORDERED: Loratadine 10 MG TABLET GTUBE PRN (10:40)
[2017-08-07] MEDS ORDERED: Vancomycin 0 MG in 0.9 % Sodium Chloride 250 ML IVPB SCH (11:00)
[2017-08-07] MEDS: *HR* OxyCODONE Immed Rel 5 MG TABLET GTUBE PRN (12:08)
[2017-08-07] MEDS: Artificial Tears SOLN 15 ML BOTTLE OP SCH ×3 (12:08→18:00)
[2017-08-07] MEDS: *HR* LORazepam 0.5 MG TABLET GTUBE PRN (16:05)
[2017-08-07] MEDS: Piperacillin/Tazobactam 3.375 GM in 0.9 % Sodium Chloride Mini Bag 100 ML IVPB SCH (16:06)
[2017-08-07] MEDS: *HR* Heparin 5,000 UNIT/ML VIAL SQ SCH (18:00)
--- NOTE | 2017-08-07 18:59 | Electrocardiograph Report ---
[email or web address] [facility] Test Date: 2017-08-07 Pat Name: Denise Lindo Department: 103 Room: 3A45 Gender: F Speech Language Pathologist: HUYEN : 1950 Requested By: Lauren Christian Order Number: [id number] Reading MD: Say Bhardwaj MD Measurements Intervals [place] Rate: 101 P: 70 NV: 156 QRS: 24 QRSD: 76 T: 63 QT: 328 QTc: 386 Interpretive Statements SINUS TACHYCARDIA LOW QRS VOLTAGE IN EXTREMITY LEADS Electronically Signed On 08-07-2017 18:57:58 EDT by Say Bhardwaj MD
[2017-08-07] MEDS: Sennosides/Docusate Sodium TABLET GTUBE SCH (22:28)
[2017-08-07] MEDS ORDERED: Vancomycin 500 MG in 0.9 % Sodium Chloride Mini Bag 100 ML IVPB SCH (22:30)
[2017-08-07] MEDS: Budesonide/Formoterol 80/4.5 MDI IH SCH (22:39)
[2017-08-08] MEDS: Piperacillin/Tazobactam 3.375 GM in 0.9 % Sodium Chloride Mini Bag 100 ML IVPB SCH ×2 (01:04→08:42)
[2017-08-08 05:37] LABS: Basophils % 0.4 %; Eosinophils # 0.1 K/mcL (0.0-0.6); Eosinophils % 1.4 %; Hematocrit 44.9 % (35.3-44.9); Hemoglobin 14.4 g/dL (11.5-15.4); Immature Granulocytes % 0.7 % (0-4); Lymphocytes # 1.8 K/mcL (0.6-4.6); Lymphocytes % 18.4 %; Mean Corpuscular HGB Conc 32.1 g/dL (31.6-35.5); Mean Corpuscular Hemoglobin 30.4 pg (28.0-33.3); Mean Corpuscular Volume 94.9 fL (83.0-100.0); Monocytes # 0.5 K/mcL (0.0-1.3); Neutrophils # 7.3 K/mcL (1.6-8.9); Platelet Count 245 K/mcL (140-400); Red Blood Count 4.73 M/mcL (3.82-4.97); Red Cell Distribution Width 11.8 % (11.5-14.5); Segmented Neutrophils % 74.1 %
[2017-08-08 05:51] LABS: BUN/Creatinine Ratio 29 (6-26); Blood Urea Nitrogen 10 mg/dL (8-23); Calcium 9.5 mg/dL (8.6-10.3); Carbon Dioxide 26 mEq/L (23-29); Chloride 103 mEq/L (98-107); Glucose 113 mg/dL (70-105); Osmolality,Calculated 282 (280-300); Potassium 4.1 mEq/L (3.5-5.1); Sodium 136 mEq/L (136-145); eGFR For African Americans > 60 (> 60); eGFR For Non-African Americans > 60 (> 60)
[2017-08-08] MEDS: *HR* Heparin 5,000 UNIT/ML VIAL SQ SCH ×2 (06:30→18:21)
[2017-08-08] MEDS: Artificial Tears SOLN 15 ML BOTTLE OP SCH ×7 (07:44→23:41)
[2017-08-08] MEDS: Budesonide/Formoterol 80/4.5 MDI IH SCH ×2 (08:05→20:03)
[2017-08-08] MEDS: Tiotropium 18 MCG inhalation IH SCH (08:06)
[2017-08-08] MEDS: Sennosides/Docusate Sodium TABLET GTUBE SCH ×2 (10:03→20:59)
[2017-08-08] MEDS: *HR* OxyCODONE Immed Rel 5 MG TABLET GTUBE PRN ×2 (10:04→21:01)
[2017-08-08] MEDS: Nicotine 21 MG PATCH.TD24 TD SCH (10:05)
[2017-08-08] MEDS ORDERED: Aminoglycoside Consult 1 EACH MC ONE (10:53)
[2017-08-08] MEDS ORDERED: Vancomycin 500 MG in 0.9 % Sodium Chloride Mini Bag 100 ML IVPB SCH (14:00)
--- NOTE | 2017-08-08 15:23 | Internal Med Progress Note ---
Date of Encounter: 08/08/17 Time of Encounter: 15:19 - Assessment and plan (1) Aspiration pneumonia Current Visit: Yes Status: Suspected Assessment and plan: Sepsis secondary to aspiration pneumonia present upon admission secondary to severe dysphagia Stop vancomycin and Zosyn Start Unasyn IV Aspiration precautions, continue tube feeds through PEG tube IV fluids Qualifiers: Aspiration pneumonia type: unspecified Laterality: right Lung location: lower lobe of lung Qualified Code(s): J69.0 - Pneumonitis due to inhalation of food and vomit (2) Duodenal ulcer Current Visit: Yes Status: Acute Assessment and plan: History of duodenal ulcer *Protonix IV (3) Oropharyngeal dysphagia Current Visit: Yes Status: Acute Assessment and plan: Tube feeds through PEG tube Nothing by mouth (4) COPD (chronic obstructive pulmonary disease) Current Visit: Yes Status: Chronic Assessment and plan: No exacerbation Qualifiers: COPD type: emphysema Emphysema type: other Qualified Code(s): J43.8 - Other emphysema (5) Severe protein-calorie malnutrition Current Visit: No Status: Acute (6) Tobacco abuse Current Visit: No Status: Chronic Assessment and plan: Smoking cessation counseling given for 5 minutes, nicotine patch - Subjective Interval history: Coughing up yellowish phlegm, denies any chest pain, no abdominal pain, chokes on food sometimes, denies any dysuria or diarrhea - Constitutional Vitals: Temp Pulse Resp BP Pulse Ox 98.6 F 78 15 136/88 93 08/08/17 11:26 08/08/17 11:26 08/08/17 11:26 08/08/17 11:26 08/08/17 11:26 General appearance: Present: cachectic, cooperative, mild distress, A&O X 3, answers questions appropriately - Head Head exam: Present: atraumatic, normocephalic - Eye Eye exam: Present: PERRL, conjuntiva pink, sclera anicteric Pupils: Present: PERRL - Neck Neck exam general surgery: Present: supple, trachea midline. Absent: lymphadenopathy - Respiratory Respiratory exam: Present: decreased breath sounds (Blunted breath sounds in the left base), CTAB. Absent: accessory muscle use, rales, rhonchi, wheezes - Cardiovascular Cardiovascular exam: Present: RRR, +S1, +S2. Absent: diastolic murmur, gallop, rubs, systolic murmur - GI/Abdominal GI/Abdominal exam: Present: normal bowel sounds, soft, no peritoneal signs. Absent: distended, tenderness Additional comments: PEG tube in place - Extremities Exam Extremities exam: Present: warm, radial pulses palpable and symmetrical. Absent : calf tenderness, cyanotic, pedal edema - Neurological Exam Neurological exam: Present: CN II-XII intact, oriented X3, no focal deficits. Absent: pronater drift, facial droop, speech deficit - Skin Skin exam: Present: dry, intact Internal Medicine: Result - Labs CBC & Chem 7: 08/08/17 04:56 08/08/17 04:56 Labs: Short CBC 08/08/17 Range/Units 04:56 WBC 9.9 (4.3-11.1) K/mcL Hgb 14.4 (11.5-15.4) g/dL Hct 44.9 (35.3-44.9) % Plt Count 245 (140-400) K/mcL Neutrophils # 7.3 (1.6-8.9) K/mcL BMP 08/08/17 04:56 Sodium 136 Potassium 4.1 Chloride 103 Carbon Dioxide 26 BUN 10 Creatinine 0.34 L Glucose 113 H Calcium 9.5 - ABG Interpretation ABG results: PT/INR, D-dimer PT 9.8 Seconds (9.4-12.1) 08/07/17 08:00 - Impressions Impressions Videofluoroscopic Swallow 08/08/17 00:01 IMPRESSION: Aspiration of thin and nectar thick barium. Please see separate speech pathology report for full discussion of findings and recommendations. D/ / 08/08/2017 13:53:50 Gonzales Munoz MD / lgray Interpreting Provider: Gonzales Munoz MD Consult Discharge Plan - Plan Referrals: Natalya Vasquez MD [Primary Care Provider] -
[2017-08-08] MEDS: Pantoprazole 40 MG VIAL IVP SCH (16:03)
[2017-08-08] MEDS: Nystatin SUSP 5 ML UD.LIQ PO SCH ×2 (17:05→20:58)
[2017-08-08] MEDS: *HR* LORazepam 0.5 MG TABLET GTUBE PRN (23:36)
[2017-08-08] MEDS: Ipratropium/Albuterol Neb 3 ML IH PRN (23:47)
[2017-08-09 01:17] LABS: Hematocrit 44.9 % (35.3-44.9); Hemoglobin 14.8 g/dL (11.5-15.4); Mean Corpuscular Hemoglobin 31.1 pg (28.0-33.3); Mean Corpuscular Volume 94.3 fL (83.0-100.0); Mean Platelet Volume 11.3 fL (9.4-12.4); Platelet Count 180 K/mcL (140-400); Red Blood Count 4.76 M/mcL (3.82-4.97); Red Cell Distribution Width 11.7 % (11.5-14.5)
[2017-08-09 01:43] LABS: BUN/Creatinine Ratio 28 (6-26); Blood Urea Nitrogen 12 mg/dL (8-23); Calcium 9.7 mg/dL (8.6-10.3); Carbon Dioxide 28 mEq/L (23-29); Chloride 99 mEq/L (98-107); Glucose 100 mg/dL (70-105); Osmolality,Calculated 276 (280-300); Potassium 4.3 mEq/L (3.5-5.1); Sodium 133 mEq/L (136-145); eGFR For African Americans > 60 (> 60); eGFR For Non-African Americans > 60 (> 60)
[2017-08-09] MEDS: Artificial Tears SOLN 15 ML BOTTLE OP SCH ×6 (04:35→23:33)
[2017-08-09] MEDS: *HR* Heparin 5,000 UNIT/ML VIAL SQ SCH ×2 (05:04→16:39)
[2017-08-09] MEDS: Tiotropium 18 MCG inhalation IH SCH (08:02)
[2017-08-09] MEDS: Ipratropium/Albuterol Neb 3 ML IH PRN ×2 (08:08→15:44)
[2017-08-09] MEDS: Budesonide/Formoterol 80/4.5 MDI IH SCH ×2 (08:08→20:21)
[2017-08-09] MEDS: Nystatin SUSP 5 ML UD.LIQ PO SCH ×4 (09:27→20:10)
[2017-08-09] MEDS: *HR* OxyCODONE Immed Rel 5 MG TABLET GTUBE PRN (09:27)
[2017-08-09] MEDS: Nicotine 21 MG PATCH.TD24 TD SCH (09:28)
[2017-08-09] MEDS: Sennosides/Docusate Sodium TABLET GTUBE SCH ×2 (09:28→20:10)
[2017-08-09] MEDS: Pantoprazole 40 MG VIAL IVP SCH (09:28)
[2017-08-09] MEDS: Ampicillin/Sulbactam 1,500 MG in 0.9 % Sodium Chloride Mini Bag 100 ML IVPB SCH ×3 (12:17→23:33)
--- NOTE | 2017-08-09 14:59 | Internal Med Progress Note ---
Date of Encounter: 08/09/17 Time of Encounter: 14:57 - Assessment and plan (1) Aspiration pneumonia Current Visit: Yes Status: Suspected Assessment and plan: Sepsis secondary to aspiration pneumonia present upon admission secondary to severe dysphagia Stopped vancomycin and Zosyn Start Unasyn IV Aspiration precautions, continue tube feeds through PEG tube IVF Qualifiers: Aspiration pneumonia type: unspecified Laterality: right Lung location: lower lobe of lung Qualified Code(s): J69.0 - Pneumonitis due to inhalation of food and vomit (2) Duodenal ulcer Current Visit: Yes Status: Acute Assessment and plan: History of duodenal ulcer Uses ranitidine through PEG tube (3) Oropharyngeal dysphagia Current Visit: Yes Status: Acute Assessment and plan: Tube feeds through PEG tube Nothing by mouth (4) COPD (chronic obstructive pulmonary disease) Current Visit: Yes Status: Chronic Assessment and plan: No exacerbation Qualifiers: COPD type: emphysema Emphysema type: other Qualified Code(s): J43.8 - Other emphysema (5) Severe protein-calorie malnutrition Current Visit: No Status: Acute (6) Tobacco abuse Current Visit: No Status: Chronic Assessment and plan: Smoking cessation counseling given for 5 minutes, nicotine patch - Subjective Interval history: Feeling weak. Coughing up yellowish phlegm, denies any chest pain, no abdominal pain, chokes on food sometimes, denies any dysuria or diarrhea - Constitutional Vitals: Temp Pulse Resp BP Pulse Ox 98.8 F 82 14 118/71 91 08/09/17 11:47 08/09/17 11:47 08/09/17 11:47 08/09/17 11:47 08/09/17 11:47 General appearance: Present: cachectic, cooperative, mild distress, A&O X 3, answers questions appropriately Exam: - Head Head exam: Present: atraumatic, normocephalic - Eye Eye exam: Present: PERRL, conjuntiva pink, sclera anicteric Pupils: Present: PERRL - Neck Neck exam general surgery: Present: supple, trachea midline. Absent: lymphadenopathy - Respiratory Respiratory exam: Present: decreased breath sounds (Blunted breath sounds in the left base), CTAB. Absent: accessory muscle use, rales, rhonchi, wheezes - Cardiovascular Cardiovascular exam: Present: RRR, +S1, +S2. Absent: diastolic murmur, gallop, rubs, systolic murmur - GI/Abdominal GI/Abdominal exam: Present: normal bowel sounds, soft, no peritoneal signs. Absent: distended, tenderness Additional comments: PEG tube in place - Extremities Exam Extremities exam: Present: warm, radial pulses palpable and symmetrical. Absent : calf tenderness, cyanotic, pedal edema - Neurological Exam Neurological exam: Present: CN II-XII intact, oriented X3, no focal deficits. Absent: pronater drift, facial droop, speech deficit - Skin Skin exam: Present: dry, intact Internal Medicine: Result - Labs CBC & Chem 7: 08/09/17 00:36 08/09/17 00:36 Labs: Short CBC 08/09/17 Range/Units 00:36 WBC 12.7 H (4.3-11.1) K/mcL Hgb 14.8 (11.5-15.4) g/dL Hct 44.9 (35.3-44.9) % Plt Count 180 (140-400) K/mcL BMP 08/09/17 00:36 Sodium 133 L Potassium 4.3 Chloride 99 Carbon Dioxide 28 BUN 12 Creatinine 0.43 L Glucose 100 Calcium 9.7 - ABG Interpretation ABG results: PT/INR, D-dimer PT 9.8 Seconds (9.4-12.1) 08/07/17 08:00 Consult Discharge Plan - Plan Referrals: Natalya Vasquez MD [Primary Care Provider] -
[2017-08-09] MEDS: 0.9 % Sodium Chloride 1,000 ML IVC SCH (16:40)
[2017-08-09] MEDS: *HR* LORazepam 0.5 MG TABLET GTUBE PRN (16:43)
[2017-08-09] MEDS ORDERED: 0.9 % Sodium Chloride Mini Bag 100 ML ONE (23:26)
[2017-08-10] MEDS ORDERED: Acetaminophen IV 500 MG/50 ML INFUS..BTL IVPB ONE (00:40)
[2017-08-10] MEDS ORDERED: MetroNIDAZOLE 500 MG/100 ML 500 MG/100 ML BAG IVPB SCH (03:00)
[2017-08-10] MEDS: Artificial Tears SOLN 15 ML BOTTLE OP SCH ×5 (03:33→21:04)
[2017-08-10] MEDS: Ipratropium/Albuterol Neb 3 ML IH PRN (04:58)
[2017-08-10 05:04] LABS: Hematocrit 39.7 % (35.3-44.9); Hemoglobin 13.5 g/dL (11.5-15.4); Mean Corpuscular Hemoglobin 31.3 pg (28.0-33.3); Mean Corpuscular Volume 92.1 fL (83.0-100.0); Mean Platelet Volume 10.1 fL (9.4-12.4); Platelet Count 249 K/mcL (140-400); Red Blood Count 4.31 M/mcL (3.82-4.97); Red Cell Distribution Width 11.8 % (11.5-14.5)
[2017-08-10 05:12] LABS: Magnesium 1.7 mg/dL (1.6-2.6)
[2017-08-10 05:13] LABS: BUN/Creatinine Ratio 41 (6-26); Blood Urea Nitrogen 14 mg/dL (8-23); Calcium 8.8 mg/dL (8.6-10.3); Carbon Dioxide 26 mEq/L (23-29); Chloride 101 mEq/L (98-107); Glucose 155 mg/dL (70-105); Osmolality,Calculated 282 (280-300); Potassium 3.6 mEq/L (3.5-5.1); Sodium 134 mEq/L (136-145); eGFR For African Americans > 60 (> 60); eGFR For Non-African Americans > 60 (> 60)
[2017-08-10] MEDS: Ampicillin/Sulbactam 1,500 MG in 0.9 % Sodium Chloride Mini Bag 100 ML IVPB SCH (05:19)
[2017-08-10] MEDS: *HR* Heparin 5,000 UNIT/ML VIAL SQ SCH ×2 (05:20→17:13)
[2017-08-10] MEDS: Tiotropium 18 MCG inhalation IH SCH (08:11)
[2017-08-10] MEDS: Budesonide/Formoterol 80/4.5 MDI IH SCH ×2 (08:11→22:28)
[2017-08-10] MEDS: Sennosides/Docusate Sodium TABLET GTUBE SCH (08:29)
[2017-08-10] MEDS: *HR* LORazepam 0.5 MG TABLET GTUBE PRN (08:45)
[2017-08-10] MEDS: *HR* OxyCODONE Immed Rel 5 MG TABLET GTUBE PRN (08:45)
[2017-08-10] MEDS: Nystatin SUSP 5 ML UD.LIQ PO SCH ×4 (08:45→21:04)
[2017-08-10] MEDS: Nicotine 21 MG PATCH.TD24 TD SCH (08:46)
[2017-08-10] MEDS ORDERED: Piperacillin/Tazobactam 3.375 GM in 0.9 % Sodium Chloride Mini Bag 100 ML IVPB SCH (10:10)
--- NOTE | 2017-08-10 10:24 | Internal Med Progress Note ---
Date of Encounter: 08/10/17 Time of Encounter: 10:22 - Assessment and plan (1) Sepsis Current Visit: Yes Status: Acute Assessment and plan: Sepsis secondary to aspiration pneumonia present upon admission worsened by C diff colitis resume Zosyn IV, start oral vancomycin may repeat sputum culture IVF Qualifiers: Sepsis type: sepsis due to unspecified organism Qualified Code(s): A41.9 - Sepsis, unspecified organism (2) C. difficile diarrhea Current Visit: Yes Status: Acute Assessment and plan: vanco stop flagyl (3) Aspiration pneumonia Current Visit: Yes Status: Suspected Assessment and plan: Sepsis secondary to aspiration pneumonia present upon admission secondary to severe dysphagia Resume Zosyn as she did not respond to Unasyn Stopped vancomycin IV Aspiration precautions, continue tube feeds through PEG tube IVF Qualifiers: Aspiration pneumonia type: unspecified Laterality: right Lung location: lower lobe of lung Qualified Code(s): J69.0 - Pneumonitis due to inhalation of food and vomit (4) Duodenal ulcer Current Visit: Yes Status: Acute Assessment and plan: History of duodenal ulcer Uses ranitidine through PEG tube (5) Oropharyngeal dysphagia Current Visit: Yes Status: Acute Assessment and plan: Tube feeds through PEG tube Nothing by mouth (6) COPD (chronic obstructive pulmonary disease) Current Visit: Yes Status: Chronic Assessment and plan: No exacerbation Qualifiers: COPD type: emphysema Emphysema type: other Qualified Code(s): J43.8 - Other emphysema (7) Severe protein-calorie malnutrition Current Visit: No Status: Acute (8) Tobacco abuse Current Visit: No Status: Chronic Assessment and plan: Smoking cessation counseling given for 5 minutes, nicotine patch - Subjective Interval history: Feeling very weak. Feels very SOB. Having diarrhea. Coughing up yellowish phlegm, denied any chest pain, no abdominal pain, chokes on food sometimes, denies any dysuria - Constitutional Vitals: Temp Pulse Resp BP Pulse Ox 99.4 F 103 16 114/67 93 08/10/17 06:55 08/10/17 06:55 08/10/17 06:55 08/10/17 06:55 08/10/17 06:55 General appearance: Present: cachectic, cooperative, mild distress, A&O X 3, answers questions appropriately - Head Head exam: Present: atraumatic, normocephalic - Eye Eye exam: Present: PERRL, conjuntiva pink, sclera anicteric Pupils: Present: PERRL - Neck Neck exam general surgery: Present: supple, trachea midline. Absent: lymphadenopathy - Respiratory Respiratory exam: Present: decreased breath sounds (on the right, upper airway congestion ), CTAB. Absent: accessory muscle use, rales, rhonchi, wheezes - Cardiovascular Cardiovascular exam: Present: RRR, +S1, +S2. Absent: diastolic murmur, gallop, rubs, systolic murmur - GI/Abdominal GI/Abdominal exam: Present: normal bowel sounds, soft, no peritoneal signs. Absent: distended, tenderness Additional comments: PEG tube - Extremities Exam Extremities exam: Present: warm, radial pulses palpable and symmetrical. Absent : calf tenderness, cyanotic, pedal edema - Neurological Exam Neurological exam: Present: CN II-XII intact, oriented X3, no focal deficits. Absent: pronater drift, facial droop, speech deficit - Skin Skin exam: Present: dry, intact Internal Medicine: Result - Labs CBC & Chem 7: 08/10/17 04:20 08/10/17 04:20 Labs: Short CBC 08/10/17 Range/Units 04:20 WBC 21.6 H D (4.3-11.1) K/mcL Hgb 13.5 (11.5-15.4) g/dL Hct 39.7 (35.3-44.9) % Plt Count 249 (140-400) K/mcL [facility] 08/10/17 04:20 Sodium 134 L Potassium 3.6 Chloride 101 Carbon Dioxide 26 BUN 14 Creatinine 0.34 L Glucose 155 H Calcium 8.8 - ABG Interpretation ABG results: PT/INR, D-dimer PT 9.8 Seconds (9.4-12.1) 08/07/17 08:00 - Impressions Impressions Videofluoroscopic Swallow 08/08/17 00:01 IMPRESSION: Aspiration of thin and nectar thick barium. Please see separate speech pathology report for full discussion of findings and recommendations. D/ / 08/08/2017 13:53:50 Gonzales Munoz MD / alla Interpreting Provider: Gonzales Munoz MD Consult Discharge Plan - Plan Referrals: Natalya Vasquez MD [Primary Care Provider] -
--- NOTE | 2017-08-10 10:48 | Gastroenterology Consult Note ---
Date of Encounter: 08/10/17 Time of Encounter: 10:30 - Assessment and plan (1) Dysphagia Current Visit: No Status: Acute Assessment and plan: Continue tube feeding via PEG tube. Qualifiers: Dysphagia type: oropharyngeal phase Qualified Code(s): R13.12 - Dysphagia, oropharyngeal phase (2) C. difficile diarrhea Current Visit: Yes Status: Acute Assessment and plan: Recommend changing IV Flagyl to PO Vancomycin to complete a 10 day course. (3) COPD (chronic obstructive pulmonary disease) Current Visit: Yes Status: Chronic Assessment and plan: Management per primary team. Qualifiers: COPD type: emphysema Emphysema type: other Qualified Code(s): J43.8 - Other emphysema (4) Aspiration pneumonia Current Visit: Yes Status: Suspected Assessment and plan: Management per primary team. Qualifiers: Aspiration pneumonia type: unspecified Laterality: right Lung location: lower lobe of lung Qualified Code(s): J69.0 - Pneumonitis due to inhalation of food and vomit - Time Spent With Patient Total time spent is greater than 50% in coordination of care (as documented) at patient's floor/unit and/or counseling patient: GI History of Present Illness - Data of Consult Patient: known to practice within the last 3 years Consult date: 08/10/17 Requesting Physician: Martha Andrews MD - Consult Narrative Reason for consult: CDiff History of present illness: Ms. Lindo is a 67 year old female with PMHx of oropharyngeal dysphagia of - etiology uncertain, on chronic tube feeds, COPD, rheumatoid arthritis who presented to the ED with complaints of pain at PEG tube insertion site. She denies any discharge or redness around her PEG tube site. She denies any episodes of choking but does feel like something is stuck in her throat all the time. She denies fever, chest pain, shortness of breath, nausea, vomiting, melena, or hematochezia. Pt found to be septic secondary to aspiration pneumonia and was started on Unasyn. WBC has elevated to 21.6. CDiff was positive. Procedures: EGD 06/13/2017 Dr. Jama: One nonbleeding duodenal ulcer, PEG tube inserted. NSAIDs: None Anticoagulation: None Past Med Surg Social Fam HX - Past Medical History Medical history: COPD, RA, other (dysphagia) Psychiatric history: anxiety - Past Surgical History Surgical History: other - Social History Smoking Status: Current every day smoker Smokeless Tobacco Status: No Alcohol use: none Drug use: none - Family History Mother Adopted: No Family Member Ethnicity: Non- Living Status: Still Living Hx Family Cardiac Disorders: Yes (Unknown) Hx Family Cancer: Yes (Uterine) Hx Family Endocrine Disorder: Yes Father Adopted: No Family Member Ethnicity: Non- Living Status: Hx Family Cardiac Disorders: Yes (Angina) Hx Family GI Disorders: Yes Hx Family Endocrine Disorder: Yes Hx Family Neuromuscular Disorders: Yes (Multiple Sclerosis) Hx Family Neurologic Disorders: Yes - Gastrointestinal Gastrointestinal: Present: as per HPI - Constitutional Constitutional: as per HPI - EENT Eyes: as per HPI Ears: Present: as per HPI Nose, mouth and throat: Present: as per HPI - Cardiovascular Cardiovascular ROS: Present: as per HPI - Respiratory Respiratory IM: Present: as per HPI - Genitourinary Genitourinary: Absent: change in color, Urinary frequency - Neurological ROS Neurological GI: Present: as per HPI - Hematologic/Lymphatic Hematologic/Lymphatic pediatric: Present: as per HPI - Musculoskeletal Musculoskeletal ROS GI: Present: as per HPI - Integumentary Integumentary GI: Present: as per HPI - Psychiatric ROS Psychiatric GI: Present: as per HPI - Endocrine Endocrine IM: Present: as per HPI - Constitutional Vitals: Temp Pulse Resp BP Pulse Ox 99.4 F 103 16 114/67 93 08/10/17 06:55 08/10/17 06:55 08/10/17 06:55 08/10/17 06:55 08/10/17 06:55 General appearance: Present: cooperative, A&O X 3, no acute distress, answers questions appropriately - Head Head exam: Present: atraumatic, normocephalic - Eye Eye exam: Present: normal appearance, sclera anicteric - ENT ENT exam: Present: mucous membranes dry - Neck Neck exam general surgery: Present: normal inspection, trachea midline - Respiratory Respiratory exam: Present: decreased breath sounds, CTAB - Cardiovascular Cardiovascular exam: Present: RRR, +S1, +S2 - GI/Abdominal GI/Abdominal exam: Present: soft, tenderness (mild lower abdominal), no peritoneal signs. Absent: distended, firm, guarding Additional comments: PEG tube site without drainage or erythema - Rectal Rectal exam: Present: deferred - Extremities Exam Extremities exam: Present: warm - Neurological Exam Neurological exam: Present: no focal deficits - Psychiatric Psychiatric exam: Present: normal affect, normal mood - Skin Skin exam: Present: dry, intact, normal color, warm Results - Labs CBC & Chem 7: 08/10/17 04:20 08/10/17 04:20 Labs: Last Result Calcium 8.8 mg/dL (8.6-10.3) 08/10/17 04:20 Troponin I < 0.03 ng/mL (< 0.04) 08/07/17 08:00 Entire Visit Hgb 13.5 g/dL (11.5-15.4) 08/10/17 04:20 Hct 39.7 % (35.3-44.9) 08/10/17 04:20 PT 9.8 Seconds (9.4-12.1) 08/07/17 08:00 Total Bilirubin 0.5 mg/dL (0.3-1.0) 08/07/17 08:00 AST 21 Units/L (13-39) 08/07/17 08:00 ALT 28 Units/L (7-52) 08/07/17 08:00 - ABG ABG results: PT/INR, D-dimer PT 9.8 Seconds (9.4-12.1) 08/07/17 08:00 - Impressions Impressions Videofluoroscopic Swallow 08/08/17 00:01 IMPRESSION: Aspiration of thin and nectar thick barium. Please see separate speech pathology report for full discussion of findings and recommendations. D/ : / 08/08/2017 13:53:50 Gonzales Munoz MD / [email or web address] Interpreting Provider: Gonzales Munoz MD Consult Discharge Plan - Plan Referrals: Natalya Vasquez MD [Primary Care Provider] -
[2017-08-10] MEDS: Vancomycin Oral Soln 250 MG/5 ML UDC PO SCH ×4 (11:12→21:04)
[2017-08-10] MEDS: Acetaminophen 325 MG TABLET PO PRN (16:26)
[2017-08-10] MEDS: 0.9 % Sodium Chloride 1,000 ML IVC SCH (17:13)
[2017-08-10] MEDS: Piperacillin/Tazobactam 3.375 GM in 0.9 % Sodium Chloride Mini Bag 100 ML IVPB SCH (18:40)
[2017-08-11] MEDS: Artificial Tears SOLN 15 ML BOTTLE OP SCH ×7 (00:11→23:26)
[2017-08-11] MEDS: *HR* OxyCODONE Immed Rel 5 MG TABLET GTUBE PRN ×3 (04:01→23:25)
[2017-08-11] MEDS: Piperacillin/Tazobactam 3.375 GM in 0.9 % Sodium Chloride Mini Bag 100 ML IVPB SCH ×3 (04:01→18:40)
[2017-08-11] MEDS: *HR* Heparin 5,000 UNIT/ML VIAL SQ SCH ×2 (05:25→18:40)
[2017-08-11 07:17] LABS: BUN/Creatinine Ratio 41 (6-26); Blood Urea Nitrogen 12 mg/dL (8-23); Calcium 8.4 mg/dL (8.6-10.3); Carbon Dioxide 31 mEq/L (23-29); Chloride 105 mEq/L (98-107); Glucose 123 mg/dL (70-105); Osmolality,Calculated 283 (280-300); Potassium 3.9 mEq/L (3.5-5.1); Sodium 136 mEq/L (136-145); eGFR For African Americans > 60 (> 60); eGFR For Non-African Americans > 60 (> 60)
[2017-08-11 07:18] LABS: Magnesium 1.7 mg/dL (1.6-2.6); Phosphorous 2.3 mg/dL (2.7-4.5)
[2017-08-11 07:31] LABS: Hematocrit 38.2 % (35.3-44.9); Hemoglobin 12.1 g/dL (11.5-15.4); Mean Corpuscular HGB Conc 31.7 g/dL (31.6-35.5); Mean Corpuscular Hemoglobin 30.8 pg (28.0-33.3); Mean Corpuscular Volume 97.2 fL (83.0-100.0); Mean Platelet Volume 10.1 fL (9.4-12.4); Platelet Count 243 K/mcL (140-400); Red Blood Count 3.93 M/mcL (3.82-4.97); Red Cell Distribution Width 11.9 % (11.5-14.5)
[2017-08-11] MEDS: Budesonide/Formoterol 80/4.5 MDI IH SCH ×2 (07:46→22:56)
[2017-08-11] MEDS: Tiotropium 18 MCG inhalation IH SCH (07:47)
[2017-08-11] MEDS: Acetaminophen 325 MG TABLET PO PRN (08:53)
[2017-08-11] MEDS: *HR* LORazepam 0.5 MG TABLET GTUBE PRN ×2 (08:53→23:25)
[2017-08-11] MEDS: Nystatin SUSP 5 ML UD.LIQ PO SCH ×4 (08:53→20:00)
[2017-08-11] MEDS: Vancomycin Oral Soln 250 MG/5 ML UDC PO SCH ×4 (08:53→20:01)
[2017-08-11] MEDS: Nicotine 21 MG PATCH.TD24 TD SCH (08:54)
[2017-08-11] MEDS: 0.9 % Sodium Chloride 1,000 ML IVC SCH (10:35)
--- NOTE | 2017-08-11 12:11 | Internal Med Progress Note ---
Date of Encounter: 08/11/17 Time of Encounter: 12:09 - Assessment and plan (1) Sepsis Current Visit: Yes Status: Acute Assessment and plan: Sepsis secondary to aspiration pneumonia present upon admission worsened by C diff colitis resumed Zosyn IV day #2, continue oral vancomycin day #2 sputum culture IVF Qualifiers: Sepsis type: sepsis due to unspecified organism Qualified Code(s): A41.9 - Sepsis, unspecified organism (2) C. difficile diarrhea Current Visit: Yes Status: Acute Assessment and plan: vanco stopped flagyl (3) Aspiration pneumonia Current Visit: Yes Status: Suspected Assessment and plan: Sepsis secondary to aspiration pneumonia present upon admission secondary to severe dysphagia continue Zosyn as she did not respond to Unasyn Stopped vancomycin IV Aspiration precautions, continue tube feeds through PEG tube IVF Qualifiers: Aspiration pneumonia type: unspecified Laterality: right Lung location: lower lobe of lung Qualified Code(s): J69.0 - Pneumonitis due to inhalation of food and vomit (4) Duodenal ulcer Current Visit: Yes Status: Acute Assessment and plan: History of duodenal ulcer Uses ranitidine through PEG tube (5) Oropharyngeal dysphagia Current Visit: Yes Status: Acute Assessment and plan: Tube feeds through PEG tube Nothing by mouth (6) COPD (chronic obstructive pulmonary disease) Current Visit: Yes Status: Chronic Assessment and plan: No exacerbation Qualifiers: COPD type: emphysema Emphysema type: other Qualified Code(s): J43.8 - Other emphysema (7) Severe protein-calorie malnutrition Current Visit: No Status: Acute (8) Tobacco abuse Current Visit: No Status: Chronic Assessment and plan: Smoking cessation counseling given for 5 minutes, nicotine patch - Subjective Interval history: Weak but better. Less SOB. Having diarrhea. Coughing up yellowish phlegm, denied any chest pain, no abdominal pain, chokes on food sometimes, denies any dysuria - Constitutional Vitals: Temp Pulse Resp BP Pulse Ox 98.1 F 84 18 109/66 99 08/11/17 11:43 08/11/17 11:43 08/11/17 11:43 08/11/17 11:43 08/11/17 11:43 General appearance: Present: cachectic, cooperative, mild distress, A&O X 3, answers questions appropriately Exam: - Head Head exam: Present: atraumatic, normocephalic - Eye Eye exam: Present: PERRL, conjuntiva pink, sclera anicteric Pupils: Present: PERRL - Neck Neck exam general surgery: Present: supple, trachea midline. Absent: lymphadenopathy - Respiratory Respiratory exam: Present: decreased breath sounds (on the right, upper airway congestion ), CTAB. Absent: accessory muscle use, rales, rhonchi, wheezes - Cardiovascular Cardiovascular exam: Present: RRR, +S1, +S2. Absent: diastolic murmur, gallop, rubs, systolic murmur - GI/Abdominal GI/Abdominal exam: Present: normal bowel sounds, soft, no peritoneal signs. Absent: distended, tenderness Additional comments: PEG tube - Extremities Exam Extremities exam: Present: warm, radial pulses palpable and symmetrical. Absent : calf tenderness, cyanotic, pedal edema - Neurological Exam Neurological exam: Present: CN II-XII intact, oriented X3, no focal deficits. Absent: pronater drift, facial droop, speech deficit - Skin Skin exam: Present: dry, intact Internal Medicine: Result - Labs CBC & Chem 7: 08/11/17 06:33 08/11/17 06:33 Labs: Short CBC 08/11/17 Range/Units 06:33 WBC 13.8 H (4.3-11.1) K/mcL Hgb 12.1 (11.5-15.4) g/dL Hct 38.2 (35.3-44.9) % Plt Count 243 (140-400) K/mcL BMP 08/11/17 06:33 Sodium 136 Potassium 3.9 Chloride 105 Carbon Dioxide 31 H BUN 12 Creatinine 0.29 L Glucose 123 H Calcium 8.4 L - ABG Interpretation ABG results: PT/INR, D-dimer PT 9.8 Seconds (9.4-12.1) 08/07/17 08:00 Consult Discharge Plan - Plan Referrals: Natalya Vasquez MD [Primary Care Provider] -
[2017-08-12] MEDS: Piperacillin/Tazobactam 3.375 GM in 0.9 % Sodium Chloride Mini Bag 100 ML IVPB SCH ×3 (03:24→20:21)
[2017-08-12] MEDS: Artificial Tears SOLN 15 ML BOTTLE OP SCH ×5 (03:27→20:27)
[2017-08-12 04:26] LABS: Hematocrit 39.7 % (35.3-44.9); Hemoglobin 12.3 g/dL (11.5-15.4); Mean Corpuscular Hemoglobin 30.5 pg (28.0-33.3); Mean Corpuscular Volume 98.5 fL (83.0-100.0); Mean Platelet Volume 10.7 fL (9.4-12.4); Platelet Count 185 K/mcL (140-400); Red Blood Count 4.03 M/mcL (3.82-4.97); Red Cell Distribution Width 11.9 % (11.5-14.5)
[2017-08-12] MEDS: *HR* Heparin 5,000 UNIT/ML VIAL SQ SCH ×2 (05:40→17:45)
[2017-08-12 06:18] LABS: BUN/Creatinine Ratio 18 (6-26); Blood Urea Nitrogen 9 mg/dL (8-23); Calcium 8.7 mg/dL (8.6-10.3); Carbon Dioxide 29 mEq/L (23-29); Chloride 101 mEq/L (98-107); Glucose 131 mg/dL (70-105); Osmolality,Calculated 284 (280-300); Potassium 3.9 mEq/L (3.5-5.1); Sodium 137 mEq/L (136-145); eGFR For African Americans > 60 (> 60); eGFR For Non-African Americans > 60 (> 60)
[2017-08-12] MEDS: Budesonide/Formoterol 80/4.5 MDI IH SCH ×2 (07:41→22:58)
[2017-08-12] MEDS: Tiotropium 18 MCG inhalation IH SCH (07:41)
[2017-08-12] MEDS: 0.9 % Sodium Chloride 1,000 ML IVC SCH ×2 (09:10→09:41)
[2017-08-12] MEDS: *HR* LORazepam 0.5 MG TABLET GTUBE PRN ×2 (09:39→20:32)
[2017-08-12] MEDS: Nicotine 21 MG PATCH.TD24 TD SCH (09:39)
[2017-08-12] MEDS: Nystatin SUSP 5 ML UD.LIQ PO SCH ×4 (09:39→20:27)
[2017-08-12] MEDS: *HR* OxyCODONE Immed Rel 5 MG TABLET GTUBE PRN ×2 (09:39→17:45)
--- NOTE | 2017-08-12 09:39 | Discharge Summary ---
- NOTES TO OUTPATIENT PROVIDER Notes to Outpatient Provider: Continue tube feeds with Jevity at 50 cc/h. COntinue Zosyn for 5 more days. Oral Vancomycin for 12 more days. Aspiration precautions. Date of Encounter: 08/12/17 Time of Encounter: 09:37 - Discharge Diagnosis (1) Sepsis Priority: Primary Status: Acute Comments: Sepsis secondary to aspiration pneumonia present upon admission worsened by C diff colitis Qualifiers: Sepsis type: sepsis due to unspecified organism Qualified Code(s): A41.9 - Sepsis, unspecified organism (2) C. difficile diarrhea Priority: Primary Status: Acute (3) Aspiration pneumonia Priority: Primary Status: Suspected Comments: Sepsis secondary to aspiration pneumonia present upon admission secondary to severe dysphagia Qualifiers: Aspiration pneumonia type: unspecified Laterality: right Lung location: lower lobe of lung Qualified Code(s): J69.0 - Pneumonitis due to inhalation of food and vomit (4) Duodenal ulcer Priority: Secondary Status: Acute (5) Oropharyngeal dysphagia Priority: Secondary Status: Acute (6) COPD (chronic obstructive pulmonary disease) Priority: Secondary Status: Chronic Qualifiers: COPD type: emphysema Emphysema type: other Qualified Code(s): J43.8 - Other emphysema (7) Severe protein-calorie malnutrition Priority: Secondary Status: Acute (8) Tobacco abuse Priority: Secondary Status: Chronic Hospital course: Ms. Lindo is a 67 year old female with a past medical history of COPD oxygen dependent, pneumothorax right is, severe dysphagia using a PEG tube since May, recurrent aspiration pneumonia, protein calorie malnutrition, presented to the ER with complaints of pain at site of PEG tube insertion. She was also having increased cough and fevers at home. She denied any discharge or redness around her PEG tube site. She does have chronic cough and is a chronic smoker. She does produce large amounts of sputum at times. Patient was hospitalized here in May and was then discharged to skilled rehabilitation. She was then discharged back home from the skilled rehabilitation. She was previously on Ativan and has not been getting her Ativan recently as her primary care provider did not prescribe it for her. Was initially started on IV vancomycin and Zosyn, she was switched to Unasyn but did not improve, her white blood cell count increased to 21.6, improved after restarting Zosyn. Unfortunately the patient started developing bouts of diarrhea, tested positive for C. difficile which also improved after starting oral vancomycin. Patient is more stable at the moment and is currently using her tube feeds. Feeling stronger, her white blood cell count has decreased down to 9.6, no more fevers. Was given the option to stay another day but she prefers to be discharged on home health services which were arranged since last week. Needs to remain nothing by mouth Time spent discussing smoking cessation with patient: 3 to 10 minutes - Time Spent with Patient Total time spent providing and/or coordinating discharge services: Greater than 30 minutes (40 min) - Discharge Medications Prescriptions: Piperacillin/Tazobactam [Zosyn] 3.375 gm IVPB Q8HR #15 vial Oxycodone HCl [Oxaydo] 5 mg GTUBE Q8H PRN 7 Days #20 tablet.orl PRN Reason: Pain Vancomycin Oral Soln [Vancocin] 125 mg GTUBE QID 12 Days [facility] [place] Home Medications: Albuterol Neb [Proventil Neb] 2.5 mg IH Q4H PRN 12/22/15 [History] Albuterol Sulfate [Proair Hfa] 2 puff IH Q4H PRN 12/22/15 [History] Fluticasone/Salmeterol [Advair 250-50 Diskus] 1 puff IH BID 12/22/15 [History] Tiotropium [Spiriva] 18 mcg IH 0700 12/22/15 [History] Acetaminophen [Tylenol] 650 mg PO Q6HR PRN tablet 06/18/17 [Rx] Ipratropium/Albuterol Neb [Duoneb] 3 ml IH [id number] PRN inhsol 06/18/17 [Rx] Nicotine Patch [Nicoderm] 21 mg TD DAILY patch.td24 06/18/17 [Rx] Loratadine [Claritin] 10 mg GTUBE DAILY PRN 08/07/17 [History] Metoprolol [Lopressor] 25 mg GTUBE BID 08/07/17 [History] Polyethylene Glycol 3350 [MiraLAX] 17 gm GTUBE DAILY PRN 08/07/17 [History] Polyvinyl Alcohol [Artificial Tears] 1 drop OP Q4H 08/07/17 [History] Ranitidine HCl [Acid [employer]] 150 mg GTUBE BID 08/07/17 [History] Sennosides/Docusate Sodium [Senna Plus] 1 tab GTUBE BID 08/07/17 [History] LORazepam [Ativan] 0.5 mg GTUBE TID PRN 5 Days #15 08/12/17 [Rx] Oxycodone HCl [Oxaydo] 5 mg GTUBE Q8H PRN 7 Days #20 tablet.orl 08/12/17 [Rx] Piperacillin/Tazobactam [Zosyn] 3.375 gm IVPB Q8HR #15 vial 08/12/17 [Rx] Vancomycin Oral Soln [Vancocin] 125 mg GTUBE QID 12 Days [facility] 08/12/17 [Rx] Allergies/Adverse Reactions: 3 Allergy/AdvReac Type Severity Reaction Status Date / Time NSAIDS (Non-Steroidal AdvReac unknown Verified 08/07/17 07:29 Anti-Inflamma Date of admission: 08/10/17 11:50 Primary care physician: Natalya Vasquez - Constitutional Vitals: Temp Pulse Resp BP Pulse Ox 99.3 F 95 18 150/76 93 08/12/17 07:27 08/12/17 07:27 08/12/17 07:44 08/12/17 07:27 08/12/17 07:44 General appearance: Present: cachectic, cooperative, mild distress, A&O X 3, answers questions appropriately Exam: - Head Head exam: Present: atraumatic, normocephalic - Eye Eye exam: Present: PERRL, conjuntiva pink, sclera anicteric Pupils: Present: PERRL - Neck Neck exam general surgery: Present: supple, trachea midline. Absent: lymphadenopathy - Respiratory Respiratory exam: Present: decreased breath sounds (on the right, upper airway congestion ), CTAB. Absent: accessory muscle use, rales, rhonchi, wheezes - Cardiovascular Cardiovascular exam: Present: RRR, +S1, +S2. Absent: diastolic murmur, gallop, rubs, systolic murmur - GI/Abdominal GI/Abdominal exam: Present: normal bowel sounds, soft, no peritoneal signs. Absent: distended, tenderness Additional comments: PEG tube - Extremities Exam Extremities exam: Present: warm, radial pulses palpable and symmetrical. Absent : calf tenderness, cyanotic, pedal edema - Neurological Exam Neurological exam: Present: CN II-XII intact, oriented X3, no focal deficits. Absent: pronater drift, facial droop, speech deficit - Skin Skin exam: Present: dry, intact - Patient Status Disposition: Home Health Service Condition: Fair Overall status at discharge: patient is progressing back to baseline - Discharge Instructions Follow Up With: Natalya Vasquez MD [Primary Care Provider] - Additional Instructions: Follow-up with primary care physician within the next 7 days. Continue tube feeds with Jevity at 50 cc/h. COntinue Zosyn for 5 more days. Oral Vancomycin for 12 more days. Aspiration precautions. NPO - Diet and Activity Activity: increase activity as tolerated Diet: other
[2017-08-12] MEDS: Vancomycin Oral Soln 250 MG/5 ML UDC PO SCH ×4 (09:40→20:29)
--- NOTE | 2017-08-12 09:57 | Physician Discharge Referral ---
Home Health/Hosp Referral Info Transfer to: Home Health Provider in Charge Post Discharge: PCP - Diagnosis (1) Sepsis Status: Acute (2) C. difficile diarrhea Status: Acute (3) Aspiration pneumonia Status: Suspected (4) Duodenal ulcer Status: Acute (5) Oropharyngeal dysphagia Status: Acute (6) COPD (chronic obstructive pulmonary disease) Status: Chronic (7) Severe protein-calorie malnutrition Status: Acute (8) Tobacco abuse Status: Chronic - Respiratory Orders Oxygen / L per min (2 Lt) Smoking Cessation: Smoking cessation has been advised. For more information, call the [place] [employer] Quit Line at 8-046-JMOH-NOW. - Services Needed Following services are medically necessary services: Nursing, Home Health Aide, Physical Therapy, Occupational Therapy, Home Infusion Home Care Orders: Follow-up with primary care physician within the next 7 days. Continue tube feeds with Jevity at 50 cc/h. COntinue Zosyn for 5 more days. Oral Vancomycin for 12 more days. Aspiration precautions. NPO - Transfer Medications Prescriptions: Piperacillin/Tazobactam [Zosyn] 3.375 gm IVPB Q8HR #15 vial Oxycodone HCl [Oxaydo] 5 mg GTUBE Q8H PRN 7 Days #20 tablet.orl PRN Reason: Pain Vancomycin Oral Soln [Vancocin] 125 mg GTUBE QID 12 Days [facility] Home Medications: Albuterol Neb [Proventil Neb] 2.5 mg IH Q4H PRN 12/22/15 [History] Albuterol Sulfate [Proair Hfa] 2 puff IH Q4H PRN 12/22/15 [History] Fluticasone/Salmeterol [Advair 250-50 Diskus] 1 puff IH BID 12/22/15 [History] Tiotropium [Spiriva] 18 mcg IH 0700 12/22/15 [History] Acetaminophen [Tylenol] 650 mg PO Q6HR PRN tablet 06/18/17 [Rx] Ipratropium/Albuterol Neb [Duoneb] 3 ml IH [id number] PRN inhsol 06/18/17 [Rx] Nicotine Patch [Nicoderm] 21 mg TD DAILY patch.td24 06/18/17 [Rx] Loratadine [Claritin] 10 mg GTUBE DAILY PRN 08/07/17 [History] Metoprolol [Lopressor] 25 mg GTUBE BID 08/07/17 [History] Polyethylene Glycol 3350 [MiraLAX] 17 gm GTUBE DAILY PRN 08/07/17 [History] Polyvinyl Alcohol [Artificial Tears] 1 drop OP Q4H 08/07/17 [History] Ranitidine HCl [Acid [employer] Dba] 150 mg GTUBE BID 08/07/17 [History] Sennosides/Docusate Sodium [Senna Plus] 1 tab GTUBE BID 08/07/17 [History] LORazepam [Ativan] 0.5 mg GTUBE TID PRN 5 Days #15 08/12/17 [Rx] Oxycodone HCl [Oxaydo] 5 mg GTUBE Q8H PRN 7 Days #20 tablet.orl 08/12/17 [Rx] Piperacillin/Tazobactam [Zosyn] 3.375 gm IVPB Q8HR #15 vial 08/12/17 [Rx] Vancomycin Oral Soln [Vancocin] 125 mg GTUBE QID 12 Days [facility] 08/12/17 [Rx] Allergies/Adverse Reactions: 3 Allergy/AdvReac Type Severity Reaction Status Date / Time NSAIDS (Non-Steroidal AdvReac unknown Verified 08/07/17 07:29 Anti-Inflamma Certification: Further, I certify that my clinical findings support that this patient is homebound (i.e. absences from home require considerable and taxing effort and are for medical reasons or advent services or infrequently or short duration when for other reasons) because: Homebound Reason: Patient requires assistance of a person or device to safely leave home Attestation: My signature below is to certify that this patient is under my care and that I, or nurse practitioner, or a physician's diagnostic assistant working with me, has a face-to -face encounter with this patient.
[2017-08-12] MEDS: Acetaminophen 325 MG TABLET PO PRN (20:32)
[2017-08-13] MEDS: Artificial Tears SOLN 15 ML BOTTLE OP SCH ×3 (00:04→11:46)
[2017-08-13] MEDS: Piperacillin/Tazobactam 3.375 GM in 0.9 % Sodium Chloride Mini Bag 100 ML IVPB SCH (03:12)
[2017-08-13] MEDS: *HR* Heparin 5,000 UNIT/ML VIAL SQ SCH (05:19)
[2017-08-13] MEDS: *HR* OxyCODONE Immed Rel 5 MG TABLET GTUBE PRN (05:59)
[2017-08-13] MEDS: *HR* LORazepam 0.5 MG TABLET GTUBE PRN (05:59)
[2017-08-13] MEDS: Budesonide/Formoterol 80/4.5 MDI IH SCH (07:40)
[2017-08-13] MEDS: Tiotropium 18 MCG inhalation IH SCH (07:40)
[2017-08-13] MEDS: Nystatin SUSP 5 ML UD.LIQ PO SCH (08:11)
[2017-08-13] MEDS: Vancomycin Oral Soln 250 MG/5 ML UDC PO SCH (08:12)
[2017-08-13] MEDS: Nicotine 21 MG PATCH.TD24 TD SCH (08:12)
--- NOTE | 2017-08-13 09:12 | Internal Med Progress Note ---
Date of Encounter: 08/13/17 Time of Encounter: 09:07 - Assessment and plan (1) Sepsis Current Visit: Yes Status: Acute Assessment and plan: Sepsis secondary to aspiration pneumonia present upon admission worsened by C diff colitis continue Zosyn IV day #4, continue oral vancomycin day #4 The patient stated an additional day as she did not have a power glide. SHe will be discharged today 08/13/17 sputum culture grew E coli resistant to Unasyn she is being treated for aspiration PNA , will continue Zosyn discharge today Qualifiers: Sepsis type: sepsis due to unspecified organism Qualified Code(s): A41.9 - Sepsis, unspecified organism (2) C. difficile diarrhea Current Visit: Yes Status: Acute Assessment and plan: vanco stopped flagyl (3) Aspiration pneumonia Current Visit: Yes Status: Suspected Assessment and plan: Sepsis secondary to aspiration pneumonia present upon admission secondary to severe dysphagia continue Zosyn as she did not respond to Unasyn Stopped vancomycin IV Aspiration precautions, continue tube feeds through PEG tube IVF Qualifiers: Aspiration pneumonia type: unspecified Laterality: right Lung location: lower lobe of lung Qualified Code(s): J69.0 - Pneumonitis due to inhalation of food and vomit (4) Duodenal ulcer Current Visit: Yes Status: Acute Assessment and plan: History of duodenal ulcer Uses ranitidine through PEG tube (5) Oropharyngeal dysphagia Current Visit: Yes Status: Acute Assessment and plan: Tube feeds through PEG tube Nothing by mouth (6) COPD (chronic obstructive pulmonary disease) Current Visit: Yes Status: Chronic Assessment and plan: No exacerbation Qualifiers: COPD type: emphysema Emphysema type: other Qualified Code(s): J43.8 - Other emphysema (7) Severe protein-calorie malnutrition Current Visit: No Status: Acute (8) Tobacco abuse Current Visit: No Status: Chronic Assessment and plan: Smoking cessation counseling given for 5 minutes, nicotine patch - Subjective Interval history: No new complaints. Weak but better. Less SOB. Having diarrhea. Coughing up less phlegm, denied any chest pain, no abdominal pain, chokes with saliva sometimes, denies any dysuria - Constitutional Vitals: Temp Pulse Resp BP Pulse Ox 96.6 F L 83 16 155/89 90 08/13/17 07:26 08/13/17 07:26 08/13/17 07:40 08/13/17 07:26 08/13/17 07:40 General appearance: Present: cachectic, cooperative, mild distress, A&O X 3, answers questions appropriately Exam: - Head Head exam: Present: atraumatic, normocephalic - Eye Eye exam: Present: PERRL, conjuntiva pink, sclera anicteric Pupils: Present: PERRL - Neck Neck exam general surgery: Present: supple, trachea midline. Absent: lymphadenopathy - Respiratory Respiratory exam: Present: decreased breath sounds (on the right, upper airway congestion ), CTAB. Absent: accessory muscle use, rales, rhonchi, wheezes - Cardiovascular Cardiovascular exam: Present: RRR, +S1, +S2. Absent: diastolic murmur, gallop, rubs, systolic murmur - GI/Abdominal GI/Abdominal exam: Present: normal bowel sounds, soft, no peritoneal signs. Absent: distended, tenderness Additional comments: PEG tube - Extremities Exam Extremities exam: Present: warm, radial pulses palpable and symmetrical. Absent : calf tenderness, cyanotic, pedal edema - Neurological Exam Neurological exam: Present: CN II-XII intact, oriented X3, no focal deficits. Absent: pronater drift, facial droop, speech deficit - Skin Skin exam: Present: dry, intact Internal Medicine: Result - Labs CBC & Chem 7: 08/12/17 03:52 08/12/17 03:52 - ABG Interpretation ABG results: PT/INR, D-dimer PT 9.8 Seconds (9.4-12.1) 08/07/17 08:00 Consult Discharge Plan - Plan Additional Instructions: Follow-up with primary care physician within the next 7 days. Continue tube feeds with Jevity at 50 cc/h. COntinue Zosyn for 5 more days. Oral Vancomycin for 12 more days. Aspiration precautions. NPO Referrals: Natalya Vasquez MD [Primary Care Provider] - Prescriptions: Piperacillin/Tazobactam [Zosyn] 3.375 gm IVPB Q8HR #15 vial Nystatin [Nystatin Suspension] 10 units PO QID #120 ml Oxycodone HCl [Oxaydo] 5 mg GTUBE Q8H PRN 7 Days #20 tablet.orl PRN Reason: Pain Vancomycin Oral Soln [Vancocin] 125 mg GTUBE QID 12 Days [facility]
[2017-08-13] MEDS ORDERED: metroNIDAZOLE 500 MG TABLET GTUBE SCH (10:30)
[2017-08-13] MEDS ORDERED: cefTRIAXone 1,000 MG in Water for inj. (sterile) 20 ML 10 ML IVP SCH (11:00)
[2017-08-13 11:20] VITALS: BP 156/81
== END 2017-08-13 16:00 | disposition home health service (06) | DRG 871 ==
LOC: EMEROO 07:21 → 2SOUTHHOLD 07:21 → 3ANU 18:53
PROVIDERS: ADMIT Internal Medicine; ATTEND Internal Medicine

== ENCOUNTER 2019-12-16 23:05 | Inpatient (IN) ==
[2019-12-17] MEDS ORDERED: Isovue-370 500 ML BOTTLE IVP ONE (00:23)
[2019-12-17] MEDS ORDERED: Ipratropium/Albuterol Neb 3 ML IH ONE (00:25)
[2019-12-17] MEDS ORDERED: methylPREDNISolone 125 MG/2 ML VIAL IVP ONE (00:27)
[2019-12-17 01:52] LABS: Basophils % 0.2 %; Eosinophils % 0.1 %; Hematocrit 37.8 % (35.3-44.9); Immature Granulocytes % 0.5 % (0-4); Lymphocytes # 2.6 K/mcL (0.6-4.6); Lymphocytes % 19.8 %; Mean Corpuscular HGB Conc 31.7 g/dL (31.6-35.5); Mean Corpuscular Hemoglobin 27.7 pg (28.0-33.3); Mean Corpuscular Volume 87.3 fL (83.0-100.0); Mean Platelet Volume 9.5 fL (9.4-12.4); Monocytes % 7.4 %; Neutrophils # 9.5 K/mcL (1.6-8.9); Platelet Count 323 K/mcL (140-400); Red Blood Count 4.33 M/mcL (3.82-4.97); Red Cell Distribution Width 13.7 % (11.5-14.5); White Blood Count 13.2 K/mcL (4.3-11.1)
[2019-12-17 02:04] LABS: Prothrombin Time 11.7 Seconds (9.4-12.1)
[2019-12-17 02:06] LABS: Activated Partial Thrombo Time 31.8 Seconds (26.0-36.0)
[2019-12-17 02:15] LABS: Alanine Aminotransferase 13 Units/L (7-52); Albumin/Globulin Ratio 0.8 (1.1-2.2); Alkaline Phosphatase 52 Units/L (34-104); Aspartate Amino Transferase 20 Units/L (13-39); BUN/Creatinine Ratio 29 (6-26); Bilirubin,Direct 0.1 mg/dL (0.0-0.2); Bilirubin,Indirect 0.3 mg/dL (0.0-1.0); Bilirubin,Total 0.4 mg/dL (0.3-1.0); Blood Urea Nitrogen 13 mg/dL (8-23); Calcium 8.9 mg/dL (8.6-10.3); Carbon Dioxide 25 mEq/L (23-29); Chloride 97 mEq/L (98-107); Glucose 106 mg/dL (70-105); Osmolality,Calculated 271 (280-300); Potassium 4.1 mEq/L (3.5-5.1); Sodium 130 mEq/L (136-145); Troponin I < 0.03 ng/mL (< 0.04); eGFR For African Americans > 60 (> 60); eGFR For Non-African Americans > 60 (> 60)
[2019-12-17 04:37] LABS: Bacteria,Urine Few per hpf (None-Few); Bilirubin,Urine Negative (Negative); Blood,Urine Negative (Negative); Clarity,Urine Clear (Clear); Color,Urine Light-Yellow (Yellow); Glucose,Urine (UA) Normal (Normal); Ketones,Urine Negative (Negative); Leukocyte Esterase,Urine Large (Negative); Nitrite,Urine Negative (Negative); PH,Urine 6.5 pH Units (5.0-8.0); Protein,Urine Negative (Neg-Trace); RBC,Urine 0-3 per hpf (0-3); Specific Gravity,Urine 1.015 (1.010-1.025); Squamous Epithelial Cell,Urine Few per hpf (None-Few); Urobilinogen,Urine Normal (Normal); WBC,Urine 15-30 per hpf (0-3)
[2019-12-17] MEDS ORDERED: cefTRIAXone 1,000 MG in 0.9 % Sodium Chloride Mini Bag 100 ML IVPB ONE (05:00)
[2019-12-17] MEDS ORDERED: Azithromycin 500 MG in 0.9 % Sodium Chloride 250 ML IVPB ONE (05:00)
[2019-12-17 08:32] LABS: Adenovirus Not Detected (Not Detect); Bordetella Pertussis Not Detected (Not Detect); Chlamydophila pneumoniae Not Detected (Not Detect); Coronavirus 229E Not Detected (Not Detect); Coronavirus HKU1 Not Detected (Not Detect); Coronavirus NL63 Not Detected (Not Detect); Coronavirus OC43 Not Detected (Not Detect); Human Metapneumovirus Not Detected (Not Detect); Human Rhinovirus/Enterovirus Not Detected (Not Detect); Influenza A Subtype 2009 H1 Not Detected (Not Detect); Influenza B Not Detected (Not Detect); Mycoplasma pneumoniae Not Detected (Not Detect); Parainfluenza Virus 1 Not Detected (Not Detect); Parainfluenza Virus 2 Not Detected (Not Detect); Parainfluenza Virus 3 Not Detected (Not Detect); Parainfluenza Virus 4 Not Detected (Not Detect); Respiratory Syncytial Virus Not Detected (Not Detect)
[2019-12-17] MEDS ORDERED: Naloxone 0.4 MG/ML INJ IVP PRN (09:12)
[2019-12-17] MEDS ORDERED: Ondansetron ODT 4 MG TAB.RAPDIS SL PRN (09:12)
[2019-12-17] MEDS ORDERED: 0.9 % Sodium Chloride 1,000 ML IVC ONE (09:39)
[2019-12-17] MEDS: Budesonide/Formoterol 160/4.5 1 PUFF INH IH SCH ×2 (11:08→19:38)
[2019-12-17] MEDS: Ipratropium/Albuterol Neb 3 ML IH SCH ×4 (11:08→23:13)
[2019-12-17] MEDS: levoFLOXacin 750 MG/150 ML 750 MG/150 ML BAG IVPB SCH (15:23)
[2019-12-17] MEDS ORDERED: Doxycycline 100 MG in 0.9 % Sodium Chloride Mini Bag 100 ML IVPB SCH (18:00)
[2019-12-17] MEDS: *HR* Heparin 5,000 UNIT/ML VIAL SQ SCH (18:21)
[2019-12-17] MEDS: Acetaminophen 325 MG TABLET PO PRN (18:42)
[2019-12-18] MEDS: *HR* LORazepam 0.5 MG TABLET GTUBE PRN (01:58)
[2019-12-18] MEDS: Ipratropium/Albuterol Neb 3 ML IH SCH ×6 (03:16→23:16)
[2019-12-18] MEDS: *HR* Heparin 5,000 UNIT/ML VIAL SQ SCH ×2 (05:14→17:06)
[2019-12-18 06:14] LABS: Hematocrit 37.5 % (35.3-44.9); Hemoglobin 11.4 g/dL (11.5-15.4); Immature Granulocytes % 0.7 % (0-4); Lymphocytes # 1.2 K/mcL (0.6-4.6); Lymphocytes % 12.1 %; Mean Corpuscular HGB Conc 30.4 g/dL (31.6-35.5); Mean Corpuscular Hemoglobin 27.2 pg (28.0-33.3); Mean Corpuscular Volume 89.5 fL (83.0-100.0); Mean Platelet Volume 9.4 fL (9.4-12.4); Monocytes # 0.4 K/mcL (0.0-1.3); Monocytes % 4.1 %; Platelet Count 311 K/mcL (140-400); Red Blood Count 4.19 M/mcL (3.82-4.97); Red Cell Distribution Width 13.8 % (11.5-14.5); Segmented Neutrophils % 83.1 %; White Blood Count 9.6 K/mcL (4.3-11.1)
[2019-12-18 06:34] LABS: BUN/Creatinine Ratio 27 (6-26); Blood Urea Nitrogen 11 mg/dL (8-23); Calcium 8.8 mg/dL (8.6-10.3); Carbon Dioxide 25 mEq/L (23-29); Chloride 103 mEq/L (98-107); Glucose 142 mg/dL (70-105); Osmolality,Calculated 284 (280-300); Potassium 3.6 mEq/L (3.5-5.1); Sodium 136 mEq/L (136-145); eGFR For African Americans > 60 (> 60); eGFR For Non-African Americans > 60 (> 60)
[2019-12-18] MEDS: Budesonide/Formoterol 160/4.5 1 PUFF INH IH SCH ×2 (07:27→19:38)
[2019-12-18] MEDS ORDERED: *HR* LORazepam 0.5 MG TABLET PO PRN (07:41)
[2019-12-18] MEDS: levoFLOXacin 750 MG/150 ML 750 MG/150 ML BAG IVPB SCH (08:35)
[2019-12-18] MEDS ORDERED: cefTRIAXone 1,000 MG in Water for inj. (sterile) 10 ML IVP SCH (09:00)
[2019-12-18] MEDS ORDERED: Azithromycin 500 MG in 0.9 % Sodium Chloride 250 ML IVPB SCH (09:00)
[2019-12-18] MEDS ORDERED: predniSONE 20 MG TABLET PO SCH (09:00)
[2019-12-18] MEDS ORDERED: Saliva Stimulant 100ml BOTTLE PO PRN (15:01)
[2019-12-18] MEDS ORDERED: *HR* LORazepam 1 MG TABLET PO SCH (21:00)
[2019-12-18] MEDS: MethylPREDNISolone 40 MG/ML VIAL IVP SCH (21:39)
[2019-12-18] MEDS: ALPRAZolam 0.5 MG TABLET PO SCH (22:10)
[2019-12-18] MEDS ORDERED: 0.9 % Sodium Chloride 500 ML IVC ONE (23:09)
[2019-12-18] MEDS ORDERED: 0.9 % Sodium Chloride 500 ML ONE (23:11)
[2019-12-18] MEDS: DilTIAZem 50 MG/50 ML IV.SOLN IVC SCH (23:47)
[2019-12-19 01:27] LABS: Hematocrit 39.3 % (35.3-44.9); Hemoglobin 12.3 g/dL (11.5-15.4); Mean Corpuscular HGB Conc 31.3 g/dL (31.6-35.5); Mean Corpuscular Hemoglobin 28.1 pg (28.0-33.3); Mean Corpuscular Volume 89.9 fL (83.0-100.0); Mean Platelet Volume 9.6 fL (9.4-12.4); Platelet Count 347 K/mcL (140-400); Red Blood Count 4.37 M/mcL (3.82-4.97); Red Cell Distribution Width 13.9 % (11.5-14.5); White Blood Count 10.7 K/mcL (4.3-11.1)
[2019-12-19 01:30] LABS: INR 0.9; Prothrombin Time 10.4 Seconds (9.4-12.1)
[2019-12-19 01:33] LABS: Activated Partial Thrombo Time 29.8 Seconds (26.0-36.0)
[2019-12-19 01:45] LABS: Alanine Aminotransferase 12 Units/L (7-52); Albumin/Globulin Ratio 0.8 (1.1-2.2); Alkaline Phosphatase 55 Units/L (34-104); Aspartate Amino Transferase 17 Units/L (13-39); BUN/Creatinine Ratio 40 (6-26); Bilirubin,Total 0.2 mg/dL (0.3-1.0); Blood Urea Nitrogen 14 mg/dL (8-23); Calcium 9.3 mg/dL (8.6-10.3); Carbon Dioxide 27 mEq/L (23-29); Chloride 104 mEq/L (98-107); Globulin 3.6 g/dL (2.4-3.5); Glucose 122 mg/dL (70-105); Osmolality,Calculated 290 (280-300); Potassium 3.9 mEq/L (3.5-5.1); Sodium 139 mEq/L (136-145); Total Protein 6.6 g/dL (6.4-8.9); eGFR For African Americans > 60 (> 60); eGFR For Non-African Americans > 60 (> 60)
[2019-12-19 01:48] LABS: BUN/Creatinine Ratio 40 (6-26); Blood Urea Nitrogen 14 mg/dL (8-23); Calcium 9.2 mg/dL (8.6-10.3); Carbon Dioxide 26 mEq/L (23-29); Chloride 104 mEq/L (98-107); Glucose 123 mg/dL (70-105); Osmolality,Calculated 290 (280-300); Potassium 3.8 mEq/L (3.5-5.1); Sodium 139 mEq/L (136-145); eGFR For African Americans > 60 (> 60); eGFR For Non-African Americans > 60 (> 60)
[2019-12-19] MEDS: MethylPREDNISolone 40 MG/ML VIAL IVP SCH ×4 (01:48→23:23)
[2019-12-19] MEDS ORDERED: Vancomycin 1,250 MG/262.5 ML IV.SOLN IVPB SCH ×2 (03:00→18:00)
[2019-12-19] MEDS: Levalbuterol Neb 1.25 MG/3 ML IH SCH ×4 (03:28→22:48)
[2019-12-19] MEDS: *HR* Heparin 5,000 UNIT/ML VIAL SQ SCH (05:37)
[2019-12-19] MEDS: levoFLOXacin 750 MG/150 ML 750 MG/150 ML BAG IVPB SCH (08:01)
[2019-12-19] MEDS: DilTIAZem 50 MG/50 ML IV.SOLN IVC SCH (08:35)
[2019-12-19] MEDS: Budesonide/Formoterol 160/4.5 1 PUFF INH IH SCH ×2 (10:01→22:50)
[2019-12-19] MEDS: *HR* LORazepam 0.5 MG TABLET GTUBE PRN (10:05)
[2019-12-19] MEDS ORDERED: Perflutren Lipid Microsphere 1.3 ML in 0.9 % Sodium Chloride 8.7 ML IVP PRN (11:33)
[2019-12-19] MEDS ORDERED: Aminoglycoside Consult 1 EACH MC ONE (13:14)
[2019-12-19] MEDS ORDERED: Ipratropium 1 PUFF INHALER IH PRN (14:40)
[2019-12-19] MEDS: ALPRAZolam 0.5 MG TABLET PO SCH (20:38)
[2019-12-19] MEDS: Apixaban 5 MG TABLET PO SCH (20:39)
[2019-12-19 21:01] LABS: Hematocrit 40.1 % (35.3-44.9); Hemoglobin 12.5 g/dL (11.5-15.4); Mean Corpuscular HGB Conc 31.2 g/dL (31.6-35.5); Mean Corpuscular Hemoglobin 28.3 pg (28.0-33.3); Mean Corpuscular Volume 90.7 fL (83.0-100.0); Mean Platelet Volume 9.6 fL (9.4-12.4); Platelet Count 335 K/mcL (140-400); Red Blood Count 4.42 M/mcL (3.82-4.97); Red Cell Distribution Width 14.1 % (11.5-14.5); White Blood Count 7.2 K/mcL (4.3-11.1)
[2019-12-20] MEDS: Levalbuterol Neb 1.25 MG/3 ML IH SCH ×2 (03:32→11:18)
[2019-12-20] MEDS: Acetaminophen 325 MG TABLET PO PRN (06:07)
[2019-12-20 07:17] LABS: BUN/Creatinine Ratio 51 (6-26); Blood Urea Nitrogen 22 mg/dL (8-23); Calcium 9.2 mg/dL (8.6-10.3); Carbon Dioxide 30 mEq/L (23-29); Chloride 103 mEq/L (98-107); Glucose 184 mg/dL (70-105); Osmolality,Calculated 296 (280-300); Potassium 3.8 mEq/L (3.5-5.1); Sodium 139 mEq/L (136-145); eGFR For African Americans > 60 (> 60); eGFR For Non-African Americans > 60 (> 60)
[2019-12-20] MEDS ORDERED: levoFLOXacin 750 MG TABLET PO SCH (09:00)
[2019-12-20] MEDS ORDERED: predniSONE 20 MG TABLET PO SCH (09:00)
[2019-12-20] MEDS ORDERED: predniSONE 5 MG TABLET PO SCH (09:00)
[2019-12-20] MEDS: Apixaban 5 MG TABLET PO SCH (09:43)
[2019-12-20 10:26] VITALS: BP 114/41
[2019-12-20] MEDS: Budesonide/Formoterol 160/4.5 1 PUFF INH IH SCH (11:18)
== END 2019-12-20 13:15 | disposition home or self-care (01) | DRG 871 ==
LOC: EMEROOARM 23:05 → 3ANU 23:05 → SUATTDRO 12-17 09:12 → 3ANU 12-17 09:18
PROVIDERS: ADMIT Family Medicine; ATTEND Internal Medicine

== ENCOUNTER 2020-02-02 16:44 | Inpatient (IN) ==
[2020-02-02] MEDS ORDERED: Ipratropium/Albuterol Neb 3 ML IH ONE (17:04)
[2020-02-02] MEDS ORDERED: Isovue-370 500 ML BOTTLE IVP ONE (17:04)
[2020-02-02] MEDS ORDERED: methylPREDNISolone 125 MG/2 ML VIAL IVP ONE (17:07)
[2020-02-02 17:28] LABS: Basophils % 0.5 %; Eosinophils % 0.3 %; Hematocrit 49.7 % (35.3-44.9); Hemoglobin 15.6 g/dL (11.5-15.4); Immature Granulocytes % 0.4 % (0-4); Lymphocytes # 2.2 K/mcL (0.6-4.6); Lymphocytes % 27.5 %; Mean Corpuscular HGB Conc 31.4 g/dL (31.6-35.5); Mean Corpuscular Volume 89.1 fL (83.0-100.0); Mean Platelet Volume 10.2 fL (9.4-12.4); Monocytes # 0.5 K/mcL (0.0-1.3); Monocytes % 5.9 %; Neutrophils # 5.2 K/mcL (1.6-8.9); Platelet Count 248 K/mcL (140-400); Red Blood Count 5.58 M/mcL (3.82-4.97); Red Cell Distribution Width 15.3 % (11.5-14.5); Segmented Neutrophils % 65.4 %
[2020-02-02 17:52] LABS: BUN/Creatinine Ratio 32 (6-26); Blood Urea Nitrogen 14 mg/dL (8-23); Calcium 9.8 mg/dL (8.6-10.3); Carbon Dioxide 27 mEq/L (23-29); Chloride 99 mEq/L (98-107); Glucose 110 mg/dL (70-105); Magnesium 1.9 mg/dL (1.6-2.6); Osmolality,Calculated 281 (280-300); Potassium 4.1 mEq/L (3.5-5.1); Sodium 135 mEq/L (136-145); Troponin I < 0.03 ng/mL (< 0.04); eGFR For African Americans > 60 (> 60); eGFR For Non-African Americans > 60 (> 60)
[2020-02-02 18:22] LABS: Adenovirus Not Detected (Not Detect); Bordetella Pertussis Not Detected (Not Detect); Chlamydophila pneumoniae Not Detected (Not Detect); Coronavirus 229E Not Detected (Not Detect); Coronavirus HKU1 Not Detected (Not Detect); Coronavirus NL63 Not Detected (Not Detect); Coronavirus OC43 Not Detected (Not Detect); Human Metapneumovirus Not Detected (Not Detect); Human Rhinovirus/Enterovirus Not Detected (Not Detect); Influenza A Subtype 2009 H1 Not Detected (Not Detect); Influenza B Not Detected (Not Detect); Mycoplasma pneumoniae Not Detected (Not Detect); Parainfluenza Virus 1 Not Detected (Not Detect); Parainfluenza Virus 2 Not Detected (Not Detect); Parainfluenza Virus 3 Not Detected (Not Detect); Parainfluenza Virus 4 Not Detected (Not Detect); Respiratory Syncytial Virus Not Detected (Not Detect); SARS-CoV-2 Not Detected (Not Detect)
[2020-02-02] MEDS ORDERED: 0.9 % Sodium Chloride 1,000 ML IVC ONE (19:40)
[2020-02-02] MEDS ORDERED: Piperacillin/Tazobactam 3.375 GM in 0.9 % Sodium Chloride Mini Bag 100 ML IVPB ONE (19:41)
[2020-02-02] MEDS: 0.9 % Sodium Chloride 1,000 ML IVC SCH (20:08)
[2020-02-02] MEDS ORDERED: Vancomycin 500 MG in 0.9 % Sodium Chloride 250 ML IVPB SCH (22:00)
[2020-02-02] MEDS: Azithromycin 500 MG in 0.9 % Sodium Chloride 250 ML IVPB SCH (23:05)
[2020-02-02] MEDS: MethylPREDNISolone 40 MG/ML VIAL IVP SCH (23:06)
[2020-02-02] MEDS: Ipratropium/Albuterol Neb 3 ML IH SCH (23:42)
[2020-02-03] MEDS: Ipratropium/Albuterol Neb 3 ML IH SCH ×4 (03:59→22:36)
[2020-02-03] MEDS: MethylPREDNISolone 40 MG/ML VIAL IVP SCH ×4 (05:32→23:49)
[2020-02-03] MEDS: Piperacillin/Tazobactam 3.375 GM in 0.9 % Sodium Chloride Mini Bag 100 ML IVPB SCH ×3 (08:01→23:50)
[2020-02-03] MEDS ORDERED: Naloxone 0.4 MG/ML INJ IVP PRN (08:10)
[2020-02-03] MEDS ORDERED: Acetaminophen 325 MG TABLET PO PRN (08:10)
[2020-02-03] MEDS: *HR* HYDROcodone/Acet 5/325 mg TABLET PO PRN ×3 (08:26→23:11)
[2020-02-03] MEDS ORDERED: *HR* Propofol 200 MG/20 ML VIAL IVP ONE (09:44)
[2020-02-03] MEDS ORDERED: *HR* FentaNYL (PF) 100 MCG/2 ML VIAL ONE (09:44)
[2020-02-03] MEDS ORDERED: Dexamethasone 4 MG/ML VIAL ONE (09:45)
[2020-02-03] MEDS ORDERED: *HR* Succinylcholine 200 MG/10 ML VIAL IVP ONE (09:45)
[2020-02-03] MEDS ORDERED: Ondansetron 4 MG/2 ML VIAL ONE (09:45)
[2020-02-03] MEDS ORDERED: Lidocaine -MPF 4% 5 ML AMPUL ONE (09:45)
[2020-02-03] MEDS: Ringers Solution, Lactated 1,000 ML IVC SCH (10:07)
[2020-02-03] MEDS ORDERED: *HR* EPINEPHrine 1 MG/10 ML SYRINGE INTRATRACH PRN (11:14)
[2020-02-03] MEDS: Vancomycin 500 MG in 0.9 % Sodium Chloride Mini Bag 100 ML IVPB SCH ×2 (12:25→23:49)
[2020-02-03] MEDS: 0.9 % Sodium Chloride 1,000 ML IVC SCH (12:37)
[2020-02-03] MEDS: DilTIAZem CD (24hr) 120 MG CAP.ER.24H PO SCH (12:37)
[2020-02-03 15:11] LABS: Source of Body Fluid R LUNG BAL
[2020-02-03] MEDS ORDERED: Isovue-370 500 ML BOTTLE IVP ONE (16:24)
[2020-02-03] MEDS ORDERED: Gadolinium Contrast Agent (WT Based) IV PRN (16:28)
[2020-02-03 17:10] LABS: Appearance of Body Fluid Hazy (Clear); Volume of Body Fluid 20 mL
[2020-02-03] MEDS: Azithromycin 500 MG in 0.9 % Sodium Chloride 250 ML IVPB SCH (22:23)
[2020-02-04] MEDS: 0.9 % Sodium Chloride 1,000 ML IVC SCH (02:18)
[2020-02-04] MEDS: Ipratropium/Albuterol Neb 3 ML IH SCH ×4 (03:30→22:11)
[2020-02-04 05:12] LABS: Basophils % 0.1 %; Hematocrit 43.5 % (35.3-44.9); Immature Granulocytes % 0.6 % (0-4); Lymphocytes # 0.8 K/mcL (0.6-4.6); Lymphocytes % 8.7 %; Mean Corpuscular HGB Conc 31.3 g/dL (31.6-35.5); Mean Corpuscular Hemoglobin 29.1 pg (28.0-33.3); Mean Corpuscular Volume 92.9 fL (83.0-100.0); Mean Platelet Volume 10.1 fL (9.4-12.4); Monocytes # 0.2 K/mcL (0.0-1.3); Monocytes % 2.6 %; Neutrophils # 7.8 K/mcL (1.6-8.9); Platelet Count 211 K/mcL (140-400); Red Blood Count 4.68 M/mcL (3.82-4.97); Red Cell Distribution Width 15.3 % (11.5-14.5); White Blood Count 8.9 K/mcL (4.3-11.1)
[2020-02-04 05:20] LABS: Hemoglobin 13.6 g/dL (11.5-15.4)
[2020-02-04] MEDS: MethylPREDNISolone 40 MG/ML VIAL IVP SCH ×4 (05:26→23:45)
[2020-02-04 05:31] LABS: BUN/Creatinine Ratio 55 (6-26); Blood Urea Nitrogen 22 mg/dL (8-23); Calcium 8.8 mg/dL (8.6-10.3); Carbon Dioxide 23 mEq/L (23-29); Chloride 106 mEq/L (98-107); Glucose 163 mg/dL (70-105); Osmolality,Calculated 289 (280-300); Sodium 136 mEq/L (136-145); eGFR For African Americans > 60 (> 60); eGFR For Non-African Americans > 60 (> 60)
[2020-02-04] MEDS: DilTIAZem CD (24hr) 120 MG CAP.ER.24H PO SCH (09:31)
[2020-02-04] MEDS: Piperacillin/Tazobactam 3.375 GM in 0.9 % Sodium Chloride Mini Bag 100 ML IVPB SCH ×3 (09:31→23:50)
[2020-02-04] MEDS ORDERED: E-Z-PAQUE (BARIUM SULF) SUSP 1 BOTTLE PO ONE (10:57)
[2020-02-04] MEDS ORDERED: E-Z-HD (BARIUM SULF) SUSPENSION PO ONE (10:57)
[2020-02-04] MEDS: Budesonide/Formoterol 80/4.5 1 PUFF INH IH SCH ×2 (11:03→22:12)
[2020-02-04] MEDS: Ringers Solution, Lactated 1,000 ML IVC SCH (11:13)
[2020-02-04 11:34] LABS: Vancomycin,Trough 5 mcg/mL (5-10)
[2020-02-04] MEDS: Vancomycin 1,250 MG/262.5 ML IV.SOLN IVPB SCH (12:14)
[2020-02-04] MEDS: *HR* HYDROcodone/Acet 5/325 mg TABLET PO PRN ×2 (12:21→18:38)
[2020-02-04] MEDS ORDERED: Sennosides/Docusate Sodium TABLET PO PRN (15:14)
[2020-02-04] MEDS ORDERED: *HR* Heparin 5,000 UNIT/ML VIAL SQ SCH (21:00)
[2020-02-04 21:13] LABS: RBC,Pleural Fluid 6000 RBC/mcL
[2020-02-04 21:31] LABS: Lactate Dehydrogenase 134 Units/L (140-271); Total Protein 6.8 g/dL (6.4-8.9)
[2020-02-04 21:51] LABS: Appearance of Pleural Fl Clear (Clear)
[2020-02-04 21:58] LABS: Basophils,Pleural Fluid 0 %; Eosinophils,Pleural Fluid 0 %
[2020-02-04 22:04] LABS: Amylase,Pleural Fluid 10 Units/L (No Ref Range); Glucose,Pleural Fluid 156 mg/dL (No Ref Range); LDH,Pleural Fluid 67 Units/L (No Ref Range); Total Protein,Pleural Fluid < 3.0 g/dL
[2020-02-04] MEDS: Azithromycin 500 MG in 0.9 % Sodium Chloride 250 ML IVPB SCH (23:45)
[2020-02-05] MEDS: Vancomycin 1,250 MG/262.5 ML IV.SOLN IVPB SCH ×2 (00:58→13:04)
[2020-02-05 03:14] LABS: Basophils % 0.1 %; Hematocrit 44.8 % (35.3-44.9); Hemoglobin 13.7 g/dL (11.5-15.4); Immature Granulocytes % 0.5 % (0-4); Lymphocytes # 0.5 K/mcL (0.6-4.6); Lymphocytes % 5.1 %; Mean Corpuscular HGB Conc 30.6 g/dL (31.6-35.5); Mean Corpuscular Hemoglobin 27.9 pg (28.0-33.3); Mean Corpuscular Volume 91.2 fL (83.0-100.0); Mean Platelet Volume 10.4 fL (9.4-12.4); Monocytes # 0.2 K/mcL (0.0-1.3); Monocytes % 2.5 %; Neutrophils # 8.6 K/mcL (1.6-8.9); Platelet Count 215 K/mcL (140-400); Red Blood Count 4.91 M/mcL (3.82-4.97); Red Cell Distribution Width 15.3 % (11.5-14.5); Segmented Neutrophils % 91.8 %; White Blood Count 9.4 K/mcL (4.3-11.1)
[2020-02-05 03:37] LABS: BUN/Creatinine Ratio 66 (6-26); Blood Urea Nitrogen 25 mg/dL (8-23); Calcium 8.8 mg/dL (8.6-10.3); Carbon Dioxide 25 mEq/L (23-29); Chloride 106 mEq/L (98-107); Glucose 167 mg/dL (70-105); Osmolality,Calculated 294 (280-300); Potassium 3.9 mEq/L (3.5-5.1); Sodium 138 mEq/L (136-145); eGFR For African Americans > 60 (> 60); eGFR For Non-African Americans > 60 (> 60)
[2020-02-05] MEDS: Ipratropium/Albuterol Neb 3 ML IH SCH ×4 (04:14→21:48)
[2020-02-05] MEDS: *HR* Enoxaparin 40 MG/0.4 ML SYRINGE SQ SCH (04:30)
[2020-02-05] MEDS: MethylPREDNISolone 40 MG/ML VIAL IVP SCH ×3 (04:30→17:26)
[2020-02-05] MEDS: *HR* HYDROcodone/Acet 5/325 mg TABLET PO PRN ×3 (04:30→17:30)
[2020-02-05] MEDS: Piperacillin/Tazobactam 3.375 GM in 0.9 % Sodium Chloride Mini Bag 100 ML IVPB SCH ×3 (09:36→23:59)
[2020-02-05] MEDS: DilTIAZem CD (24hr) 120 MG CAP.ER.24H PO SCH (09:37)
[2020-02-05] MEDS: Budesonide/Formoterol 80/4.5 1 PUFF INH IH SCH ×2 (10:30→21:48)
[2020-02-05] MEDS ORDERED: *HR* LORazepam 2 MG/ML VIAL IVP ONE (17:30)
[2020-02-05] MEDS: Azithromycin 500 MG in 0.9 % Sodium Chloride 250 ML IVPB SCH (22:03)
[2020-02-06] MEDS: *HR* HYDROcodone/Acet 5/325 mg TABLET PO PRN ×2 (02:15→11:39)
[2020-02-06] MEDS ORDERED: *HR* LORazepam 0.5 MG TABLET PO ONE (02:38)
[2020-02-06] MEDS: Ipratropium/Albuterol Neb 3 ML IH SCH ×3 (03:27→16:21)
[2020-02-06 05:05] LABS: Basophils % 0.1 %; Hematocrit 44.4 % (35.3-44.9); Hemoglobin 13.7 g/dL (11.5-15.4); Immature Granulocytes % 0.4 % (0-4); Lymphocytes # 0.7 K/mcL (0.6-4.6); Lymphocytes % 10.3 %; Mean Corpuscular HGB Conc 30.9 g/dL (31.6-35.5); Mean Corpuscular Hemoglobin 27.8 pg (28.0-33.3); Mean Corpuscular Volume 90.1 fL (83.0-100.0); Mean Platelet Volume 9.8 fL (9.4-12.4); Monocytes # 0.2 K/mcL (0.0-1.3); Monocytes % 2.3 %; Platelet Count 190 K/mcL (140-400); Red Blood Count 4.93 M/mcL (3.82-4.97); Red Cell Distribution Width 14.9 % (11.5-14.5); Segmented Neutrophils % 86.9 %; White Blood Count 6.9 K/mcL (4.3-11.1)
[2020-02-06] MEDS: *HR* Enoxaparin 40 MG/0.4 ML SYRINGE SQ SCH (05:13)
[2020-02-06] MEDS: MethylPREDNISolone 40 MG/ML VIAL IVP SCH ×3 (05:13→11:39)
[2020-02-06 05:25] LABS: BUN/Creatinine Ratio 39 (6-26); Blood Urea Nitrogen 16 mg/dL (8-23); Calcium 8.4 mg/dL (8.6-10.3); Carbon Dioxide 27 mEq/L (23-29); Chloride 104 mEq/L (98-107); Glucose 132 mg/dL (70-105); Osmolality,Calculated 287 (280-300); Potassium 3.5 mEq/L (3.5-5.1); Sodium 137 mEq/L (136-145); eGFR For African Americans > 60 (> 60); eGFR For Non-African Americans > 60 (> 60)
[2020-02-06] MEDS: Piperacillin/Tazobactam 3.375 GM in 0.9 % Sodium Chloride Mini Bag 100 ML IVPB SCH (08:07)
[2020-02-06] MEDS: DilTIAZem CD (24hr) 120 MG CAP.ER.24H PO SCH (08:08)
[2020-02-06] MEDS: Budesonide/Formoterol 80/4.5 1 PUFF INH IH SCH (10:12)
[2020-02-06] MEDS: Vancomycin 1,250 MG/262.5 ML IV.SOLN IVPB SCH ×2 (11:42)
[2020-02-06] MEDS ORDERED: *HR* LORazepam 2 MG/ML VIAL IVP PRN (14:00)
[2020-02-06] MEDS ORDERED: *HR* LORazepam 1 MG TABLET PO PRN (14:00)
[2020-02-06 15:14] VITALS: BP 147/87
[2020-02-06] MEDS ORDERED: *HR* LORazepam 1 MG TABLET PO ONE ×2 (15:19→15:20)
== END 2020-02-06 17:51 | disposition home or self-care (01) | DRG 180 ==
LOC: EMEROOARM 16:44 → 3ANU 16:44 → SUATTDRO 20:44 → 3ANU 22:21 → SUATTDRO 02-04 14:40
PROVIDERS: ADMIT Student in an Organized Health Care Education/Training Program; ATTEND Internal Medicine

== ENCOUNTER 2020-02-07 21:14 | Inpatient (IN) ==
[2020-02-07] MEDS ORDERED: Isovue-370 500 ML BOTTLE IVP ONE (21:29)
[2020-02-07] MEDS ORDERED: 0.9 % Sodium Chloride 1,000 ML IVC ONE (21:46)
[2020-02-07] MEDS ORDERED: *HR* FentaNYL (PF) 100 MCG/2 ML VIAL IVP ONE (21:46)
[2020-02-07] MEDS ORDERED: methylPREDNISolone 125 MG/2 ML VIAL IVP ONE (21:50)
[2020-02-07] MEDS ORDERED: Ipratropium/Albuterol Neb 3 ML IH ONE (21:50)
[2020-02-07 21:52] LABS: Basophils % 0.2 %; Immature Granulocytes % 0.7 % (0-4); Lymphocytes # 0.8 K/mcL (0.6-4.6); Lymphocytes % 4.2 %; Mean Corpuscular HGB Conc 31.9 g/dL (31.6-35.5); Mean Corpuscular Hemoglobin 28.3 pg (28.0-33.3); Mean Corpuscular Volume 88.6 fL (83.0-100.0); Mean Platelet Volume 9.4 fL (9.4-12.4); Monocytes # 0.8 K/mcL (0.0-1.3); Monocytes % 3.9 %; Neutrophils # 18.3 K/mcL (1.6-8.9); Platelet Count 236 K/mcL (140-400); Red Blood Count 6.25 M/mcL (3.82-4.97); Red Cell Distribution Width 14.6 % (11.5-14.5)
[2020-02-07 21:58] LABS: Hematocrit 55.4 % (35.3-44.9); Hemoglobin 17.7 g/dL (11.5-15.4); White Blood Count 20.1 K/mcL (4.3-11.1)
[2020-02-07 22:16] LABS: BUN/Creatinine Ratio 39 (6-26); Blood Urea Nitrogen 22 mg/dL (8-23); Calcium 9.4 mg/dL (8.6-10.3); Carbon Dioxide 35 mEq/L (23-29); Chloride 93 mEq/L (98-107); Glucose 149 mg/dL (70-105); Osmolality,Calculated 292 (280-300); Sodium 138 mEq/L (136-145); eGFR For African Americans > 60 (> 60); eGFR For Non-African Americans > 60 (> 60)
[2020-02-07 22:17] LABS: Troponin I < 0.03 ng/mL (< 0.04)
[2020-02-08] MEDS ORDERED: *HR* LORazepam 2 MG/ML VIAL IVP ONE (00:34)
[2020-02-08] MEDS ORDERED: Potassium Chloride 40 MEQ, Lidocaine 1% 2 ML in 0.9 % Sodium Chloride 500 ML IVPB ONE (00:45)
[2020-02-08] MEDS ORDERED: Naloxone 0.4 MG/ML INJ IVP PRN (01:20)
[2020-02-08] MEDS ORDERED: Albuterol 2.5 MG/3 ML NEBULIZER IH PRN (03:16)
[2020-02-08] MEDS: Ipratropium/Albuterol Neb 3 ML IH SCH ×4 (03:58→21:25)
[2020-02-08] MEDS ORDERED: ALPRAZolam 1 MG TABLET PO PRN (04:22)
[2020-02-08 05:58] LABS: Hematocrit 49.2 % (35.3-44.9); Mean Corpuscular HGB Conc 31.7 g/dL (31.6-35.5); Mean Corpuscular Hemoglobin 28.2 pg (28.0-33.3); Mean Corpuscular Volume 88.8 fL (83.0-100.0); Mean Platelet Volume 9.9 fL (9.4-12.4); Platelet Count 217 K/mcL (140-400); Red Blood Count 5.54 M/mcL (3.82-4.97); Red Cell Distribution Width 14.7 % (11.5-14.5); White Blood Count 11.5 K/mcL (4.3-11.1)
[2020-02-08 06:01] LABS: Hemoglobin 15.6 g/dL (11.5-15.4)
[2020-02-08 06:21] LABS: Alanine Aminotransferase 19 Units/L (7-52); Albumin 3.6 g/dL (3.5-5.7); Albumin/Globulin Ratio 1.4 (1.1-2.2); Alkaline Phosphatase 48 Units/L (34-104); Aspartate Amino Transferase 21 Units/L (13-39); BUN/Creatinine Ratio 43 (6-26); Bilirubin,Total 0.6 mg/dL (0.3-1.0); Blood Urea Nitrogen 17 mg/dL (8-23); Calcium 8.7 mg/dL (8.6-10.3); Carbon Dioxide 30 mEq/L (23-29); Chloride 102 mEq/L (98-107); Globulin 2.6 g/dL (2.4-3.5); Glucose 151 mg/dL (70-105); Magnesium 1.9 mg/dL (1.6-2.6); Osmolality,Calculated 294 (280-300); Phosphorous 2.6 mg/dL (2.7-4.5); Potassium 3.7 mEq/L (3.5-5.1); Sodium 140 mEq/L (136-145); Total Protein 6.2 g/dL (6.4-8.9); Troponin I < 0.03 ng/mL (< 0.04); eGFR For African Americans > 60 (> 60); eGFR For Non-African Americans > 60 (> 60)
[2020-02-08] MEDS: *HR* Heparin 5,000 UNIT/ML VIAL SQ SCH ×2 (06:47→20:13)
[2020-02-08] MEDS: predniSONE 20 MG TABLET PO SCH ×2 (07:59→08:02)
[2020-02-08] MEDS: levoFLOXacin 750 MG/150 ML 750 MG/150 ML BAG IVPB SCH (07:59)
[2020-02-08 08:28] LABS: ABG Base Excess 5 mEq/L (-2 to 3); ABG HCO3 31 mEq/L (21-27); ABG Oxygen Saturation 87 % (95-98); ABG PCO2 48 mmHg (35-45); ABG PH 7.42 pH Units (7.32-7.45); ABG PO2 54 mmHg (85-104); ABG TCO2 33 mEq/L (20-26)
[2020-02-08] MEDS ORDERED: Dexmedetomidine HCl 400 MCG/100 ML MLS IVC SCH (09:30)
[2020-02-08] MEDS ORDERED: Ipratropium Neb 0.5 MG NEBULIZER IH PRN (10:53)
[2020-02-08] MEDS ORDERED: Acetaminophen IV 1,000 MG/100 ML INFUS..BTL IVPB ONE (10:57)
[2020-02-08] MEDS ORDERED: 0.9 % Sodium Chloride 1,000 ML IVC SCH (11:15)
[2020-02-08] MEDS: Levalbuterol Neb 0.63 MG/3 ML IH SCH ×3 (11:27→21:24)
[2020-02-08] MEDS: Pantoprazole 40 MG VIAL IVP SCH (11:28)
[2020-02-08] MEDS: MethylPREDNISolone 40 MG/ML VIAL IVP SCH (11:29)
[2020-02-08] MEDS ORDERED: Furosemide 40 MG/4 ML VIAL IVP STA (15:36)
[2020-02-08 17:17] LABS: ABG Base Excess 5 mEq/L (-2 to 3); ABG HCO3 32 mEq/L (21-27); ABG Oxygen Saturation 95 % (95-98); ABG PCO2 55 mmHg (35-45); ABG PH 7.38 pH Units (7.32-7.45); ABG PO2 78 mmHg (85-104); ABG TCO2 34 mEq/L (20-26)
[2020-02-08 18:29] LABS: Adenovirus Not Detected (Not Detect); Bordetella Pertussis Not Detected (Not Detect); Chlamydophila pneumoniae Not Detected (Not Detect); Coronavirus 229E Not Detected (Not Detect); Coronavirus HKU1 Not Detected (Not Detect); Coronavirus NL63 Not Detected (Not Detect); Coronavirus OC43 Not Detected (Not Detect); Human Metapneumovirus Not Detected (Not Detect); Human Rhinovirus/Enterovirus Not Detected (Not Detect); Influenza A Subtype 2009 H1 Not Detected (Not Detect); Influenza B Not Detected (Not Detect); Mycoplasma pneumoniae Not Detected (Not Detect); Parainfluenza Virus 1 Not Detected (Not Detect); Parainfluenza Virus 2 Not Detected (Not Detect); Parainfluenza Virus 3 Not Detected (Not Detect); Parainfluenza Virus 4 Not Detected (Not Detect); Respiratory Syncytial Virus Not Detected (Not Detect); SARS-CoV-2 Not Detected (Not Detect)
[2020-02-08] MEDS: Dexmedetomidine HCl 400 MCG/100 ML MLS IVC SCH (19:00)
[2020-02-09] MEDS: Ipratropium/Albuterol Neb 3 ML IH SCH ×4 (03:34→21:28)
[2020-02-09] MEDS: Levalbuterol Neb 0.63 MG/3 ML IH SCH ×4 (03:34→21:28)
[2020-02-09 04:51] LABS: Basophils % 0.2 %; Hematocrit 50.8 % (35.3-44.9); Hemoglobin 16.2 g/dL (11.5-15.4); Immature Granulocytes % 0.5 % (0-4); Lymphocytes # 1.3 K/mcL (0.6-4.6); Lymphocytes % 7.4 %; Mean Corpuscular HGB Conc 31.9 g/dL (31.6-35.5); Mean Corpuscular Hemoglobin 29.1 pg (28.0-33.3); Mean Corpuscular Volume 91.2 fL (83.0-100.0); Mean Platelet Volume 9.7 fL (9.4-12.4); Monocytes # 0.9 K/mcL (0.0-1.3); Monocytes % 4.8 %; Neutrophils # 15.6 K/mcL (1.6-8.9); Platelet Count 170 K/mcL (140-400); Red Blood Count 5.57 M/mcL (3.82-4.97); Red Cell Distribution Width 14.7 % (11.5-14.5); Segmented Neutrophils % 87.1 %
[2020-02-09 04:58] LABS: White Blood Count 17.9 K/mcL (4.3-11.1)
[2020-02-09] MEDS: *HR* Heparin 5,000 UNIT/ML VIAL SQ SCH (05:08)
[2020-02-09 05:14] LABS: BUN/Creatinine Ratio 67 (6-26); Blood Urea Nitrogen 28 mg/dL (8-23); Calcium 8.9 mg/dL (8.6-10.3); Carbon Dioxide 34 mEq/L (23-29); Chloride 99 mEq/L (98-107); Glucose 128 mg/dL (70-105); Osmolality,Calculated 297 (280-300); Potassium 3.4 mEq/L (3.5-5.1); Sodium 140 mEq/L (136-145); eGFR For African Americans > 60 (> 60); eGFR For Non-African Americans > 60 (> 60)
[2020-02-09] MEDS: MethylPREDNISolone 40 MG/ML VIAL IVP SCH (07:05)
[2020-02-09] MEDS: Pantoprazole 40 MG VIAL IVP SCH (07:05)
[2020-02-09] MEDS: levoFLOXacin 750 MG/150 ML 750 MG/150 ML BAG IVPB SCH (07:05)
[2020-02-09] MEDS: Dexmedetomidine HCl 400 MCG/100 ML MLS IVC SCH (08:34)
[2020-02-09] MEDS ORDERED: Morphine Sulfate 2 MG/ML SYRINGE IVP PRN ×2 (08:54→09:29)
[2020-02-09] MEDS ORDERED: *HR* LORazepam 2 MG/ML VIAL IVP PRN ×2 (08:55→09:24)
[2020-02-09] MEDS: Morphine Sulfate Oral CONC 10 MG/0.5 ML ORAL.SYG SL SCH ×4 (09:55→20:02)
[2020-02-09] MEDS: *HR* LORazepam Oral Conc 2 MG/ML SL SCH ×2 (11:35→18:06)
[2020-02-10] MEDS: Morphine Sulfate Oral CONC 10 MG/0.5 ML ORAL.SYG SL SCH ×3 (00:28→09:02)
[2020-02-10] MEDS: *HR* LORazepam Oral Conc 2 MG/ML SL SCH ×3 (00:28→10:34)
[2020-02-10] MEDS: Levalbuterol Neb 0.63 MG/3 ML IH SCH ×2 (03:49→09:45)
[2020-02-10] MEDS: Ipratropium/Albuterol Neb 3 ML IH SCH ×2 (05:29→09:46)
[2020-02-10 07:33] VITALS: BP 113/74
[2020-02-10] MEDS: MethylPREDNISolone 40 MG/ML VIAL IVP SCH (09:03)
[2020-02-10] MEDS: levoFLOXacin 750 MG/150 ML 750 MG/150 ML BAG IVPB SCH (09:11)
[2020-02-10] MEDS: Pantoprazole 40 MG VIAL IVP SCH (09:11)
== END 2020-02-10 11:28 | disposition hospice, inpatient (51) | DRG 871 ==
LOC: 2ANU 21:14 → EMEROOARM 21:14 → SUATTDRO 02-08 00:28 → 2ANU 02-08 00:52 → 2NNU 02-08 10:18 → SUATTDRO 02-08 11:26 → ICNU 02-08 19:17 → 2ANU 02-09 22:01
PROVIDERS: ADMIT Family Medicine; ATTEND Internal Medicine

== ENCOUNTER 2020-02-10 10:05 | Inpatient (IN) ==
[2020-02-10] MEDS ORDERED: Bisacodyl 10 MG RECTAL SUPPOSITORY RC PRN (10:12)
[2020-02-10] MEDS ORDERED: Haloperidol Lactate 5 MG/ML VIAL IVP PRN (10:12)
[2020-02-10] MEDS ORDERED: Atropine Sulfate 1% 40 DROP/2 ML BOTTLE SL PRN (10:12)
[2020-02-10] MEDS ORDERED: *HR* LORazepam 2 MG/ML VIAL IVP PRN (10:12)
[2020-02-10] MEDS ORDERED: Morphine Sulfate 2 MG/ML SYRINGE IVP PRN (10:17)
[2020-02-10] MEDS ORDERED: *HR* LORazepam Oral Conc 2 MG/ML PO SCH (12:00)
[2020-02-10] MEDS ORDERED: Morphine Sulfate Oral CONC 10 MG/0.5 ML ORAL.SYG SL SCH (14:00)
[2020-02-10] MEDS ORDERED: Levalbuterol Neb 1.25 MG/3 ML IH SCH (16:00)
[2020-02-10] MEDS ORDERED: Ipratropium/Albuterol Neb 3 ML IH SCH (16:00)
== END 2020-02-10 11:55 | disposition expired | DRG 951 ==
LOC: 2ANU 11:28
PROVIDERS: ADMIT Internal Medicine Hospice and Palliative Medicine; ATTEND Internal Medicine Hospice and Palliative Medicine